=== PATIENT | female | born 1960 | race Caucasian/White ===

== ENCOUNTER → 2018-09-06 09:59 | Outpatient (CLI) | payer OTHER, SELFPAY ==
[2018-09-06 12:20] LABS: Anion Gap 5 (5-15); BUN 15 mg/dL (7-18); Calcium,Total 8.9 mg/dL (8.5-10.1); Chloride 104 mmol/L (98-107); Creatinine, Serum 0.83 mg/dL (0.55-1.02); EST Glomerular Filtration Rate 75 mL/min (>60); Est Glom Filt Rate - Afr Amer 91 mL/min (>60); Glucose 87 mg/dL (74-106); Sodium Level 140 mmol/L (136-145)
== END ==
PROVIDERS: Family Provider Family Medicine; PCP Family Medicine; Visit Provider Family Medicine
DX: I10 Essential (primary) hypertension (principal)
CPT/HCPCS: 36415; 80048

== ENCOUNTER → 2019-03-06 16:46 | Outpatient (CLI) | payer OTHER, SELFPAY ==
--- NOTE | 2019-03-06 16:52 | RAD_ITS ---
STUDY: X-RAY - RIGHT WRIST REASON FOR EXAM: Female, 59 years old. Increasing wrist pain TECHNIQUE: 3 view(s) of the wrist were obtained. COMPARISON: None. FINDINGS: Scapholunate advanced collapse is noted. There is fragmentation of the lunate. Soft tissues are intact. 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 Electronically Signed: Gonzalo Vega MD at 9:20 EDT Tel , Service support ,
--- NOTE | 2019-03-06 16:53 | RAD_ITS ---
STUDY: X-RAY - LEFT HAND REASON FOR EXAM: Female, 59 years old. Increasing left hand pain TECHNIQUE: 3 view(s) of the hand. COMPARISON: None. FINDINGS: Normal radiocarpal articulation. Normal distal radioulnar joint. Normal visualized carpal bones. Normal carpal articulations Normal carpometacarpal articulation of the thumb. Normal second through fifth carpometacarpal joints. Normal metacarpi. Normal metacarpophalangeal joint of the thumb. Normal interphalangeal joint of the thumb. Normal proximal and distal phalanges of the thumb. Normal metacarpophalangeal joints of the second through fifth fingers. Second digit distal interphalangeal osteoarthritis. Normal phalanges of the second through fifth fingers. The soft tissue structures are unremarkable. RAD/Hand Min 3 Views IMPRESSION: Second digit distal interphalangeal osteoarthritis. Electronically Signed: Gonzalo Vega MD at 9:12 EDT Tel , Service support ,
[2019-03-06 18:06] LABS: Erythrocyte Sedimentation Rate 8 mm/hr (0-30)
[2019-03-06 18:08] LABS: Absolute Lymphocyte Count 3.28 X10^3/ul (0.83-4.51); Absolute Neutrophil Count 6.6 X10^3/uL (2.0-7.7); Basophil# 0.06 X10^3/uL; Basophil% 0.6 % (0-1); Eosinophil# 0.19 X10^3/uL; Eosinophils% 1.8 % (0-5); Hematocrit 43.2 % (37-47); Hemoglobin 14.2 g/dl (12.0-15.0); Lymphocyte # 3.28 X10^3/ul (4.0); Lymphocyte % 30.5 % (19-41); Mean Corp Hgb Conc 32.9 g/gl (32-36); Mean Corpuscular Hgb 28.2 pg (27.0-32.0); Mean Corpuscular Volume 85.9 fL (81-99); Mean Platelet Vol. 10.6 fl (6.2-12.0); Monocyte# 0.62 X10^3/uL; Monocyte% 5.8 % (0-10); Neutrophil # 6.59 X10^3/uL (2.7-7.7); Neutrophil % 61.1 % (47-70); POSITIVE COUNT NO; POSITIVE DIFFERENTIAL NO; POSITIVE MORPHOLOGY NO; Platelet Count 282 K/mm3 (150-450); RBC Distribution Width CV 13.8 % (11.6-14.6); RBC Distribution Width SD 43.3 fl (35.1-43.9); Red Blood Count 5.03 M/mm3 (4.2-5.4); White Blood Count 10.8 K/mm3 (4.4-11.0)
[2019-03-06 18:31] LABS: Anion Gap 7 (5-15); BUN 18 mg/dL (7-18); BUN/Creat Ratio 24.5 RATIO (10-20); Chloride 101 mmol/L (98-107); Creatinine, Serum 0.73 mg/dL (0.55-1.02); EST Glomerular Filtration Rate 87 mL/min (>60); Est Glom Filt Rate - Afr Amer 105 mL/min (>60); Glucose 88 mg/dL (74-106); Potassium 3.7 mmol/L (3.5-5.1); Rheumatoid Factor < 10.0 IU/mL (<15); Sodium Level 140 mmol/L (136-145)
[2019-03-09 15:57] LABS: ANTINUCLEAR ANTIBODIES DIRECT Negative (Negative)
== END ==
PROVIDERS: Family Provider Family Medicine; PCP Family Medicine; Referring Provider Family Medicine; Visit Provider Family Medicine
DX: M25.531 Pain in right wrist (principal); M79.642 Pain in left hand; M25.50 Pain in unspecified joint; I10 Essential (primary) hypertension
CPT/HCPCS: 36415; 73110; 73130; 80048; 85025; 85652; 86038; 86140; 86431

== ENCOUNTER → 2019-05-03 | Outpatient (CLI) | payer OTHER, SELFPAY ==
[2019-05-03 09:09] LABS: Lyme Ab Screen Interpretation REF LAB
[2019-05-05 14:01] LABS: Lyme Scn Total Ab w/Rflx <0.91 ISR (0.00-0.90)
== END | disposition home or self-care (01) ==
LOC: MFPLAB 09:07
PROVIDERS: Family Provider Family Medicine; PCP Family Medicine; Referring Provider Family Medicine; Visit Provider Family Medicine
DX: T14.8XXA Other injury of unspecified body region, initial encounter (principal); W57.XXXA Bitten or stung by nonvenomous insect and other nonvenomous arthropods, initial encounter
CPT/HCPCS: 36415; 86618

== ENCOUNTER → 2019-05-09 | Outpatient (CLI) | payer OTHER, SELFPAY ==
[2019-05-09 15:48] LABS: Absolute Lymphocyte Count 3.08 X10^3/ul (0.83-4.51); Basophil# 0.04 X10^3/uL; Basophil% 0.4 % (0-1); Eosinophil# 0.27 X10^3/uL; Eosinophils% 2.7 % (0-5); Hematocrit 43.4 % (37-47); Hemoglobin 14.4 g/dl (12.0-15.0); Lymphocyte # 3.08 X10^3/ul (4.0); Lymphocyte % 30.9 % (19-41); Mean Corp Hgb Conc 33.2 g/gl (32-36); Mean Corpuscular Hgb 27.6 pg (27.0-32.0); Mean Corpuscular Volume 83.1 fL (81-99); Mean Platelet Vol. 10.9 fl (6.2-12.0); Monocyte# 0.58 X10^3/uL; Monocyte% 5.8 % (0-10); Neutrophil # 5.98 X10^3/uL (2.7-7.7); Platelet Count 267 K/mm3 (150-450); RBC Distribution Width CV 14.1 % (11.6-14.6); RBC Distribution Width SD 42.3 fl (35.1-43.9); Red Blood Count 5.22 M/mm3 (4.2-5.4)
[2019-05-09 15:49] LABS: POSITIVE COUNT NO; POSITIVE DIFFERENTIAL NO; POSITIVE MORPHOLOGY NO
[2019-05-09 16:31] LABS: ALB/GLOB Ratio 1.2 RATIO (0.9-2.4); AST(SGOT) 25 U/L (15-37); Alanine Aminotransfer ALT/SGPT 31 U/L (13-56); Albumin, Serum 3.5 g/dL (3.2-5.0); Alkaline Phosphatase 110 U/L (45-117); Anion Gap 4 (5-15); BUN 15 mg/dL (7-18); BUN/Creat Ratio 18.9 RATIO (10-20); Calcium,Total 8.4 mg/dL (8.5-10.1); Chloride 103 mmol/L (98-107); EST Glomerular Filtration Rate 79 mL/min (>60); Est Glom Filt Rate - Afr Amer 95 mL/min (>60); Glucose 81 mg/dL (74-106); Potassium 3.8 mmol/L (3.5-5.1); Protein, Total 6.5 g/dL (6.4-8.2); Sodium Level 138 mmol/L (136-145)
== END | disposition home or self-care (01) ==
LOC: MFPLAB 13:55
PROVIDERS: Family Provider Family Medicine; PCP Family Medicine; Referring Provider Family Medicine; Visit Provider Family Medicine
DX: I10 Essential (primary) hypertension (principal); R63.5 Abnormal weight gain; M25.50 Pain in unspecified joint; E66.9 Obesity, unspecified
CPT/HCPCS: 36415; 80053; 82533; 84443; 85025

== ENCOUNTER 2020-07-27 14:59 | Outpatient (RCR) | payer OTHER, SELFPAY | END 2020-07-27 23:59 | LOC: NS 14:59 | PROVIDERS: PCP Family Medicine; Visit Provider Family Medicine | DX: Z71.3 Dietary counseling and surveillance (principal); E66.9 Obesity, unspecified; Z68.42 Body mass index [BMI] 45.0-49.9, adult | CPT/HCPCS: 97802 ==

== ENCOUNTER 2020-08-25 15:00 | Outpatient (RCR) | payer OTHER, SELFPAY | END 2020-08-26 23:59 | LOC: NS 15:00 | PROVIDERS: PCP Family Medicine; Visit Provider Family Medicine | DX: Z71.3 Dietary counseling and surveillance (principal); E66.9 Obesity, unspecified; Z68.42 Body mass index [BMI] 45.0-49.9, adult | CPT/HCPCS: 97803 ==

== ENCOUNTER 2020-09-08 16:33 | Outpatient (RCR) | payer OTHER, SELFPAY | END 2020-09-26 23:59 | LOC: NS 16:33 | PROVIDERS: PCP Family Medicine; Visit Provider Family Medicine | DX: Z71.3 Dietary counseling and surveillance (principal); E66.9 Obesity, unspecified; Z68.42 Body mass index [BMI] 45.0-49.9, adult | CPT/HCPCS: 97803 ==

== ENCOUNTER 2020-10-12 15:00 | Outpatient (RCR) | payer OTHER, SELFPAY | END 2020-10-26 23:59 | LOC: NS 15:00 | PROVIDERS: PCP Family Medicine; Visit Provider Family Medicine | DX: Z71.3 Dietary counseling and surveillance (principal); E66.9 Obesity, unspecified; Z68.42 Body mass index [BMI] 45.0-49.9, adult | CPT/HCPCS: 97803 ==

== ENCOUNTER 2020-11-16 09:00 | Outpatient (RCR) | payer OTHER, SELFPAY | END 2020-11-26 23:59 | LOC: NS 09:00 | PROVIDERS: PCP Family Medicine; Visit Provider Family Medicine | DX: Z71.3 Dietary counseling and surveillance (principal); E66.9 Obesity, unspecified; Z68.42 Body mass index [BMI] 45.0-49.9, adult | CPT/HCPCS: 97803 ==

== ENCOUNTER 2020-12-14 08:56 | Outpatient (RCR) | payer OTHER, SELFPAY | END 2020-12-27 23:59 | LOC: NS 08:56 | PROVIDERS: PCP Family Medicine; Visit Provider Family Medicine | DX: Z71.3 Dietary counseling and surveillance (principal); E66.9 Obesity, unspecified; Z68.42 Body mass index [BMI] 45.0-49.9, adult | CPT/HCPCS: 97803 ==

== ENCOUNTER 2021-01-18 15:30 | Outpatient (RCR) | payer OTHER, SELFPAY | END 2021-01-24 23:59 | LOC: NS 15:30 | PROVIDERS: PCP Family Medicine; Visit Provider Family Medicine | DX: Z71.3 Dietary counseling and surveillance (principal); E66.9 Obesity, unspecified; Z68.42 Body mass index [BMI] 45.0-49.9, adult | CPT/HCPCS: 97803 ==

== ENCOUNTER → 2021-04-19 15:47 | Outpatient (CLI) | payer OTHER, SELFPAY ==
--- NOTE | 2021-04-19 15:50 | RAD_ITS ---
STUDY: X-RAY - PELVIS AND LEFT HIP REASON FOR EXAM: Female, 61 years old. Left hip pain TECHNIQUE: 3 views of the pelvis and hip. COMPARISON: None. FINDINGS: There is a non-specific bowel gas pattern. Normal visualized soft tissue structures. Normal bilateral iliac wings, sacroiliac joints and visualized sacrum. Normal bilateral superior and inferior pubic rami. Normal pubic symphysis. Normal bilateral ischial tuberosities. Normal visualized femoral head. Normal acetabulum. Normal hip joint. RAD/HIP, UNI W/ Pelvis 2-3 Views IMPRESSION: Normal x-ray examination of the pelvis and hip. Electronically Signed: Michael White MD at 10:13 EDT , Service support ,
== END ==
PROVIDERS: PCP Family Medicine; Referring Provider Nurse Practitioner Family; Visit Provider Nurse Practitioner Family
DX: M25.552 Pain in left hip (principal)
CPT/HCPCS: 73502

== ENCOUNTER → 2021-06-15 16:11 | Outpatient (CLI) | payer OTHER, SELFPAY ==
[2021-06-15 17:59] LABS: Anion Gap 6 (5-15); BUN 15 mg/dL (7-18); Calcium,Total 8.8 mg/dL (8.5-10.1); Chloride 102 mmol/L (98-107); Creatinine, Serum 0.88 mg/dL (0.55-1.02); EST Glomerular Filtration Rate 69 mL/min (>60); Est Glom Filt Rate - Afr Amer 84 mL/min (>60); Glucose 79 mg/dL (74-106); Potassium 3.5 mmol/L (3.5-5.1); Sodium Level 140 mmol/L (136-145)
== END ==
PROVIDERS: PCP Family Medicine; Visit Provider Family Medicine
DX: I10 Essential (primary) hypertension (principal); Z20.822 Contact with and (suspected) exposure to COVID-19
CPT/HCPCS: 36415; 80048; 86769

== ENCOUNTER → 2021-10-25 10:27 | Outpatient (CLI) | payer OTHER, SELFPAY ==
--- NOTE | 2021-10-25 10:31 | RAD_ITS ---
STUDY: X-RAY - LEFT SHOULDER REASON FOR EXAM: Female, 61 years old. Shoulder pain. TECHNIQUE: 4 view(s) of the shoulder. COMPARISON: MRI of the left shoulder dated 04/23/2014. FINDINGS: Osteopenia. Severe arthrosis of the glenohumeral joint with substantial osteophyte formation. Moderate arthrosis of the AC joint. Small subacromial spur. Sclerosis and cystic change of the greater tuberosity. At least 2 intra-articular osteochondral bodies, the largest of which measures approximately 13 mm in diameter. Normal visualized pulmonary apex. RAD/Shoulder min 2 Views IMPRESSION: Osteopenia with severe arthrosis of the glenohumeral joint. Moderate arthrosis of the AC joint. Sclerosis and cystic change of the humeral head. Intra-articular osteochondral bodies. Electronically Signed: Glenn Elaine MD at 11:22 EST , Service support ,
== END ==
PROVIDERS: PCP Family Medicine; Referring Provider Family Medicine; Visit Provider Family Medicine
DX: M25.512 Pain in left shoulder (principal)
CPT/HCPCS: 73030

== ENCOUNTER 2022-01-26 09:10 | Outpatient (CLI) | payer OTHER, SELFPAY ==
[2022-01-26 10:31] LABS: Color, Urine Yellow (Yellow); Glucose, Dipstick Normal (Normal); Ketone-Dipstick Negative (Negative); Leukocyte Esterase-Dipstick Negative /ul (Negative); Nitrite-Dipstick Negative (Negative); Occult Blood-Urine Negative /ul (Negative); Protein-Dipstick Negative (Negative); Specific Gravity, Urine 1.015 (1.002-1.030); Urine Bilirubin Dipstick Negative (Negative); Urine Clarity Clear (Clear); Urine Urobilinogen Normal (Normal)
[2022-01-26 10:38] LABS: Absolute Lymphocyte Count 1.86 X10^3/uL (0.83-4.51); Absolute Neutrophil Count 4.8 X10^3/uL (2.0-7.7); Basophil# 0.05 X10^3/uL; Basophil% 0.7 % (0-1); Eosinophil# 0.07 X10^3/uL; Hematocrit 43.4 % (37-47); Hemoglobin 14.3 g/dL (12.0-15.0); Lymphocyte # 1.86 X10^3/ul (0.83-4.51); Lymphocyte % 25.4 % (19-41); Mean Corp Hgb Conc 32.9 g/dL (32-36); Mean Corpuscular Hgb 27.7 pg (27.0-32.0); Mean Corpuscular Volume 83.9 fL (81-99); Monocyte# 0.51 X10^3/uL; NRBC Flagged by Analyzer 0 % (0-5); Neutrophil # 4.82 X10^3/uL (2.7-7.7); Neutrophil % 65.6 % (47-70); Platelet Count 272 K/mm3 (150-450); RBC Distribution Width CV 14.6 % (11.6-14.6); RBC Distribution Width SD 44.2 fl (35.1-43.9); Red Blood Count 5.17 M/mm3 (4.2-5.4); White Blood Count 7.3 K/mm3 (4.4-11.0)
[2022-01-26 10:47] LABS: International Normalized Ratio 0.9; Prothrombin Time (Protime)PT. 11.9 SECONDS (11.7-14.9)
[2022-01-26 10:48] LABS: Partial Thromboplast Time 32.4 Seconds (24.1-36.2)
[2022-01-26 11:01] LABS: Cholesterol 188 mg/dL (200); High Density Lipoprotein 57 mg/dL; Thyroid Stim Hormone (TSH) 0.83 uIU/mL (0.358-3.74); Triglycerides 73 mg/dL; Very Low Density Lipoprotein 15 mg/dL (5-40)
[2022-01-26 11:03] LABS: Vitamin D,25 Hydroxy 47.5 ng/mL
[2022-01-26 11:08] LABS: Anion Gap 6 (5-15); BUN 14 mg/dL (7-18); BUN/Creat Ratio 18.3 RATIO (10-20); Calcium,Total 9.6 mg/dL (8.5-10.1); Chloride 104 mmol/L (98-107); Creatinine, Serum 0.76 mg/dL (0.55-1.02); EST Glomerular Filtration Rate 82 mL/min (>60); Est Glom Filt Rate - Afr Amer 99 mL/min (>60); Glucose 112 mg/dL (74-106); Potassium 4.1 mmol/L (3.5-5.1); Sodium Level 140 mmol/L (136-145)
== END 2022-01-26 23:59 | disposition home or self-care (01) ==
LOC: MFPLAB 09:11
PROVIDERS: Orthopaedic Surgery; PCP Family Medicine; Referring Provider Family Medicine; Visit Provider Family Medicine
DX: Z01.812 Encounter for preprocedural laboratory examination (principal); Z01.818 Encounter for other preprocedural examination; I10 Essential (primary) hypertension; Z13.220 Encounter for screening for lipoid disorders; Z13.29 Encounter for screening for other suspected endocrine disorder; Z13.21 Encounter for screening for nutritional disorder; Z00.00 Encounter for general adult medical examination without abnormal findings
CPT/HCPCS: 36415; 80048; 80061; 81002; 82306; 84443; 85025; 85610; 85730; 87086; 87088

== ENCOUNTER → 2022-05-31 | Outpatient (CLI) | payer OTHER, SELFPAY ==
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
== END | disposition home or self-care (01) ==
LOC: MTRAD 10:51
PROVIDERS: PCP Family Medicine; Referring Provider Family Medicine; Visit Provider Family Medicine
DX: M79.604 Pain in right leg (principal); S80.10XA Contusion of unspecified lower leg, initial encounter
CPT/HCPCS: 73590; 73610

== ENCOUNTER → 2023-05-23 | Outpatient (CLI) | payer OTHER, SELFPAY ==
[2023-05-23 12:49] LABS: Erythrocyte Sedimentation Rate 11 mm/hr (0-30)
[2023-05-23 14:06] LABS: Anion Gap 8 (5-15); BUN 15 mg/dL (7-18); BUN/Creat Ratio 17.1 RATIO (10-20); Calcium,Total 9.3 mg/dL (8.5-10.1); Chloride 104 mmol/L (98-107); Cholesterol 208 mg/dL (200); Creatinine, Serum 0.88 mg/dL (0.55-1.02); EST Glomerular Filtration Rate 70 mL/min (>60); Est Glom Filt Rate - Afr Amer 84 mL/min (>60); Glucose 103 mg/dL (74-106); High Density Lipoprotein 66 mg/dL; Potassium 4.2 mmol/L (3.5-5.1); Sodium Level 138 mmol/L (136-145); Triglycerides 97 mg/dL; Very Low Density Lipoprotein 19 mg/dL (5-40)
[2023-05-23 15:53] LABS: Hemoglobin A1c 5.2 % (3.8-5.6)
== END | disposition home or self-care (01) ==
LOC: MFPLAB 10:46
PROVIDERS: PCP Family Medicine; Visit Provider Family Medicine
DX: R73.01 Impaired fasting glucose (principal); R79.89 Other specified abnormal findings of blood chemistry; I10 Essential (primary) hypertension
CPT/HCPCS: 36415; 80048; 80061; 82533; 83036; 85652

== ENCOUNTER → 2023-05-25 | Outpatient (CLI) | payer OTHER, SELFPAY ==
[2023-05-29 18:07] LABS: Cortisol, Free 24Ur 14 ug/24 hr (6-42); Cortisol, Urinary Free 7 ug/L (Undefined)
== END | disposition home or self-care (01) ==
PROVIDERS: PCP Family Medicine; Referring Provider Family Medicine; Visit Provider Family Medicine
DX: R79.89 Other specified abnormal findings of blood chemistry (principal)
CPT/HCPCS: 81050; 82530

== ENCOUNTER → 2023-12-19 | Outpatient (CLI) | payer OTHER, SELFPAY ==
--- NOTE | 2023-12-19 13:00 | BD_ITS ---
STUDY: DUAL ENERGY X-RAY ABSORPTIOMETRY / DXA REASON FOR EXAM: Female, 63 years old. [id number] TECHNIQUE: Bone Mineral Density (BMD) measurements of lumbar spine and bilateral hips were obtained. COMPARISON: None. FINDINGS: Lumbar Spine (L1-L4): g/cm2 (1.030) / T-score (0.5) / Z-score (2.0) Findings are suggestive of normal bone density with a low fracture risk. Left Femur Total: g/cm2 (0.850) / T-score (-0.8) / Z-score (0.3) Left Femoral Neck: g/cm2 (0.666) / T-score (-1.7) / Z-score (-0.2) Right Femur Total: g/cm2 (0.851) / T-score (-0.7) / Z-score (0.4) Right Femoral Neck: g/cm2 (0.622) / T-score (-2.0) / Z-score (-0.6) BD/Dexa Bone Density Study IMPRESSION: The patient is considered osteopenic as outlined below according to World Haresh Organization (WHO) criteria with a moderate fracture risk. Reference Information: The T-score is the number of standard deviations above or below the standard which is normal for young adults at their peak bone mineral density. The World Health Organization (WHO) interprets the T-scores as follows: Above -1 Normal bone density Between -1 and -2.5 Osteopenia Equal to / or below -2.5 Osteoporosis As a practical clinical guideline, osteopenia may be graded as follows: Mild -1 through -1.5 Moderate -1.6 through -2.0 Severe -2.1 through -2.4 The Z-score is the number of standard deviations above or below age-matched controls. A Z-score of less than -1.5 would be considered abnormal. References: 1. NIH Osteoporosis and Related Bone Diseases www osteo.org 2. International Society for Clinical Densitometry www iscd.org 3. National Osteoporosis Foundation www nof.org Electronically Signed: Maxime Armstrong MD at 16:16 EST ,
--- OUTSIDE RECORDS SUMMARY | 2023-12-19 13:19 | XMS RPT_ITS | CCD ---
Author Name Unknown Address [address] [facility] [address] [place] [address] Organization [facility] Care Team Providers Care Stone [employer] Name Role Phone CHRIS NAQVI (TUTORIAL LABORATORY SUPERVISOR) Unavailable Unava ilable WAYNE PRISON KEEPER-TUTORIAL LABORATORY SUPERVISOR, DANIEL Primary Care Physician DR. MALI GREY DO Attending Unavail able WAYNE PRISON KEEPER-TUTORIAL LABORATORY SUPERVISOR, DANIEL Attending Unavail able WAYNE PRISON KEEPER-TUTORIAL LABORATORY SUPERVISOR, [place] Primary Care Unavail able WAYNE PRISON KEEPER-TUTORIAL LABORATORY SUPERVISOR, DANIEL Attending Unavail able WAYNE PRISON KEEPER-TUTORIAL LABORATORY SUPERVISOR, [place] Primary Care Unavail able Allergies Allergy Classification Reported Allergen(s) Allergy Type Date of Onset Reaction(s) Facility (3 sources) erythromycin; Translations: [ERYTHROMYCIN] Drug Allergy 5 [facility], anaphylaxis [facility] Repository (1 source) escitalopram; Translations: [ESCITALOPRAM OXALATE] Drug Allergy 5 [facility] Rep[facility] (1 source) sertraline; Translations: [SERTRALINE HCL] Drug Allergy 5 [facility] Rep[facility] Medications Current Medications Medication Drug Class(es) Dates Sig (Normalized) Sig (Original) Albuterol (Eqv-Proventil HFA) 90 mcg/inh inhalation aerosol (2 sources) Start: 2 take 2 puff(s) by inhalation four times daily as needed for cough Albuterol (Eqv-Proventil HFA) 90 mcg/inh inhalation aerosol INHALE 2 PUFFS 4 TIMES A DAY NEEDED FOR COUGH Start Date: 09/19/22 Status: Ordered hydroCHLOROthiazide 25 mg oral tablet (2 sources) Thiazide Diuretic Start: hydroCHLOROthiazide 25 mg oral tablet Dose : 25 mg = 1 tab(s), Oral, qDay, # 90 tab(s), 0 Refill(s) Start Date: 09/19/22 Status: Ordered Problems Problem Classification Problem Date Documented Date Episodic/Chronic Immunizations and screening for infectious disease (2 sources) Encounter for screening for human papillomavirus (HPV); Translations: [Encounter for screening for human papillomavirus (HPV)] Onset: 09-19-2022 Episodic Other screening for suspected conditions (not mental disorders or infectious disease) (2 sources) Encounter for screening for malignant neoplasm of cervix; Translations: [Encounter for screening for malignant neoplasm of cervix] Onset: 09-19-2022 Episodic Results Test Name Value Interpretation Reference Range Facil ity Encounters Encounter Date Encounter Type Care Provider Facility Start: 09-19-2022 End: 09-24-2022 ambulatory DANIEL BALDERRAMA Facility:B Start: 09-19-2022 End: 09-24-2022 Encounter for gynecological examination (general) (routine) without abnormal findings DANIEL BALDERRAMA Facility:[facility] Start: 09-19-2022 End: 09-23-2022 Outreach Lab DANIEL BALDERRAMA [facility] Start: 09-19-2022 End: 09-20-2022 ambulatory DANIEL BALDERRAMA Facility:B Start: 09-19-2022 End: 09-19-2022 Patient encounter procedure DANIEL BALDERRAMA [facility] Start: 11-18-2021 End: 11-19-[address] MALI GREY DO Facility:[facility] Start: 11-18-2021 End: 11-18-[address] MALI GREY DO [facility] Start: 06-08-2017 End: 06-09-2017 Ambulatory CHRIS (TUTORIAL LABORATORY SUPERVISOR) [facility] Procedures Date Procedure Procedure Detail Performing Clinician section DANIEL MATA SON PRISON KEEPER-TUTORIAL LABORATORY SUPERVISOR Cholecystectomy DANIEL JACOB ON PRISON KEEPER-TUTORIAL LABORATORY SUPERVISOR Excision of colon DANIEL TIM PRISON KEEPER-TUTORIAL LABORATORY SUPERVISOR Injury of ankle (disorder) S ONEL WAYNE PRISON KEEPER-TUTORIAL LABORATORY SUPERVISOR Immunizations Immunization Date Immunization Notes Care Provider Aden hearn 08-20-2021 SARS-CoV-2 mRNA (tozinameran) vaccine DANIEL WAYNE PRISON KEEPER-TUTORIAL LABORATORY SUPERVISOR [facility] Payers Date Payer Category Payer Unknown [id number] 1960 Unknown [id number] 1960 Unknown [id number] 1960 Unknown [id number] Social History Date Type Detail Facility [facility] Sex Assigned At Female [facility] Start: 09-19-2022 Tobacco smoking status Never s moked tobacco (finding) [facility] Evaluation + Plan note 09-19-2022 Laboratory Note Date & Type Note Facility 09-19-2022 Evaluation + Plan note Future Scheduled TestsPathology Line Assembly Utility Worker Request 09/19/22 [facility] Evaluation + Plan note 09-19-2022 Laboratory Note Date & Type Note Facility 09-19-2022 Evaluation + Plan note Diagnostic Tests PendingHPV Screen, DNA Probe 09/19/22 Future Scheduled TestsPathology Line Assembly Utility Worker Request 09/19/22 [facility] Evaluation + Plan note Note Date & Type Note Facility Evaluation + Plan note No data available for this section [facility] Hospital Discharge instructions Note Date & Type Note Facility Hospital Discharge instructions No data available for this section [facility] Progress note Note Date & Type Note Facility Progress note No data available for this section [facility] Summary Purpose Family History No Family History Records FoundNo Family History Records Found Advance Directives No Advanced Directives Records FoundNo Advanced Directives Records Found Additional Source Comments INFORMATION SOURCE (unrecogn ized section and content) DATE CREATED AUTHOR AUTHOR'S ORGANIZ ATION 10/14/2022 [facility] ([place]) Care Team (unrecognized sect ion and content) Care Team Personnel Name: DANIEL WAYNE Position: P4 ASPHALT ROLLER OPERATOR Provider Member Role: Primary Care Physician Address: Address: [address] [place] [id number] [place] [address] Care Team Related Persons Name: TOM MARADIAGA Name: DANNY CORCORAN Address: [address] [phone] Name: DANNY CORCORAN Address: [address] [phone] Care Team Personnel Name: DANIEL WAYNE Position: P4 ASPHALT ROLLER OPERATOR Provider Member Role: Primary Care Physician Address: Address: [address] [place] [id number] [place] [address] Care Team Related Persons Name: TOM MARADIAGA Name: DANNY CORCORAN Address: [address] [phone] [place] Name: DANNY CORCORAN Address: [address] [phone] FOR RECORDS PERTAINING TO PATIENTS WHO ARE OR HAVE BEEN ENROLLED IN A CHEMICAL DEPENDENCY/SUBSTANCEABUSE PROGRAM, SOME INFORMATION MAY BE OMITTED. This clinical summary was aggregated from multiple sources. Caution should be exercised in using it in the provision of clinical care. This summary normalizes information from multiple sources, and as a consequence, information in this document may materially change the coding, format and clinical context of patient data. In addition, data may be omitted in some cases. CLINICAL DECISIONS SHOULD BE BASED ON THE PRIMARY CLINICAL RECORDS. [employer] [facility]. provides no warranty or guarantee of the accuracy or completeness of information in this document.
== END | disposition home or self-care (01) ==
LOC: OPBD 12:49
PROVIDERS: PCP Family Medicine; Referring Provider Family Medicine; Visit Provider Family Medicine
DX: Z78.0 Asymptomatic menopausal state (principal)
CPT/HCPCS: 77080

== ENCOUNTER → 2024-02-15 | Outpatient (CLI) | payer OTHER, SELFPAY ==
--- NOTE | 2024-02-15 10:54 | VDLE_ITS ---
Reason For Study: Left leg pain Procedure LEFT This is a venous duplex using B-mode, color GSV is normal. flow and spectral Doppler. CFV is compressible, spontaneous, phasic, Exam performed in department. competent, and demonstrates normal A preliminary report was called and/or faxed augmentation. to Dr. Vela. FV is compressible, spontaneous, phasic, competent and demonstrates normal augmentation. POP V is compressible, spontaneous, phasic, competent and demonstrates normal augmentation. T/P Trunk is compressible. PTV is compressible. LT PerV is compressible. VL/Venous Duplex US, Unilateral Interpretation Summary There is no evidence of left lower extremity deep vein thrombosis. Left great s aphenous vein appears patent and compressible segmentally. Ordering Physician: Cornell Vela Referring Physician: Cornell Vela Performed By: Veronica Harper RVT and Student
== END | disposition home or self-care (01) ==
LOC: CVS 10:53
PROVIDERS: PCP Family Medicine; Referring Provider Family Medicine; Visit Provider Family Medicine
DX: M79.605 Pain in left leg (principal)
CPT/HCPCS: 93971

== ENCOUNTER → 2024-03-05 | Outpatient (CLI) | payer OTHER, SELFPAY ==
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
== END | disposition home or self-care (01) ==
LOC: MTRAD 15:41
PROVIDERS: PCP Family Medicine; Referring Provider Family Medicine; Visit Provider Family Medicine
DX: M79.605 Pain in left leg (principal); M54.42 Lumbago with sciatica, left side
CPT/HCPCS: 72110

== ENCOUNTER → 2024-03-28 | Outpatient (CLI) | payer OTHER, SELFPAY ==
[2024-03-28 17:57] LABS: Rheumatoid Factor < 10.0 IU/mL (<15)
[2024-03-30 12:09] LABS: CCP IgG Antibodies 3 units (0-19)
[2024-04-01 14:08] LABS: ANTINUCLEAR ANTIBODIES DIRECT Negative (Negative)
== END | disposition home or self-care (01) ==
LOC: MFPLAB 15:48
PROVIDERS: PCP Family Medicine; Visit Provider Family Medicine
DX: M54.50 Low back pain, unspecified (principal)
CPT/HCPCS: 36415; 86038; 86200; 86431

== ENCOUNTER → 2024-06-27 | Outpatient (CLI) | payer OTHER, SELFPAY ==
--- NOTE | 2024-06-27 14:17 | RAD_ITS ---
STUDY: X-RAY - RIGHT FOOT CLINICAL: Female, 64 years old. METATARSALGIA TECHNIQUE: 3 views of the right foot. COMPARISON: None. FINDINGS: Intact talus, calcaneus, and tarsal bones. There is a talocalcaneal fusion screw in place. Normal visualized talonavicular, calcaneocuboid, tarsal and tarsometatarsal articulations. Normal metatarsi. Normal metatarsophalangeal joint of the great toe. Normal tibial and fibular sesamoid bones. Normal interphalangeal joint of the great toe. Normal phalanges of the great toe. Normal second through fifth metatarsophalangeal joints. Normal interphalangeal joints and phalanges of the lesser toes. The soft tissue structures are unremarkable. There is no demonstrated fracture. RAD/Foot min 3 Views IMPRESSION: Talocalcaneal fusion screw in place. No demonstrated fracture. Electronically Signed: Martin Ochoa MD at 16:13 EDT ,
== END | disposition home or self-care (01) ==
PROVIDERS: PCP Family Medicine; Referring Provider Podiatrist; Visit Provider Podiatrist
DX: M77.41 Metatarsalgia, right foot (principal)
CPT/HCPCS: 73630

== ENCOUNTER → 2024-08-20 | Outpatient (CLI) | payer OTHER, SELFPAY | END | disposition home or self-care (01) | LOC: MFPLAB 13:49 | PROVIDERS: PCP Family Medicine; Visit Provider Family Medicine | DX: N39.0 Urinary tract infection, site not specified (principal) | CPT/HCPCS: 87086; 87088; 87186 ==

== ENCOUNTER → 2024-11-21 | Outpatient (CLI) | payer OTHER, SELFPAY ==
--- NOTE | 2024-11-21 12:35 | RAD_ITS ---
STUDY: X-RAY - RIGHT SHOULDER REASON FOR EXAM: Female, 64 years old. pain with motion TECHNIQUE: 4 view(s) of the shoulder. COMPARISON: None. FINDINGS: There is moderate degenerative arthrosis of the glenohumeral articulation. There is degenerative arthrosis of the acromioclavicular joint without inferior osseous spur formation. Normal acromion. Normal humeral head and visualized proximal humerus. The soft tissue structures are unremarkable. Normal visualized pulmonary apex. RAD/Shoulder min 2 Views IMPRESSION: Moderate glenohumeral and acromioclavicular joint arthrosis. Electronically Signed: Gonzalez Mcadams MD at 17:54 EST ,
== END | disposition home or self-care (01) ==
LOC: MTRAD 12:34
PROVIDERS: PCP Family Medicine; Referring Provider Family Medicine; Visit Provider Family Medicine
DX: M25.511 Pain in right shoulder (principal)
CPT/HCPCS: 73030

== ENCOUNTER → 2025-06-17 | Outpatient (CLI) | payer OTHER, SELFPAY ==
[2025-06-17 16:18] LABS: Hematocrit 40.4 % (37-47); Hemoglobin 12.4 g/dL (12.0-15.0); Immature Granulocytes Count 0.030 X10^3/uL (0.0-0.0); Mean Corp Hgb Conc 30.7 g/dL (32-36); Mean Corpuscular Volume 81.6 fL (81-99); Mean Platelet Vol. 10.6 fl (6.2-12.0); NRBC Flagged by Analyzer 0 % (0-5); Platelet Count 370 K/mm3 (150-450); RBC Distribution Width CV 15.4 % (11.6-14.6); RBC Distribution Width SD 45.7 fl (35.1-43.9); Red Blood Count 4.95 M/mm3 (4.2-5.4); White Blood Count 8.7 K/mm3 (4.4-11.0)
[2025-06-17 16:41] LABS: AST(SGOT) 22 U/L (<=31); Alanine Aminotransfer ALT/SGPT 18 U/L (<=34); Albumin, Serum 3.9 g/dL (3.4-4.8); Alkaline Phosphatase 100 U/L (35-104); Anion Gap 12 (5-15); BUN 14 mg/dL (4-19); BUN/Creat Ratio 18.5 RATIO (10-20); CRP 24.20 mg/L (0.0-3.0); Calcium,Total 9.4 mg/dL (7.6-11.0); Carbon Dioxide 25.6 mmol/L (21.0-32.0); Chloride 103 mmol/L (98-108); Globulin 3.0 g/dL (2.2-4.2); Glucose 91 mg/dL (70-99); Potassium 4.1 mmol/L (3.3-5.1)
== END | disposition home or self-care (01) ==
LOC: MFPLAB 10:37
PROVIDERS: PCP Family Medicine; Referring Provider Family Medicine; Visit Provider Family Medicine
DX: R10.31 Right lower quadrant pain (principal)
CPT/HCPCS: 36415; 80053; 85025; 85652; 86140

== ENCOUNTER → 2025-07-08 | Outpatient (CLI) | payer OTHER, SELFPAY ==
--- OUTSIDE RECORDS SUMMARY | 2025-07-08 06:38 | XMS RPT_ITS | CCD ---
Author Organization 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 MALI GREY DO Attending Unavail able WAYNE C[employer]TER [employer] PRESSER-WEED SPRAYER, DATTO Attending Unavail able WAYNE CUTTER AND PRESSER-WEED SPRAYER, DATTO Primary Care Unavail able WAYNE CUTTER AND PRESSER-WEED SPRAYER, DATTO Attending Unavail able WAYNE CUTTER AND PRESSER-WEED SPRAYER, DATTO Primary Care Unavail able Dr. Derek Molina Primary Care Provider Dr. Abdullahi Fenton Attending Provider [phone] Dr. Cornell Vela Referring Provider [phone] Reba Molina Primary Care Provider [phone] Unavailable Primary Care Provider UnavailBRITT Peralta Attending Unavailable [facility] Care Physician Dr. Reba Molina MD Primary Care Provider Dr. Reba Molina MD Attending Provider [phone] Dr. Reba Molina MD Referring Provider [phone] Reba Molina Attending Unavailable Reba Molina Primary Care Unavailable Reba Molina Referring Unavailable Reba Molina Attending Unavailable Reba Molina Primary Care Unavailable Reba Molina Referring Unavailable Reba Molina Attending Unavailable Reba Molina Primary Care Unavailable Reba Molina Attending Unavailable Reba Molina Primary Care Unavailable Reba Molina Referring Unavailable ROSETTA OCHOA MD Attending Unavailable WAYNE CUTTER AND PRESSER-WEED SPRAYER, DATTO Primary Care Unavail able GABRIELA FULLER ROSETTA Attending Unavailable TONE BALDERRAMA, DANIEL Primary Care Unavail able TONE BALDERRAMA, DANIEL Primary Care Unavail able TONE BALDERRAMA, DANIEL Attending Unavail halima OCHOA MD, ROSETTA Attending Unavailable TONE BALDERRAMA, DANIEL Primary Care Unavail able Allergies Allergy Classification Reported Allergen(s) Allergy Type Date of Onset Reaction(s) Facility (13 sources) Erythromycin; Translations: [erythromycin] Drug Allergy 10-27-2005 [facility] (2 sources) Escitalopram; Translations: [ESCITALOPRAM OXALATE] Drug Allergy 10-27-2005 [facility] Work Phone: (2 sources) Sertraline; Translations: [SERTRALINE HCL] Drug Allergy 10-27-2005 [facility] (1 source) Erythromycin; Translations: [ERYTHROMYCIN] Drug Allergy 10-27-2005 [facility] Repository (1 source) Erythromycin Drug Allergy 05-07-2019 [facility] Repository Medications Current Medications Medication Drug Class(es) Dates Sig (Normalized) Sig (Original) 1000 MG estradiol 0.001 MG/MG Topical Gel [Divigel] (1 source) Start: 05-13-2025 Divigel 1 mg/packet (0.1%) transdermal gel Dose = 1 packet(s), Transdermal, qDay, apply to clean, dry, intact skin on right or left upper thigh. rotate thighs daily, # 30 packet(s), 1 Refill(s), Pharmacy: [facility]/pharmacy #[id number], Menopausal symptoms, 161, cm, 05/13/25 8:33:00 EDT, Height, kg, 05/13/25 8:33:00 EDT, Dosing Weight Start Date: 05/13/25 Status: Ordered Medication Dispense Status: Completed Quantity: 30.0 Unit: packet(s) Total Allowed Fills: 2 Fills Dispensed: 0 Indications: Menopausal and female climacteric states; 500 MG estradiol 0.001 MG/MG Topical Gel [Divigel] (1 source) Start: 04-03-2025 Divigel 0.5 mg/packet (0.1%) transdermal gel Dose = 1 packet(s), Transdermal, qDay, apply to clean, dry, intact skin on right or left upper thigh. rotate thighs daily, # 30 packet(s), 11 Refill(s), Pharmacy: [facility]/pharmacy #[id number], 161, cm, 03/11/25 16:15:00 EDT, Height, kg, 03/11/25 16:15:00 EDT, Dosing Weight Start Date: 04/03/25 Status: Ordered Medication Dispense Status: Completed Quantity: 30.0 Unit: packet(s) Total Allowed Fills: 12 Fills Dispensed: 0 [id number] 200 actuat albuterol 0.09 mg/actuat metered dose inhaler (1 source) beta2-Adrenergic Agonist Start: 06-08-2017 take 2 puff(s) by inhalation every four hours as needed for wheezing albuterol HFA (VENTOLIN HFA) 90 mcg/actuation inhaler Indications: Mild intermittent asthma without complication Inhale 2 Puffs as instructed every 4 hours as needed for Wheezing/Shortness of Breath. 1 Inhaler 06/08/2017 Active Albuterol (Eqv-Proventil HFA) 90 mcg/inh inhalation aerosol (4 sources) Start: 09-19-2022 take 2 puff(s) by inhalation four times daily as needed for cough Albuterol (Eqv-Proventil HFA) 90 mcg/inh inhalation aerosol INHALE 2 PUFFS 4 TIMES A DAY NEEDED FOR COUGH Start Date: 09/19/22 Status: Ordered Medication Dispense Status: Completed Total Allowed Fills: 1 Fills Dispensed: 0 Start: 09-19-2022 take 2 puff(s) by in halation four times daily as needed for cough Albuterol (Eqv-Proventil HFA) 90 mcg/inh inhalation aerosol INHALE 2 PUFFS 4 TIMES A DAY NEEDED FOR COUGH Start Date: 09/19/22 Status: Ordered B INFANTIS/B ANI/B DESTINY/B BIFID (PROBIOTIC 4X ORAL) (1 source) B INFANTIS/B ANI /B DESTINY/B BIFID (PROBIOTIC 4X ORAL) Take by mouth. Active clobetasol propionate 0.5 mg/ml topical cream (2 sources) Corticosteroid Start: 02-21-2024 Temovate 0.05% topical cream Apply 1 eddie, Topical, qDay, apply a thin film daily for a week then 2x/week, # 30 gram(s), 0 Refill(s), Pharmacy: [facility], Cream, 161, cm, 02/21/24 10:17:00 EDT, Height, 117.2, kg, 02/21/24 10:17:00 EDT, Dosing Weight Start Date: 02/21/24 Status: Ordered Medication Dispense Status: Completed Quantity: 30.0 Unit: g Total Allowed Fills: 1 Fills Dispensed: 0 Indications: Encounter for gynecological examination (general) (routine) without abnormal findings; Lichen sclerosus et atrophicus; Body mass index [BMI] 45.0-49.9, adult; Encounter for other screening for malignant neoplasm of breast; COMPOUNDED PRESCRIPTION (1 source) Start: 11-22-2016 COMPOUNDED PRESCRIPTION Indications: MARCELINO on CPAP CPAP MASK AND TUBING AND FILTER, AND HEAD GEAR DX G47.33 1 Each 12 11/22/2016 Active 168 hr estradiol 0.67184 mg/hr transdermal system (3 sources) Estrogen Start: 09-24-2024 Climara 0.05 mg/24 hours weekly transdermal film, extended release Apply 1 patch(es), Topical, qWeek, apply to clean dry skin. Change out weekly, # 12 patch(es), 0 Refill(s), Obesity Screening for breast cancer, 161, cm, 09/24/24 16:22:00 EDT, Height, 108.4, kg, 09/24/24 16:22:00 EDT, Dosing Weight Start Date: 09/24/24 Status: Ordered Start: 02-21-2024 Estrace Vagina l 0.1 mg/g vaginal cream Dose = 1 appl, Vaginal, 2X/week, # 15 gram(s), 0 Refill(s), Pharmacy: [facility], Well woman exam Screening for breast cancer, 161, cm, 02/21/24 10:17:00 EDT, Height, kg, 02/21/24 10:17:00 EDT, Dosing Weight Start Date: 02/21/24 Status: Ordered Medication Dispense Status: Completed Quantity: 15.0 Unit: g Total Allowed Fills: 1 Fills Dispensed: 0 Indications: Encounter for gynecological examination (general) (routine) without abnormal findings; Encounter for other screening for malignant neoplasm of breast; fluticasone propionate 0.05 mg/actuat metered dose nasal spray (1 source) Corticosteroid Start: 04-04-2017 take 2 spray(s) by mouth once daily fluticasone (FLONASE) 50 mcg/actuation nasal spray Use 2 Sprays in each nostril once daily. Rinse mouth after use. 1 Bottle 11 04/04/2017 Active hydroCHLOROthiazide 25 mg oral tablet (5 sources) Thiazide Diuretic Start: 10-31-2016 hydroCHLOROthiazide 25 mg oral tablet Dose : 25 mg = 1 tab(s), Oral, qDay, # 90 tab(s), 0 Refill(s) Start Date: 09/19/22 Status: Ordered Medication Dispense Status: Completed Quantity: 90.0 Unit: tab(s) Total Allowed Fills: 1 Fills Dispensed: 0 meloxicam 15 mg oral tablet (2 sources) Nonsteroidal Anti-inflammatory Drug Start: 03-31-2017 End: 06-25-2024 take 1 tablet by mouth once daily meloxicam (MOBIC) 15 mg tablet Take 1 tablet by mouth once daily. 90 tablet 1 06/25/2024 Active PPQ mitochondrial supple (2 sources) Start: 09-24-2024 PPQ mitochondrial supple PPQ mitochondrial supple, 0 Refill(s), 110.5 Start Date: 09/24/24 Status: Ordered Medication Dispense Status: Completed Total Allowed Fills: 1 Fills Dispensed: 0 Start: 09-24-2024 PPQ mitochondr ial supple PPQ mitochondrial supple, 0 Refill(s), 110.5 Start Date: 09/24/24 Status: Ordered progesterone 100 mg oral capsule (2 sources) Progesterone Start: 04-26-2025 take 1 capsule by mouth once daily progesterone 100 mg oral capsule 1 cap(s), Oral, qDay, # 90 cap(s), 1 Refill(s), Pharmacy: [facility], 161, cm, 03/11/25 16:15:00 EDT, Height, kg, 03/11/25 16:15:00 EDT, Dosing Weight Start Date: 04/26/25 Status: Ordered Medication Dispense Status: Completed Quantity: 90.0 Unit: cap(s) Total Allowed Fills: 1 Fills Dispensed: 0 Start: 09-24-2024 End: 03-23-2025 Prometrium 100 mg oral capsu le Dose : 100 mg = 1 cap(s), Oral, qDay, # 90 cap(s), 1 Refill(s), Pharmacy: [facility], Obesity Screening for breast cancer, 161, cm, 09/24/24 16:22:00 EDT, Height, kg, 09/24/24 16:22:00 EDT, Dosing Weight Start Date: 09/24/24 Stop Date: 03/23/25 Status: Ordered 72 hr scopolamine 0.0139 mg/hr transdermal system (1 source) Anticholinergic Start: 04-21-2017 scopolamine (TRANSDERM-SCOP) 1.5 mg (1 mg over 3 days) Indications: Motion sickness, sequela Apply 1 Patch as directed every 72 hours. Apply patch to skin behind ear 4hrs prior to travel. 2 Patch 04/21/2017 Active turmeric extract 500 mg oral capsule (3 sources) Start: 05-13-2025 turmeric 500 m g oral capsule 0 Refill(s) Start Date: 05/13/25 Status: Ordered Medication Dispense Status: Completed Total Allowed Fills: 1 Fills Dispensed: 0 Start: 09-24-2024 turmeric 500 m g oral capsule 0 Refill(s) Start Date: 09/24/24 Status: Ordered take 1 tablet by shravan once daily TURMERIC ORAL Take by mouth. Takes 1 tablet daily Active Problems Active Problems Problem Classification Problem Date Documented Date Episodic/Chronic Abdominal pain (1 source) Right lower quadrant pain; Translations: [Right lower quadrant pain] Onset: 06-23-2025 Episodic Asthma (1 source) Asthma; Translations: [Unspecified asthma, uncomplicated] 11-22-2016 Chronic Essential hypertension (1 source) Essential hypertension; Translations: [Essential (primary) hypertension] Onset: 03-30-2016 03-30-2016 Chronic Immunizations and screening for infectious disease (2 sources) Encounter for screening for human papillomavirus (HPV); Translations: [Encounter for screening for human papillomavirus (HPV)] Onset: 09-19-2022 Episodic Noninfectious gastroenteritis (1 source) Noninfective gastroenteritis and colitis, unspecified; Translations: [Noninfective gastroenteritis and colitis, unspecified] Onset: 07-03-2025 Episodic Other non-traumatic joint disorders (1 source) Pain in left knee; Translations: [Pain in joint, lower leg] 07-24-2024 Episodic Other nutritional; endocrine; and metabolic disorders (1 source) Body mass index 40+ - severely obese; Translations: [Body mass index (BMI) 40.0-44.9, adult] Onset: 08-25-2014 08-25-2014 Chronic Other nutritional; endocrine; and metabolic disorders (2 sources) Obesity 07-11-2024 Chronic Residual codes; unclassified (1 source) Obstructive sleep apnea syndrome; Translations: [Obstructive sleep apnea (adult) (pediatric)] Onset: 06-24-2013 11-22-2021 Chronic Spondylosis; intervertebral disc disorders; other back problems (1 source) Lumbar radiculopathy; Translations: [Radiculopathy, lumbar region] 07-24-2024 Episodic Past or Other Problems Problem Classification Problem Date Documented Date Episodic/Chronic Acquired foot deformities (2 sources) Acquired hallux malleus; Translations: [Other hammer toe(s) (acquired), unspecified foot] Onset: 08-11-2011 Resolved: 01-31-2014 01-31-2014 Chronic Anal and rectal conditions (1 source) Anorectal pain; Translations: [Other specified diseases of anus and rectum] Onset: 10-24-2007 Resolved: 01-31-2014 01-31-2014 Episodic Disorders of lipid metabolism (1 source) Pure hyperglyceridemia; Translations: [Pure hyperglyceridemia] Onset: 01-01-2007 Resolved: 01-31-2014 01-31-2014 Chronic Diverticulosis and diverticulitis (1 source) Diverticulitis of large intestine without perforation or abscess without bleeding; Translations: [Diverticulitis of colon (without mention of hemorrhage)] Onset: 01-13-2006 Resolved: 01-31-2014 01-31-2014 Chronic Menopausal disorders (1 source) Menopausal symptom; Translations: [Menopausal and female climacteric states] Onset: 09-14-2007 Resolved: 01-31-2014 01-31-2014 Chronic Mood disorders (1 source) Dysthymia; Translations: [Dysthymic disorder] Resolved: 01-31-2014 01-31-2014 Chronic Osteoarthritis (1 source) Degenerative joint disease involving multiple joints; Translations: [Polyosteoarthritis, unspecified] Onset: 06-03-2008 Resolved: 01-31-2014 01-31-2014 Chronic Other acquired deformities (1 source) Acquired deformity of ankle AND/OR foot; Translations: [Unspecified acquired deformity of unspecified lower leg] Onset: 08-11-2011 Resolved: 01-31-2014 01-31-2014 Episodic Other and unspecified benign neoplasm (1 source) Adrenal adenoma; Translations: [Benign neoplasm of unspecified adrenal gland] Onset: 01-23-2012 Resolved: 11-22-2016 11-22-2021 Episodic Other connective tissue disease (1 source) Plantar fascial fibromatosis; Translations: [Plantar fascial fibromatosis] Onset: 06-03-2008 Resolved: 01-31-2014 01-31-2014 Episodic Other connective tissue disease (1 source) Pain in limb; Translations: [Pain in unspecified limb] Onset: 06-03-2008 Resolved: 01-31-2014 01-31-2014 Episodic Other connective tissue disease (1 source) Tendinitis; Translations: [Enthesopathy, unspecified] Onset: 08-11-2011 Resolved: 01-31-2014 01-31-2014 Episodic Other non-traumatic joint disorders (1 source) Pain in right shoulder; Translations: [Pain in right shoulder] Onset: 12-18-2024 Episodic Other screening for suspected conditions (not mental disorders or infectious disease) (5 sources) Encounter for screening for malignant neoplasm of cervix; Translations: [Patient encounter status] Onset: 04-22-2016 Resolved: 11-22-2016 Episodic Other upper respiratory disease (1 source) Disorder of the larynx; Translations: [Other diseases of larynx] Onset: 11-02-2015 11-02-2015 Episodic Urinary tract infections (1 source) Urinary tract infection, site not specified; Translations: [Urinary tract infection, site not specified] Onset: 09-19-2024 Episodic Results Test Name Value Interpretation Reference Range Facility E2on 07-03-2025 Estradiol Level 39.24 pg/mL Normal [facility] Comment on above: Result Comment: Adult Female E2 Reference Ranges: Follicular phase 19.5 - 144.2 pg/mL Midcycle 63.9 - 356.7 pg/mL Luteal phase 55.8 - 214.2 pg/mL Post menopausal 0 - 33.2 pg/mL Performed By: #### P SHANNAN, TESTO, E2 #### [place] [address] LABORATORYOrdered By: SYSTEM SYSTEM on 07-03-2025 E2 [Mass/Vol] 39.24 pg/mL Invalid Interpretation Code ADM Comment on above: Interpretive Data: Adult Female E2 Reference Ranges: Follicular phase 19.5 - 144.2 pg/mL Midcycle 63.9 - 356.7 pg/mL Luteal phase 55.8 - 214.2 pg/mL Post menopausal 0 - 33.2 pg/mL Progesterone [Mass/Vol] 10.2 ng/mL Invalid Interpretation Code [facility] Comment on above: Interpretive Data: A dult Female Progesterone Reference Ranges: Follicular phase <0.21 - 1.40 ng/mL Luteal phase 3.34 - 25.56 ng/mL Mid-Luteal phase 4.44 - 28.03 ng/mL Postmenopausal <0.21 - 0.73 ng/ml Female: First trimester 11.22 - 90.00 ng/ml Second trimester 25.55 - 89.40 ng/ml Third trimester 48.40 - 422.50 ng/ml Testosterone [Mass/Vol] ng/dL Invalid Interpretation Code [facility] Comment on above: Interpretive Data: N ormal Reference Ranges for Females: Female Premenopause Tmg73-554.01-47.94 ng/dL Female Postmenopause Bes23-82<7.00-45.62 ng/dL PROGon 07-03-2025 Progesterone Level 10.2 ng/mL [facility] Comment on above: Result Comment: Adul t Female Progesterone Reference Ranges: Follicular phase <0.21 - 1.40 ng/mL Luteal phase 3.34 - 25.56 ng/mL Mid-Luteal phase 4.44 - 28.03 ng/mL Postmenopausal <0.21 - 0.73 ng/ml Female: First trimester 11.22 - 90.00 ng/ml Second trimester 25.55 - 89.40 ng/ml Third trimester 48.40 - 422.50 ng/ml Performed By: #### P GUI CAMPBELLO, E2 #### [facility] [address] [place] [address] TESTOon 07-03-2025 Testosterone Lvl <7.00 [facility] Comment on above: Result Comment: Norm al Reference Ranges for Females: Female Premenopause Age 21-60 9.01-47.94 ng/dL Female Postmenopause Age 45-89 <7.00-45.62 ng/dL Performed By: #### P SHANNANGUIKemal, #### [facility] [address] [place] [address] Absolute lymphocyte countOrd ered By: Reba Molina on 06-17-2025 Lymphocytes Auto (Unsp spec) [#/Vol] 2.20 10*3/uL 0.83-4.51 [facility] Absolute neutrophil countOrd ered By: Reba Molina on 06-17-2025 Neutrophils (Bld) [#/Vol] 5.6 10*3/uL 2.0-7.7 [facility] Anion gap in Serum or Plasma Ordered By: Reba Molina on 06-17-2025 Anion gap [Moles/Vol] 12 mmol/L 5- [facility] Automated lymphocyte count a s percentage of total leukocytesOrdered By: Reba Molina on 06-17-2025 Lymphocytes/100 WBC Auto (Unsp spec) 25.4 % - [facility] BUN/creatinine ratioOrdered By: [facility] on 06-17-2025 Urea nitrogen/Creatinine [Mass ratio] 18.5 mg/mg 10- [facility] Basophil percentageOrdered B y: Reba Molina on 06-17-2025 Basophils/100 WBC (Bld) 0.5 % 0-1 [facility] Bilirubin, totalOrdered By: Reba Molina on 06-17-2025 Bilirubin [Mass/Vol] 0.29 mg/dL 0.00-1.30 [facility] CBC W/Diff, Automatedon 05-28 Absolute Lymph 2.20 X10 3/uL Normal 0.83-4.51 [facility] Comment on above: Order Comment: Order Date: 06/16/25 Order Info: [id number] - CBCD Order Info: [id number] - SED Performed By: #### L 500.4050, L100.0100, L501.6710, L101.9900 #### [facility] [address] [place], [place], [id number] Absolute Neut 5.6 X10 3/uL Normal 2.0-7.7 [facility] Comment on above: Order Comment: Order Date: 06/16/25 Order Info: 183- - CBCD Order Info: [id number] - SED Performed By: #### L 500.4050, L100.0100, L501.6710, L101.9900 #### [facility] [address] [place], [address] Basophils/100 WBC (Bld) 0.5 % Normal 0-1 [facility] Comment on above: Order Comment: Order Date: 06/16/25 Order Info: [id number] - CBCD Order Info: [id number] - SED Performed By: #### L 500.4050, L100.0100, L501.6710, L101.9900 #### [facility] [address] [place], [address] Eosinophils/100 WBC (Bld) 2.0 % Normal 0-5 [facility] Comment on above: Order Comment: Order Date: 06/16/25 Order Info: [id number] - CBCD Order Info: [id number] - SED Performed By: #### L 500.4050, L100.0100, L501.6710, L101.9900 #### [facility] [address] [place], [address] Erythrocyte distribution width (RBC) [Ratio] 15.4 % High 11.6-14.6 [facility] Comment on above: Order Comment: Order Date: 06/16/25 Order Info: [id number] - CBCD Order Info: [id number] - SED Performed By: #### L 500.4050, L100.0100, L501.6710, L101.9900 #### [facility] [address] [place], [address] Hematocrit (Bld) [Volume fraction] 40.4 % Normal 37-47 [facility] Comment on above: Order Comment: Order Date: 06/16/25 Order Info: [id number] - CBCD Order Info: [id number] - SED Performed By: #### L 500.4050, L100.0100, L501.6710, L101.9900 #### [facility] [address] [place], [address] Hemoglobin (Bld) [Mass/Vol] 12.4 g/dL Normal 12.0-15.0 [facility] Comment on above: Order Comment: Order Date: 06/16/25 Order Info: [id number] - CBCD Order Info: - SED Performed By: #### L 500.4050, L100.0100, L501.6710, L101.9900 #### [facility] [address] [place], [address] IG% 0.300 Normal 0.0-0.9 [facility] Comment on above: Order Comment: Order Date: 06/16/25 Order Info: 183-11 - CBCD Order Info: - SED Result Comment: IG% - Immature Granulocytes (promyelocytes, myelocytes and metamyelocytes) > 1% indicates that a LEFT SHIFT is Present. Performed By: #### L 500.4050, L100.0100, L501.6710, L101.9900 #### [facility] [address] [place], [address] Lymphocytes/100 WBC (Bld) 25.4 % Normal 19-41 [facility] Comment on above: Order Comment: Order Date: 06/16/25 Order Info: [id number] - CBCD Order Info: [id number] - SED Performed By: #### L 500.4050, L100.0100, L501.6710, L101.9900 #### [facility] [address] [place], [address] MCH (RBC) [Entitic mass] 25.1 pg Low 27.0-32.0 [facility] Comment on above: Order Comment: Order Date: 06/16/25 Order Info: [id number] - CBCD Order Info: [id number] - SED Performed By: #### L 500.4050, L100.0100, L501.6710, L101.9900 #### [facility] [address] [place], [address] MCHC (RBC) [Mass/Vol] 30.7 g/dL Low 32-36 [facility] Comment on above: Order Comment: Order Date: 06/16/25 Order Info: 183- - CBCD Order Info: [id number] - SED Performed By: #### L 500.4050, L100.0100, L501.6710, L101.9900 #### [facility] [address] [place], [address] MCV (RBC) [Entitic vol] 81.6 fL Normal 81-99 [facility] Comment on above: Order Comment: Order Date: 06/16/25 Order Info: 183-11 - CBCD Order Info: [id number] - SED Performed By: #### L 500.4050, L100.0100, L501.6710, L101.9900 #### [facility] [address] [place], [address] Monocytes/100 WBC (Bld) 6.7 % Normal 0-10 [facility] Comment on above: Order Comment: Order Date: 06/16/25 Order Info: 018- - CBCD Order Info: [id number] - SED Performed By: #### L 500.4050, L100.0100, L501.6710, L101.9900 #### [facility] [address] [place], [address] Neutrophils/100 WBC (Bld) 65.1 % Normal 47-70 [facility] Comment on above: Order Comment: Order Date: 06/16/25 Order Info: [id number] - CBCD Order Info: [id number] - SED Performed By: #### L 500.4050, L100.0100, L501.6710, L101.9900 #### [facility] [address] [place], [address] Nucleated RBC (Bld) [#/Vol] 0 10*3/uL Normal 0-5 [facility] Comment on above: Order Comment: Order Date: 06/16/25 Order Info: 018- - CBCD Order Info: [id number] - SED Performed By: #### L 500.4050, L100.0100, L501.6710, L101.9900 #### [facility] [address] [place], [address] Platelet mean volume (Bld) [Entitic vol] 10.6 fL Normal 6.2-12.0 [facility] Comment on above: Order Comment: Order Date: 06/16/25 Order Info: [id number] - CBCD Order Info: [id number] - SED Performed By: #### L 500.4050, L100.0100, L501.6710, L101.9900 #### [facility] [address] [place], [address] Platelets (Bld) [#/Vol] 370 10*3/uL Normal 150-450 [facility] Comment on above: Order Comment: Order Date: 06/16/25 Order Info: [id number] - CBCD Order Info: [id number] - SED Performed By: #### L 500.4050, L100.0100, L501.6710, L101.9900 #### [facility] [address] [place], [address] RBC (Bld) [#/Vol] 4.95 10*6/uL Normal 4.2-5.4 [facility] Comment on above: Order Comment: Order Date: 06/16/25 Order Info: 018- - CBCD Order Info: [id number] - SED Performed By: #### L 500.4050, L100.0100, L501.6710, L101.9900 #### [facility] [address] [place], [address] RDW SD 45.7 fl High 35.1-43.9 [facility] Comment on above: Order Comment: Order Date: 06/16/25 Order Info: [id number] - CBCD Order Info: [id number] - SED Performed By: #### L 500.4050, L100.0100, L501.6710, L101.9900 #### [facility] [address] [place], [address] WBC (Bld) [#/Vol] 8.7 10*3/uL Normal 4.4-11.0 [facility] Comment on above: Order Comment: Order Date: 06/16/25 Order Info: [id number] - CBCD Order Info: [id number] - SED Performed By: #### L 500.4050, L100.0100, L501.6710, L101.9900 #### [facility] [address] [place], [address] CRPon 06-17-2025 C-REACTIVE PROT 24.20 mg/L High 0.0-3.0 [facility] Comment on above: Order Comment: Order Date: 06/16/25 Order Info: [id number] - CMP Order Info: [id number] - CRP Performed By: #### L 500.4050, L100.0100, L501.6710, L101.9900 #### [facility] [address] [place], [address] Carbon dioxide, total [Moles /volume] in Central venous bloodOrdered By: Reab Molina on 06-17-2025 CO2 [Moles/Vol] 25.6 mmol/L 21.0-32.0 [facility] Chloride assayOrdered By: Maribel Molina on 06-17-2025 Chloride [Moles/Vol] 103 mmol/L 98-108 [facility] Metabolic Prof ilon 06-17-2025 Albumin [Mass/Vol] 3.9 g/dL Normal 3.4-4.8 [facility] Comment on above: Order Comment: Order Date: 06/16/25 Order Info: [id number] - CMP Order Info: [id number] - CRP Performed By: #### L 500.4050, L100.0100, L501.6710, L101.9900 #### [facility] [address] [place], [address] Albumin/Globulin [Mass ratio] 1.3 {ratio} Normal 0.9-2.4 [facility] Comment on above: Order Comment: Order Date: 06/16/25 Order Info: 0786-1 - CMP Order Info: [id number] - CRP Performed By: #### L 500.4050, L100.0100, L501.6710, L101.9900 #### [facility] [address] [place], [address] ALK PHOS 100 U/L Normal 35-104 [facility] Comment on above: Order Comment: Order Date: 06/16/25 Order Info: 0786-1 - CMP Order Info: [id number] - CRP Performed By: #### L 500.4050, L100.0100, L501.6710, L101.9900 #### [facility] [address] [place], [address] ALT [Catalytic activity/Vol] 18 U/L Normal <=34 [facility] Comment on above: Order Comment: Order Date: 06/16/25 Order Info: 0786-1 - CMP Order Info: [id number] - CRP Performed By: #### L 500.4050, L100.0100, L501.6710, L101.9900 #### [facility] [address] [place], [address] AST [Catalytic activity/Vol] 22 U/L Normal <=31 [facility] Comment on above: Order Comment: Order Date: 06/16/25 Order Info: 0786-1 - CMP Order Info: [id number] - CRP Performed By: #### L 500.4050, L100.0100, L501.6710, L101.9900 #### [facility] [address] [place], [address] Bilirubin [Mass/Vol] 0.29 mg/dL Normal 0.00-1.30 [facility] Comment on above: Order Comment: Order Date: 06/16/25 Order Info: 0786-1 - CMP Order Info: [id number] - CRP Performed By: #### L 500.4050, L100.0100, L501.6710, L101.9900 #### [facility] [address] [place], [address] BUN/CRE 18.5 RATIO Normal 10-20 [facility] Comment on above: Order Comment: Order Date: 06/16/25 Order Info: 0786-1 - CMP Order Info: [id number] - CRP Performed By: #### L 500.4050, L100.0100, L501.6710, L101.9900 #### [facility] [address] [place], [address] Calcium [Mass/Vol] 9.4 mg/dL Normal 7.6-11.0 [facility] Comment on above: Order Comment: Order Date: 06/16/25 Order Info: 0786-1 - CMP Order Info: [id number] - CRP Performed By: #### L 500.4050, L100.0100, L501.6710, L101.9900 #### [facility] [address] [place], [address] Chloride [Moles/Vol] 103 mmol/L Normal 98-108 [facility] Comment on above: Order Comment: Order Date: 06/16/25 Order Info: 0786-1 - CMP Order Info: [id number] - CRP Performed By: #### L 500.4050, L100.0100, L501.6710, L101.9900 #### [facility] [address] [place], [address] CO2 [Moles/Vol] 25.6 mmol/L Normal 21.0-32.0 [facility] Comment on above: Order Comment: Order Date: 06/16/25 Order Info: 0786-1 - CMP Order Info: [id number] - CRP Performed By: #### L 500.4050, L100.0100, L501.6710, L101.9900 #### [facility] [address] [place], [address] Creatinine [Mass/Vol] 0.75 mg/dL Normal 0.70-1.20 [facility] Comment on above: Order Comment: Order Date: 06/16/25 Order Info: 0786-1 - CMP Order Info: [id number] - CRP Performed By: #### L 500.4050, L100.0100, L501.6710, L101.9900 #### [facility] [address] [place], [address] GAP 12 Normal 5-15 [facility] Comment on above: Order Comment: Order Date: 06/16/25 Order Info: 0786-1 - CMP Order Info: [id number] - CRP Performed By: #### L 500.4050, L100.0100, L501.6710, L101.9900 #### [facility] [address] [place], [address] GFR/1.73 sq M.predicted among non-blacks MDRD (S/P/Bld) [Vol rate/Area] 89 mL/min/{1.73_m2} Normal >60 [facility] Comment on above: Order Comment: Order Date: 06/16/25 Order Info: 0786-1 - CMP Order Info: [id number] - CRP Result Comment: mL/m in/1.73m2 CKD-EPI Creatinine Equation (2020) Performed By: #### L 500.4050, L100.0100, L501.6710, L101.9900 #### [facility] [address] [place], [address] Globulin (S) [Mass/Vol] 3.0 g/dL Normal 2.2-4.2 [facility] Comment on above: Order Comment: Order Date: 06/16/25 Order Info: 0786-1 - CMP Order Info: [id number] - CRP Performed By: #### L 500.4050, L100.0100, L501.6710, L101.9900 #### [facility] [address] [place], [address] Glucose [Mass/Vol] 91 mg/dL Normal 70-99 [facility] Comment on above: Order Comment: Order Date: 06/16/25 Order Info: 0786-1 - CMP Order Info: [id number] - CRP Performed By: #### L 500.4050, L100.0100, L501.6710, L101.9900 #### [facility] [address] [place], [address] Potassium [Moles/Vol] 4.1 mmol/L Normal 3.3-5.1 [facility] Comment on above: Order Comment: Order Date: 06/16/25 Order Info: 0786-1 - CMP Order Info: [id number] - CRP Performed By: #### L 500.4050, L100.0100, L501.6710, L101.9900 #### [facility] [address] [place], [address] Sodium [Moles/Vol] 141 mmol/L Normal 133-145 [facility] Comment on above: Order Comment: Order Date: 06/16/25 Order Info: 0786-1 - CMP Order Info: [id number] - CRP Performed By: #### L 500.4050, L100.0100, L501.6710, L101.9900 #### [facility] [address] [place], [address] T PROT 6.9 g/dL Normal 5.9-8.4 [facility] Comment on above: Order Comment: Order Date: 06/16/25 Order Info: 0786-1 - CMP Order Info: [id number] - CRP Performed By: #### L 500.4050, L100.0100, L501.6710, L101.9900 #### [facility] [address] [place], [address] Urea nitrogen [Mass/Vol] 14 mg/dL Normal 4-19 [facility] Comment on above: Order Comment: Order Date: 06/16/25 Order Info: 0786-1 - CMP Order Info: [id number] - CRP Performed By: #### L 500.4050, L100.0100, L501.6710, L101.9900 #### [facility] [address] [place], [address] Eosinophil percentageOrdered By: Reba Molina on 06-17-2025 Eosinophils/100 WBC (Bld) 2.0 % 0-5 [facility] Erythrocyte Sed Rateon 06-17 SED RATE 15 mm/hr Normal 0-30 [facility] Comment on above: Order Comment: Order Date: 06/16/25 Order Info: [id number] - CBCD Order Info: [id number] - SED Performed By: #### L 500.4050, L100.0100, L501.6710, L101.9900 #### [facility] [address] [place], [address] Erythrocyte distribution wid th ratioOrdered By: Reba Molina on 06-17-2025 Erythrocyte distribution width (RBC) [Ratio] 15.4 % High 11.6-14.6 [facility] Erythrocyte distribution wid th standard deviationOrdered By: Reba Molina on 06-17-2025 Erythrocyte distribution width (RBC) [Ratio] 45.7 fl High 35.1-43.9 [facility] Erythrocyte sedimentation ra teOrdered By: Reba Molina on 06-17-2025 ESR (Bld) [Velocity] 15 mm/h 0-30 [facility] Glomerular filtration rate ( GFR) estimation/1.73 sq m using serum, plasma, or whole bOrdered By: Reba Molina on 06-17-2025 GFR/1.73 sq M.predicted among non-blacks MDRD (S/P/Bld) [Vol rate/Area] 89 mL/min/{1.73_m2} >60 [facility] Comment on above: mL/min/1.73m2 CKD-EP I Creatinine Equation (2020) Hematocrit Auto (Bld) [Volum e fraction]Ordered By: Reba Molina on 06-17-2025 Hematocrit (Bld) [Volume fraction] 40.4 % 37-47 [facility] Hemoglobin measurementOrdere d By: Reba Molina on 06-17-2025 Hemoglobin (Bld) [Mass/Vol] 12.4 g/dL 12.0-15.0 [facility] Immature granulocytes/100 WB C Auto (Bld)Ordered By: Reba Molina on 06-17-2025 Immature granulocytes/100 WBC (Bld) 0.300 % 0.0-0.9 [facility] Comment on above: IG% - Immature Granu locytes (promyelocytes, myelocytes and metamyelocytes) > 1% indicates that a LEFT SHIFT is Present. Laboratory - Chemistry and C hemistry - challengeOrdered By: Reba Molina on 06-17-2025 AST [Catalytic activity/Vol] 22 U/L <32 [facility] MCV (mean corpuscular volume ) determinationOrdered By: eRba Molina on 06-17-2025 MCV (RBC) [Entitic vol] 81.6 fL 81-99 [facility] Mean corpuscular hemoglobin (MCH) determinationOrdered By: Reba Molina on 06-17-2025 MCH (RBC) [Entitic mass] 25.1 pg Low 27.0-32.0 [facility] Mean corpuscular hemoglobin concentration (MCHC) determinationOrdered By: Reba Molina on 06-17-2025 MCHC (RBC) [Mass/Vol] 30.7 g/dL Low 32-36 [facility] Mean platelet volume determi nationOrdered By: Reba Molina on 06-17-2025 Platelet mean volume (Bld) [Entitic vol] 10.6 fL 6.2-12.0 [facility] Monocyte percentageOrdered B y: Reba Molina on 06-17-2025 Monocytes/100 WBC (Bld) 6.7 % 0-10 [facility] Neutrophil percentageOrdered By: Reba Molina on 06-17-2025 Neutrophils/100 WBC (Bld) 65.1 % 47-70 [facility] Nucleated red blood cell per centageOrdered By: Reba Molina on 06-17-2025 Nucleated RBC/100 WBC (Bld) [Ratio] 0 % 0-5 [facility] Platelet countOrdered By: Maribel Molina on 06-17-2025 Platelets (Bld) [#/Vol] 370 10*3/uL 150-450 [facility] Potassium measurement (mass/ volume)Ordered By: Reba Molina on 06-17-2025 Potassium (Unsp spec) [Mass/Vol] 4.1 mmol/L 3.3-5.1 [facility] RBC Auto (Bld) [#/Vol]Ordere d By: Reba Molina on 06-17-2025 RBC (Bld) [#/Vol] 4.95 10*6/uL 4.2-5.4 [facility] Serum creatinine measurement (mass/volume)Ordered By: Reba Molina on 06-17-2025 Creatinine [Mass/Vol] 0.75 mg/dL 0.70-1.20 [facility] Serum globulin measurementOr dered By: Reba Molina on 06-17-2025 Globulin (S) [Mass/Vol] 3.0 g/dL 2.2-4.2 [facility] Serum glucose measurement (m ass/volume)Ordered By: Reba Molina on 06-17-2025 Glucose [Mass/Vol] 91 mg/dL 70-99 [facility] Serum or plasma C reactive p rotein measurement (mass/volume)Ordered By: Reba Molina on 06-17-2025 CRP [Mass/Vol] 24.20 mg/L High 0.0-3.0 [facility] Serum or plasma alanine ramos otransferase (ALT) measurementOrdered By: Reba Molina on 06-17-2025 ALT [Catalytic activity/Vol] 18 U/L <35 [facility] Serum or plasma albumin blanka urement (mass/volume)Ordered By: Reba Molina on 06-17-2025 Albumin [Mass/Vol] 3.9 g/dL 3.4-4.8 [facility] Serum or plasma albumin/glob ulin mass ratioOrdered By: Reba Molina on 06-17-2025 Albumin/Globulin [Mass ratio] 1.3 {ratio} 0.9-2.4 [facility] Serum or plasma alkaline rome sphatase measurementOrdered By: Reba Molina on 06-17-2025 ALP [Catalytic activity/Vol] 100 U/L 35-104 [facility] Serum or plasma calcium blanka urement (mass/volume)Ordered By: Reba Molina on 06-17-2025 Calcium [Mass/Vol] 9.4 mg/dL 7.6-11.0 [facility] Serum or plasma urea nitroge n measurement (mass/volume)Ordered By: Reba Molina on 06-17-2025 Urea nitrogen [Mass/Vol] 14 mg/dL 4-19 [facility] Sodium levelOrdered By: Triny Molina on 06-17-2025 Sodium [Moles/Vol] 141 mmol/L 133-145 [facility] Total proteinOrdered By: Eri Molina on 06-17-2025 Protein [Mass/Vol] 6.9 g/dL 5.9-8.4 [facility] White blood cell (WBC) count Ordered By: Reba Molina on 06-17-2025 WBC (Bld) [#/Vol] 8.7 10*3/uL 4.4-11.0 [facility] E2on 03-07-2025 Estradiol Level 14.00 pg/mL Normal [facility] Comment on above: Result Comment: No te - New Reference Range in effect 20 Adult Female E2 Reference Ranges: Follicular phase 19.5 - 144.2 pg/mL Midcycle 63.9 - 356.7 pg/mL Luteal phase 55.8 - 214.2 pg/mL Post menopausal 0 - 33.2 pg/mL Performed By: #### E 2 #### [address] [address] Shoulder min 2 Viewson 11-21 Shoulder min 2 Views [facility] [address] [place], [place] [address] Shoulder min 2 Views MR#: [id number] Acct: [id number] Name: VALORIE MEIER Rep #: [id number] : 1960 F 64 From: Gonzalez Mcadams MD PCP: Dr. Reba Molina MD Status: REG CLI Study: Shoulder min 2 Views Date of Exam: 11/21/24 Exam# [id number] Ordering Dr: Reba Molina [id number] STUDY: X-RAY - RIGHT SHOULDER REASON FOR EXAM: Female, 64 years old. pain with motion TECHNIQUE: 4 view(s) of the shoulder. COMPARISON: None. FINDINGS: There is moderate degenerative arthrosis of the glenohumeral articulation. There is degenerative arthrosis of the acromioclavicular joint without inferior osseous spur formation. Normal acromion. Normal humeral head and visualized proximal humerus. The soft tissue structures are unremarkable. Normal visualized pulmonary apex. RAD/Shoulder min 2 Views IMPRESSION: Moderate glenohumeral and acromioclavicular joint arthrosis. Electronically Signed: Gonzalez Mcadams MD at 17:54 EST , CC: Dr. 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 HISTORY: ORDERING SYSTEM PROVIDED HISTORY: Reason for Exam: BMI limits pelvic examination, patient states evaluation prior to starting hormone therapy, FINDINGS: The patient is unable to tolerate a transvaginal probe and declined the transvaginal study. Suprapubic images show adequate distension of the bladder but are limited by very large body habitus and a large amount of echogenic soft tissue anterior to the uterus and bladder. The uterus is normal in size 6.9 x 2.7 x 3.7 cm. Limited evaluation for focal lesions, no obvious mass. The endometrium is 4 mm double wall thickness on this limited study. The ovaries are not visualized due to limitations of the study. No pelvic free fluid is seen. IMPRESSION: Limited suprapubic studies showing normal uterus and normal endometrial thickness. Nonvisualized ovaries. The patient could not tolerate a transvaginal study. Interpreted by: Terrance Parsons MD Preliminary Report By: Terrance Parsons MD Electronically signed By Terrance Parsons MD Dictated Date: 10/17/2024 9:54:39 AM Prelim Date: 10/17/2024 9:56:59 AM Sign Date: 10/17/2024 9:56:59 AM Ordering Provider: ROSETTA Epperson [facility] MAMMOGRAM SCREENING BILAT ERAL W/TOMOon 10-16-2024 CT MAMMOGRAM SCREENING BILATERAL W/TIN ORIGINAL FROM: [place] [address] PROCEDURE FOR: VALORIE VazquezMartine MEIER [address] [place] [id number] Home: PID#: [id number] Exam#: [id number] : 1960 Age: 64 TO: ROSETTA OCHOA MD [address] [facility] [address] [place] [address] Fax: NO FAX EXAMINATION: SCREENING DIGITAL BILATERAL MAMMOGRAM WITH TOMOSYNTHESIS, 10/16/2024 3:26 pm TECHNIQUE: Screening mammography of the bilateral breasts was performed with tomosynthesis. 2D standard and 3D tomosynthesis combination imaging performed through both breasts in the MLO and CC projection. Computer aided detection was utilized in the interpretation of this exam. COMPARISON: 09/19/2022, 12/27/2018 HISTORY: Breast cancer screening. FINDINGS: BREAST DENSITY: There are scattered areas of fibroglandular density. There are no significant masses or calcifications. IMPRESSION: No mammographic evidence of malignancy. Continued screening with annual mammograms is recommended. [facility] risk calculations, generated with the history provided, report this patient's 10 year risk and lifetime risk for developing breast cancer at 4.1% and 9.1%, respectively. Based on this assessment tool, if the patient's calculated lifetime risk is below 20%, then the patient is considered at average risk for developing breast cancer. If the patient's calculated lifetime risk is at or above 20%, then the patient is considered high risk for developing breast cancer and may be a candidate for supplemental breast MRI screening in addition to annual mammographic screening per the [employer]. BIRADS: BI-RADS: 1: Negative RECALL: 1 year screening RECALL TYPE: mammo LETTER SENT: Normal BI-RADS 1 and 2 Interpreted by: Reji Zhang MD Preliminary Report By: Reji Zhang MD Electronically signed By Reji Zhang MD Dictated Date: 10/16/2024 10:25:48 PM Prelim Date: 10/16/2024 10:28:30 PM Sign Date: 10/16/2024 10:28:30 PM Ordering Provider: ROSETTA OCHOA copy to: REBA MOLINA MD, ph: [phone], fax: [phone] Water Project Manager: JERALD TOVAR RT(R)(M)(CT) letter sent: Normal BI-RADS 1 and 2 Mammogram BI-RADS: 1 Negative Normal [facility] Urine Cultureon 08-22-2024 [facility] Presumptive E. coli Tranquillity Count 11,000-25,000 Presumptive E. coli: REACTION Ampicillin Islt DENYS <=2 S Ampicillin+Sulbac Islt DENYS <=2 S ceFAZolin Islt DENYS <=4 S Cefepime Islt DENYS <=0.12 S cefTRIAXone Islt DENYS <=0.25 S Ciprofloxacin Islt DENYS <=0.25 S Ertapenem Islt DENYS <=0.12 S B-Lactamase Extended Susc Islt NEG Gentamicin Islt DENYS <=1 S Imipenem Islt DENYS <=0.25 S levoFLOXacin Islt DENYS <=0.12 S Nitrofurantoin Islt DENYS <=16 S Pip+Tazo Islt DENYS <=4 S Tobramycin Islt DENYS <=1 S TMP SMX Islt DENYS <=20 S Normal [facility] Comment on above: Performed By: #### M 100.2200 #### [facility] [address] [place], [address] CNOVon 06-25-2024 CNOV Office Visit (ORMDNA) VALORIE MEIER ([id number]) 1960 F Date Time Provider Department 06/25/24 2:00 PM BRITT ROBB During your visit today, we recorded the following information about you: Britt Robb MD 07/24/2024 9:21 AM Signed Britt Robb MD Department of Orthopaedics Orthopaedics [address] [place] [address] Dept: [phone] June 25, 2024 CHIEF COMPLAINT: New and Knee Pain of the Left Knee and Left knee meniscus tear HPI Patient here for evaluation left knee pain. Patient states in December she hired a personal lines underwriter and had her press 190 pounds and felt a pop in her knee. [place] like knifes going through her knee. She went to her PCP and thought it was her back. She had done PT and made her knee pain worse. Seen her chiropractor and ordered an MRI that was done at [facility] in [place] on 04/11/24. Patient hand carried a copy of the MRI. She had x-rays also done at [facility]. She was unable to get a copy of those. Patient states her pain is in the posterior aspect of her knee. Has been wearing an OTC knee sleeve and feels it helps. She has acupuncture. She is homopathic tincture for the pain ahd has helped. She has been icing and having chiropractic treatments that help as well. Patient had a cortisone injection done on 05/02/24 and helpe minimal. 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 Likely a combination of the two issues. Possibly a moses's cyst. She does have some mild/moderate lateral and PF knee OA, although her MRI images are not of great quality. Her subtalar fusion likely doesn't help the situation either. FOLLOW UP INSTRUCTIONS: She would like to try some NSAIDs and continue her light therapy. OBJECTIVE: Ms. Valorie Meier is a pleasant 64 year old in no apparent distress. Gen:There were no vitals taken for this visit. nl development, obese, no deformities ENT: Normocephalic, normal hearing, moist mucosa CV: Pulses:DP/PT= 2+ and symmetric, capillary refill < 2 secs, no peripheral edema/varicosities Skin: no rash, bruising or lesions. Good turgor. Psych: cooperative and appropriate, alert and oriented x 3, good mood and affect. Musculoskeletal: Patient walks with antalgia, normal station. Hip motion without pain. Knee with mild effusion. Some fullness in the popliteal space. Patella tracks normally. There is mild patellar crepitance. No pain along the medial or lateral facets. Range of motion 0-125. No medial with positive lateral joint line pain on palpation. Ligamentous exam stable on varus and valgus stress testing at 0 and 30 degrees. With some mild lateral joint widening consistent with some ligamentous laxity with her slight valgus alignment. Extremity is warm and well perfused. Sensation is grossly intact to light touch, subjectively. IMAGIN views of the knee and an MRI suggest tricompartmental OA, worse at the PF and lateral compartments. Supporting Subjective Information Below: Past Medical History: PAST MEDICAL HISTORY Diagnosis Date Adrenal adenoma 01/23/[address] scan 04/2013 unchanged from 2005 DIVERTICULITIS SIGMOID-NO HEMORRHAGE 01/13/2006 Dysthymic disorder Depression (non-psychotic) Encounter for screening for malignant neoplasm of intestinal tract 04/22/2016 Hallux valgus (acquired) 07/03/2012 Obstructive sleep apnea Other hammer toe (acquired) 08/11/2011 Snoring Unspecified asthma(493.90) Unspecified essential hypertension Past Surgical History: PAST SURGICAL HISTORY Procedure Laterality Date DELIVERY ONLY COLONOSCOPY FLX DX W/COLLJ SPEC WHEN PFRMD 02/10/2006 diverticulitis LAPAROSCOPIC CHOLECYSTECTOMY 11/27/1994 LASIK 11/27/1994 LASIK eye surgery PAST SURGICAL HISTORY OF 11/27/1979 Tonsilectomy PAST SURGICAL HISTORY OF 1977,1978 2 ankle surgeries- ligament and tendon repair- right PAST SURGICAL HISTORY OF 11/27/1995 BL feet hammertoe surgery PAST SURGICAL HISTORY OF Right [facility] arthroplasty right thumb PAST SURGICAL HISTORY OF Right Right ankle fusion PAST SURGICAL HISTORY OF Left 2021 Left shouder reversal PRCTECT COMPL W/STOT/TOT 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 Normal [facility] Basophil percentageOrdered B y: Reba Molina on 03-28-2024 Basophil percentage < 10.0 IU/mL <15 [facility] No Panel InformationOrdered By: Reba Molina on 03-28-2024 Anti-Nuclear Antibody Screen Negative Negative [facility] Comment on above: Performed at: [address] [id number] Director: Ken Villegas PhD, Phone: [phone] Serum cyclic citrullinated p eptide IgG antibody assay (units/volume)Ordered By: Reba Molina on 03-28-2024 Cyclic citrullinated peptide IgG Qn 3 units 0-19 [facility] Comment on above: Negative <20 Weak po sitive 20 - 39 Moderate positive 40 - 59 Strong positive >59Performed at: [facility] - [facility] [address] [place], [place] [id number] Director: Ken Villegas PhD, Phone: [phone] 24 hour urine free cortisol measurement (mass/time)Ordered By: Derek Molina on 05-25-2023 Cortisol Free (24H U) [Mass/Time] 14 ug/24 hr 6-42 [facility] Comment on above: Performed at: BN - [address] [id number] Director: Gina Linares MD, Phone: [phone] Quantitative urine free herbert isol measurement (mass/volume)Ordered By: Derek Molina on 05-25-2023 Cortisol Free (U) [Mass/Vol] 7 ug/L Undefined [facility] Basophil percentageOrdered B y: Derek Molina on 05-23-2023 Chloride [Moles/Vol] 104 mmol/L 98-107 [facility] Cholesterol [Mass/Vol] 208 mg/dL <200 [facility] Comment on above: <200 mg/dL Desirable 200-240 mg/dL Borderline >240 mg/dL High Risk Glucose [Mass/Vol] 103 mg/dL 74-106 [facility] Comment on above: Fasting Glucose resu lt from 100 to 125 mg/dL suggests IMPAIRED HOMEOSTASIS per A.D.A. criteria. Potassium [Moles/Vol] 4.2 mmol/L 3.5-5.1 [facility] Sodium [Moles/Vol] 138 mmol/L 136-145 [facility] Triglyceride [Mass/Vol] 97 mg/dL <199 [facility] Comment on above: The drugs N-Acetylcy steine and Metamizole may falsely depress this assay.Serum Triglycerides Reference Interval Normal <150 mg/dL Borderline high 150 - 199 mg/dL High 200 - 499 mg/dL Very High > or = 500 mg/dL Erythrocyte sedimentation ra teOrdered By: Derek Molina on 05-23-2023 ESR (Bld) [Velocity] 11 mm/h 0-30 [facility] - Chemistry and C hemistry - challengeOrdered By: Derek Molina on 05-23-2023 CO2 [Moles/Vol] 26.0 mmol/L 21.0-32.0 [facility] Urea nitrogen/Creatinine [Mass ratio] 17.1 mg/mg 10-20 [facility] No Panel InformationOrdered By: Derek Molina on 05-23-2023 Estimated GFR (MDRD) Amer 84 mL/min >60 [facility] Comment on above: GFR Calc Estimated GFR (MDRD) Non-Af Amer 70 mL/min >60 [facility] Comment on above: Non- GFR Calc Serum or plasma calcium blanka urement (mass/volume)Ordered By: Derek Molina on 05-23-2023 Calcium [Mass/Vol] 9.3 mg/dL 8.5-10.1 [facility] Serum or plasma cholesterol in HDL measurement (mass/volume)Ordered By: Derek Molina on 05-23-2023 Cholesterol in HDL [Mass/Vol] 66 mg/dL >40 [facility] Comment on above: The drugs N-Acetylcy steine and Metamizole may falsely depress this assay. Reference Range HDL <40 mg/dL Low HDL Cholesterol HDL >or= 60 mg/dL High HDL Cholesterol Serum or plasma cholesterol in VLDL measurement (mass/volume)Ordered By: Derek Molina on 05-23-2023 Cholesterol in VLDL [Mass/Vol] 19 mg/dL 5-40 [facility] Serum or plasma cortisol josie surement (mass/volume)Ordered By: Derek Molina on 05-23-2023 Cortisol [Mass/Vol] 6.30 ug/dL 3.44-22.45 [facility] Comment on above: Adult (AM) 5.27 - 22 .45 ug/dL Adult (PM) 3.44 - 16.76 ug/dLPlease note revised CORTISOL reference range effective 2020. Serum or plasma creatinine m easurement (mass/volume)Ordered By: Derek Molina on 05-23-2023 Creatinine [Mass/Vol] 0.88 mg/dL 0.55-1.02 [facility] Comment on above: The validity of the calculated GFR & GFRAA in patients over 70 years has not been determined. Clinical correlation is essential. Serum or plasma low density lipoprotein (LDL) cholesterol measurement (mass/volume)Ordered By: Derek Molina on 05-23-2023 Cholesterol in LDL [Mass/Vol] 123 mg/dL 0-130 [facility] Serum or plasma urea nitroge n measurement (mass/volume)Ordered By: Derek Molina on 05-23-2023 Urea nitrogen [Mass/Vol] 15 mg/dL 7-18 [facility] Thin prep Papanicolaou smear with manual screeningOrdered By: Derek Molina on 05-23-2023 Thin prep Papanicolaou smear with manual screening 8 5-15 [facility] Whole blood hemoglobin A1c/t otal hemoglobin ratio (mass fraction)Ordered By: Derek Molina on 05-23-2023 HbA1c (Bld) [Mass fraction] 5.2 % 3.8-5.6 [facility] Comment on above: Normal < 5.7 % Predi abetic 5.7 - 6.4 % Diabetic >or= 6.5 % Please note range changes. [facility] Reporton 2021 [facility] Report . Pathology Reports Accession: Collected Date/Time: Received Date/Time: Pathologist: [id number] 09/19/2022 10:25 EDT 09/19/2022 18:00 EDT [facility] Report SPECIMEN: Specimen Description: Liquid Prep w/ HPV Specimen: Cervical/Endocervica l Screening or Diagnostic: Screening RELEVANT HISTORY: LMP: NOT GIVEN Post Menopausal: Yes [id number] SPECIMEN ADEQUACY: SATISFACTORY FOR EVALUATION Endocervical/Transfo rmational zone component absent/insufficient INTERPRETATION/RESUL TS: NEGATIVE FOR INTRAEPITHELIAL LESION OR MALIGNANCY HIGH RISK HPV TESTING: Event Code Result HPV Interp See Interp HPVN HPV Interp Text: High Risk HPV Typing: NEGATIVE HPV types 16, 18, 31, 33, 35, 39, 45, 51, 52, 56, 58, 59, 66 and 68 DNA were undetectable or below the pre-set threshold. The sunday High-Risk HPV DNA Test is not intended for use as a screening device for Pap normal women under age 30 and is not intended to substitute for regular Pap screening. The sunday High-Risk HPV DNA Test is designed to augment existing methods for the detection of cervical disease and should be used in conjunction with clinical information derived from other diagnostic and screening tests, physical examinations and full medical history in accordance with appropriate patient management procedures. NOTE: A negative result does not preclude the presence of HPV infection because results depend on adequate specimen collection, absence of inhibitors and sufficient DNA to be detected. As of: 09/27/22 13:11 EDT COMMENT: This Pap Test was successfully processed and evaluated with the assistance of the [employer] ThinPrep Test Imaging System. Pathology Reports Accession: Collected Date/Time: Received Date/Time: Pathologist: [id number] 09/19/2022 10:25 EDT 09/19/2022 18:00 EDT Electronically Signed by Pathology report verified by [facility] Screened by: GL Electronically signed by Dalia Rabago Sign-Out Date: 09/27/2022 13:11 Performing Lab: [facility], [address] [place] [address] Pathology Dept Disclaimer The Pap test is a screening test for cervical cancer. As evidenced by published data, it is subject to both inherent false negative and false positive results. Your patient's results should be interpreted in context with pertinent clinical history including gynecological examination. Normal [facility] [place] HPVon 09-27-2022 HPV Interp Normal See Inter HPVN [facility] [place] Comment on above: Order Comment: Order placed by AP_HPV_ORDER rule from [id number] Result Comment: High Risk HPV Typing: NEGATIVE HPV types 16, 18, 31, 33, 35, 39, 45, 51, 52, 56, 58, 59, 66 and 68 DNA were undetectable or below the pre-set threshold. The sunday High-Risk HPV DNA Test is not intended for use as a screening device for Pap normal women under age 30 and is not intended to substitute for regular Pap screening. The sunday High-Risk HPV DNA Test is designed to augment existing methods for the detection of cervical disease and should be used in conjunction with clinical information derived from other diagnostic and screening tests, physical examinations and full medical history in accordance with appropriate patient management procedures. NOTE: A negative result does not preclude the presence of HPV infection because results depend on adequate specimen collection, absence of inhibitors and sufficient DNA to be detected. See Interp HPVN Performed By: #### H PV #### [facility] [address] [place] [address] HPV Source Cervix Normal [facility] [place] Comment on above: Order Comment: Order placed by AP_HPV_ORDER rule from [id number] Performed By: #### H PV #### [address] [address] [place] MAMMOGRAM SCREENING BILAT ERAL W/TOMOon 09-19-2022 [place] MAMMOGRAM SCREENING BILATERAL W/TIN ORIGINAL FROM: [facility] [address] [place], [place] [address] PROCEDURE FOR: VALORIE MEIER [address] [place] [address] Home: PID#: [id number] Exam#: [id number] : 1960 Age: 62 TO: DANIEL WAYNE APRN WEED SPRAYER [address] [place] [address] Fax: NO FAX EXAMINATION: SCREENING DIGITAL BILATERAL MAMMOGRAM WITH TOMOSYNTHESIS, 09/19/2022 11:27 am TECHNIQUE: Screening mammography of the bilateral breasts was performed with tomosynthesis. 2D standard and 3D tomosynthesis combination imaging performed through both breasts in the MLO and CC projection. Computer aided detection was utilized in the interpretation of this exam. COMPARISON: Prior mammography dated 12/27/2018, 12/12/2016. HISTORY: Breast cancer screening. FINDINGS: BREAST DENSITY: Scattered fibroglandular tissue. There are no significant masses or calcifications. There has been no significant interval change. IMPRESSION: No mammographic evidence of malignancy. Continued screening with annual mammograms is recommended. BIRADS: MAMMOGRAM BI-RADS: 1: Negative RECALL: 1 year screening RECALL TYPE: mammo LETTER SENT: Normal BI-RADS 1 and 2 Interpreted by: Neal Tipton MD Preliminary Report By: Neal Tipton MD Electronically signed By Neal Tipton MD Dictated Date: 09/23/2022 4:22:24 PM Prelim Date: 09/23/2022 4:26:34 PM Sign Date: 09/23/2022 4:26:34 PM Ordering Provider: DANIEL WAYNE copy to: REBA MOLINA MD, ph: [phone], fax: [phone] Water Project Manager: CELIO HANSON RT (R) (M) (CT) letter sent: Normal BI-RADS 1 and 2 Mammogram BI-RADS: 1 Negative Normal [facility] ([place]) CT SHOULDER W/O CONTRAST LEF Ton 11-18-2021 CT SHOULDER W/O CONTRAST LEFT ORIGINAL EXAMINATION: CT OF THE LEFT SHOULDER WITHOUT CONTRAST 11/18/2021 8:33 am TECHNIQUE: CT of the left shoulder was performed without the administration of intravenous contrast. Multiplanar reformatted images are provided for review. Dose modulation, iterative reconstruction, and/or weight based adjustment of the mA/kV was utilized to reduce the radiation dose to as low as reasonably achievable. COMPARISON: None. HISTORY ORDERING SYSTEM PROVIDED HISTORY: Reason for Exam: PRIMARY osteoarthritis L SHOULDER Patient reports left shoulder pain FINDINGS: Bones: Osseous mineralization is slightly decreased. No evidence of avascular necrosis. subcentimeter sclerotic lesion at posterior rib 6 likely reflects a bone island. Soft Tissue: No gross muscle atrophy. No lymphadenopathy. Main pulmonary artery is enlarged. Joint: Humeral head sits slightly anteriorly in the glenoid and there is severe joint space narrowing anteriorly. Prominent marginal spurring at the inferior humeral head and at the glenoid. Humeral head and acetabular subchondral cysts. 1 cm ossification superior to the glenohumeral joint space. Mild to moderate degenerative changes seen of the acromioclavicular joint. IMPRESSION: Severe degenerative changes at the glenohumeral joint. Mild to moderate degenerative changes seen of the acromioclavicular joint There is likely a loose body in the superior aspect of the right glenohumeral joint space Incidental note of enlarged main pulmonary artery, possibly indicating pulmonary arterial hypertension. I have personally reviewed the images of this examination and agree with the resident's findings and interpretation. Interpreted by: Ariel Cook MD Preliminary Report By: Pippa Wiley Electronically signed By Ariel Cook MD Dictated Date: 11/18/2021 9:22:21 AM Prelim Date: 11/18/2021 10:21:48 AM Sign Date: 11/18/2021 10:21:48 AM Ordering Provider: MALI Epperson [facility] ([place]) Encounters Encounter Date Encounter Type Care Provider Facility Start: 07-08-2025 ambulatory Reba Ross lity:[facility] Start: 07-03-2025 End: 07-03-2025 ambulatory ROSETTA OCHOA MD Facility[facility] Start: 07-03-2025 End: 07-03-2025 Patient encounter procedure ROSETTA OCHOA MD [facility] Start: 06-17-2025 End: 06-17-[address] Reba Molina MD Work Phone: -Laboratory [facility] Start: 06-17-2025 End: 06-17-[address] Reba Molina MD -Laboratory [facility] Start: 06-17-2025 End: 06-17-2025 ambulatory Reba Molina Facility:[facility] Start: 03-07-2025 End: 03-07-2025 ambulatory ROSETTA OCHOA MD Facility[facility] Start: 11-21-2024 End: 11-21-2024 ambulatory Reba Molina Facility:[facility] Start: 10-16-2024 End: 10-16-2024 ambulatory ROSETTA OCHOA MD Facility:[facility] Start: 10-16-2024 End: 10-16-2024 Patient encounter procedure ROSETTA OCHOA MD [facility] Start: 09-19-2024 ambulatory DANIEL WAYNE APRN-WEED SPRAYER Facility:[facility] Start: 09-19-2024 Encounter for gynecological examination (general) (routine) without abnormal findings DANIEL FOWLERWEED SPRAYER Facility:[facility] Start: 08-20-2024 End: 08-20-2024 ambulatory Reba Molina Facility:[facility] Start: 06-25-2024 End: 06-25-2024 ambulatory BRITT ROBB Facility:[facility] Start: 06-25-2024 End: 06-25-2024 Patient encounter procedure Britt Robb MD Work Phone: Orthopaedics Comment on above: Acute pain of left k nee (Primary Dx); Radiculopathy, lumbar region Start: 03-28-2024 End: 03-28-[address] Reba Molina Work Phone: [facility] Work Phone: Start: 03-28-2024 End: 03-28-[address] Reba Molina Work Phone: [facility] Start: 03-05-2024 End: 03-05-[address] Reba Molina Work Phone: [facility] Work Phone: Start: 03-05-2024 End: 03-05-[address] Reba Molina Work Phone: [facility] Work Phone: Start: 02-15-2024 Non-patient / Non-visit Dr. Maribel Molina Work Phone: [facility] Start: 02-15-2024 End: 02-15-[address] Derek Molina Work Phone: [facility] Work Phone: Start: 02-15-2024 End: 02-15-[address] Derek Molina Work Phone: [facility]Cardiovascula [facility] Services Work Phone: Start: 12-19-2023 End: 12-19-[address] Derek Molina Work Phone: [facility]-Outpatient Bone Densitometry Work Phone: Start: 05-25-2023 End: 05-25-2023 ambulatory [facility] Work Phone: Start: 05-25-2023 End: 05-25-2023 Patient encounter procedure [facility]-Laboratory, Specimen Work Phone: Start: 05-23-2023 End: 05-23-2023 ambulatory [facility] Work Phone: Start: 05-23-2023 End: 05-23-2023 Patient encounter procedure [facility]-Laboratory, [facility] Start: 09-19-2022 End: 09-24-2022 ambulatory DANIEL WAYNE APRN-WEED SPRAYER Facility:[facility] Start: 09-19-2022 End: 09-24-2022 Encounter for gynecological examination (general) (routine) without abnormal findings DANIEL WAYNE APRN-WEED SPRAYER Facility:[facility] Start: 09-19-2022 End: 09-23-2022 Outreach Lab DANIEL WAYNE APRN-WEED SPRAYER [facility] Start: 09-19-2022 End: 09-20-2022 ambulatory DANIEL WAYNE APRN-WEED SPRAYER Facility:[facility] Start: 09-19-2022 End: 09-19-2022 Patient encounter procedure DANIEL BALDERRAMA [facility] Start: 05-31-2022 End: 05-31-2022 Patient encounter [facility] Start: 11-18-2021 End: 11-19-[address] MALI GREY DO Facility:[facility] Start: 11-18-2021 End: 11-18-[address] MALI GREY DO [facility] Procedures Date Procedure Procedure Detail Performing Clinician Start: 03-05-2024 X-ray of lumbosacral spine Dr. Reba Molina Work Phone: Start: 12-19-2023 Dual energy X-ray absorptiometry Dr. Derek Mloina Work Phone: Start: 05-31-2022 Radiography of ankle Start: 05-31-2022 Plain X-ray of tibia and fibula Start: 05-16-2016 Lipid 1996 panel - S mickie or Plasma Britt Robb MD Work Phone: Start: 05-13-2016 Colonoscopy Britt saucedo MD Work Phone: section DANIEL MATA SON [employer]TER [employer] PRESSER-WEED SPRAYER Cholecystectomy DANIEL JACOB ON [employer]-WEED SPRAYER Excision of colon DANIEL TIM [employer]ER-WEED SPRAYER Injury of ankle (disorder) Booker WAYNE [employer]ER-WEED SPRAYER Comment on above: Unfused then Fused Shoulder reverse/sta ndard adaptor prosthesis (physical object) DANIEL WAYNE [employer]-WEED SPRAYER Thumb joint stabilit y (observable entity) DANIEL WAYNE [employer]-WEED SPRAYER Plan of Treatment Date Care Activity Detail Author Start: 10-07-2030 Urine microalbumin profile DTaP,Tdap,Td Vaccine (3 - Td or Tdap) [facility] Start: 05-13-2026 Screening for malign ant neoplasm of colon [facility] Start: 07-28-2024 Influenza vaccination Influenza Vacc ine (#1) [facility] Start: 07-28-2023 Covid-19 Vaccine ( season) Covid-19 Vaccine () [facility] Start: 05-16-2021 Lipid panel Lipid Screening [facility] Start: 04-24-2021 Screening for malign ant neoplasm of cervix Cervical Cancer Screening [facility] Start: 2021 RSV Vaccine (1 - 1-d ose 60+ series) RSV Vaccine (1 - 1-dose 60+ series) [facility] Start: 12-12-2017 Screening for malign ant neoplasm of breast Mammogram Screening [facility] Start: 01-31-2017 Diabetes Screening Diabetes Screenin g [facility] Start: 01-02-2014 Shingrix Vaccine (2 of 3) Guaman grix Vaccine (2 of 3) [facility] Start: 2006 Screening for malign ant neoplasm of colon [facility] Start: 1979 Annual PCP Team Technical Support Coordinator martir Disease Visit Annual PCP Team Chronic Disease Visit [facility] Start: 1979 Anxiety Screening Anxiety Screening [facility] Start: 1979 BP Controlled (<130/80) BP Con trolled (<130/80) [facility] Start: 1979 Depression Screening Depression Scre ening [facility] Start: 1979 Hepatitis C screening Hepatitis C Sc reening [facility] Start: 1979 HIV screening HIV Screening [facility] Start: 1979 Spirometry Spirometry [facility] Cortisol Free [Mass/volume] in 24 hour Urine [facility] Cortisol Free [Mass/volume] in Urine [facility] Immunizations Immunization Date Immunization Notes Care Provider Aden hearn 08-20-2021 SARS-CoV-2 mRNA (tozinameran) vaccine DANIEL WAYNE [employer]-WEED SPRAYER [facility] Comment on above: Result Comment: 2021: [id number] 07-30-2021 SARS-CoV-2 mRNA (tozinameran) vaccine DANIEL WAYNE [employer]-WEED SPR[employer]ER [facility] Comment on above: Result Comment: 2021: [id number] 10-07-2020 tetanus toxoid, redu magdalena diphtheria toxoid, and acellular pertussis vaccine, adsorbed DANIEL WAYNE [employer]-WE[employer]ER [facility] 11-22-2016 pneumococcal polysaccharide vaccine, 23 valent DANIEL WAYNE [employer]-WEED SPR[employer]ER [facility] 11-22-2016 tetanus toxoid, redu magdalena diphtheria toxoid, and acellular pertussis vaccine, adsorbed DANIEL WAYNE [employer]-WE[employer] [facility] 11-22-2016 influenza virus vacc ine, unspecified formulation Britt Robb MD Work Phone: [facility] 11-07-2013 zoster vaccine, live Britt Robb MD Work Phone: [facility] 11-28-2006 tetanus and diphther ia toxoids, adsorbed, preservative free, for adult use (2 Lf of tetanus toxoid and 2 Lf of diphtheria toxoid) Britt Robb MD Work Phone: [facility] Work Phone: Payers Date Payer Category Payer Private Health Insurance [id number] 2024 Self-pay [id number] 2019 Unknown MMO MMO [employer]PER[employer] PPO [id number] 2019-Present [phone] [address] [place] [address] PPO [id number] 2014 Unknown [id number] 1960 Unknown [id number] 1960 Unknown [id number] 1960 Unknown [id number] 1960 Unknown [id number] 1960 Unknown [id number] 1960 Unknown [id number] 1960 Unknown [id number] 27 Unknown [id number] 63 Unknown [id number] 63 Unknown [id number] 63 Unknown [id number] 63 Social History Date Type Detail Facility Unknown if ever smoked [facility] Start: 1960 Sex Assigned At Female A [facility] Start: 09-01-2011 End: 09-19-2022 Tobacco smoking status Never smoked tobacco (finding) [facility] Start: 09-01-2011 Tobacco use and exposure Smoke less tobacco non-user [facility] Start: 07-24-2024 Alcoholic beverage intake Current drinker of alcohol (finding) [facility] Start: 06-25-2024 End: 07-24-2024 History of Social function [facility] Start: 06-25-2024 End: 07-24-2024 Tobacco use panel [facility] Adult Depression Screening Assessment 0 [facility] Start: 10-26-2011 Alcohol Comment 1-3 times per month [facility] Start: 1960 Sex assigned at Not on file [facility] Tobacco smoking stat [facility] Unknown if ever smoked [facility] Work Phone: Sexual Orientation [facility]urt[facility] Obed ospialejandro [facility] Start: 01-17-2019 Sex Female (finding) [facility] Medical Equipment Procedure Code Equipment Code Equipment Origin al Text Equipment Identifier Dates Rzk-We-[id number] Implant - [id number] Start: 11-02-2011 Comment on above: Description: Asnis S crew 2.0 X 16 Wire Fix .045in 6in Krsh Ss - [id number] Start: 11-02-2011 Comment on above: Description: K-Wire Clinical Notes 09-19-2022 to 06-25-2024 Britt Robb MD - 06/25/2024 2:04 PM [facility] Note Date & Type Note Facility 06-25-2024 Note HNO ID: [id number] Author: BRITT ROBB MD Service: ? Author Type: Physician Type: Progress Notes Filed: 07/24/2024 09:21 Note Text: Britt Robb MD Department of Orthopaedics [facility] [address] [address] Dept: [phone] June 25, 2024 CHIEF COMPLAINT: New and Knee Pain of the Left Knee and Left knee meniscus tear HPI Patient here for evaluation left knee pain. Patient states in December she hired a personal lines underwriter and had her press 190 pounds and felt a pop in her knee. [place] like knifes going through her knee. She went to her PCP and thought it was her back. She had done PT and made her knee pain worse. Seen her chiropractor and ordered an MRI that was done at [facility] [place] on 04/11/24. Patient hand carried a copy of the MRI. She had x-rays also done at [facility]. She was unable to get a copy of those. Patient states her pain is in the posterior aspect of her knee. Has been wearing an OTC knee sleeve and feels it helps. She has acupuncture. She is homopathic tincture for the pain ahd has helped. She has been icing and having chiropractic treatments that help as well. Patient had a cortisone injection done on 05/02/24 and helpe minimal. 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 Likely a combination of the two issues. Possibly a moses's cyst. She does have some mild/moderate lateral and PF knee OA, although her MRI images are not of great quality. Her subtalar fusion likely doesn't help the situation either. FOLLOW UP INSTRUCTIONS: She would like to try some NSAIDs and continue her light therapy. OBJECTIVE: Ms. Valorie Meier is a pleasant 64 year old in no apparent distress. Gen:There were no vitals taken for this visit. nl development, obese, no deformities ENT: Normocephalic, normal hearing, moist mucosa CV: Pulses:DP/PT= 2+ and symmetric, capillary refill < 2 secs, no peripheral edema/varicosities Skin: no rash, bruising or lesions. Good turgor. Psych: cooperative and appropriate, alert and oriented x 3, good mood and affect. Musculoskeletal: Patient walks with antalgia, normal station. Hip motion without pain. Knee with mild effusion. Some fullness in the popliteal space. Patella tracks normally. There is mild patellar crepitance. No pain along the medial or lateral facets. Range of motion 0-125. No medial with positive lateral joint line pain on palpation. Ligamentous exam stable on varus and valgus stress testing at 0 and 30 degrees. With some mild lateral joint widening consistent with some ligamentous laxity with her slight valgus alignment. Extremity is warm and well perfused. Sensation is grossly intact to light touch, subjectively. IMAGIN views of the knee and an MRI suggest tricompartmental OA, worse at the PF and lateral compartments. Supporting Subjective Information Below: Past Medical History: PAST MEDICAL HISTORY Diagnosis Date Adrenal adenoma 01/23/[address] scan 04/2013 unchanged from 2005 DIVERTICULITIS SIGMOID-NO HEMORRHAGE 01/13/2006 Dysthymic disorder Depression (non-psychotic) Encounter for screening for malignant neoplasm of intestinal tract 04/22/2016 Hallux valgus (acquired) 07/03/2012 Obstructive sleep apnea Other hammer toe (acquired) 08/11/2011 Snoring Unspecified asthma(493.90) Unspecified essential hypertension Past Surgical History: PAST SURGICAL HISTORY Procedure Laterality Date DELIVERY ONLY COLONOSCOPY FLX DX W/COLLJ SPEC WHEN PFRMD 02/10/2006 diverticulitis LAPAROSCOPIC CHOLECYSTECTOMY 11/27/1994 LASIK 11/27/1994 LASIK eye surgery PAST SURGICAL HISTORY OF 11/27/1979 Tonsilectomy PAST SURGICAL HISTORY OF 1977,1978 2 ankle surgeries- ligament and tendon repair- right PAST SURGICAL HISTORY OF 11/27/1995 BL feet hammertoe surgery PAST SURGICAL HISTORY OF Right CMC arthroplasty right thumb PAST SURGICAL HISTORY OF Right Right ankle fusion PAST SURGICAL HISTORY OF Left 2021 Left shouder reversal PRCTECT COMPL W/STOT/TOT 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 BXS [id number] RPR INGUN HERNIA SLIDING ANY AGE 0111/27/1995 right SIGMOIDOSCOPY FLX DX W/COLLJ SPEC BR/WA IF PFRMD 10/27/2007 Patent colocolostomy anastomosis Family History: FAMILY HISTORY Problem Relation Age of Onset Hypertension Mother Arthritis Mother rheumatoid Kidney Disease Mother Osteoporosis Mother Stroke Mother Heart Failure Mother Heart Father Hypertension Father Alcohol/Drug Father Hypertension Maternal Grandmother Heart Failure Maternal Grandmother Diabetes Maternal Grandfather Heart Failure Maternal Uncle Social History: Social History Tobacco Use Smoking status: Never Smokeless tobacco: Never Vaping Use Vaping Use: Never used Substance Use Topics Alcohol use: Yes Comment: 1-3 times per month Drug use: No Medic (more content not included)... [facility] 06-25-2024 History of Present illness Narrative Britt Robb MD Department of Orthopaedics Orthopa[facility] [address] [address] Dept: [phone] June 25, 2024 CHIEF COMPLAINT: New and Knee Pain of the Left Knee and Left knee meniscus tear HPI Patient here for evaluation left knee pain. Patient states in December she hired a personal lines underwriter and had her press 190 pounds and felt a pop in her knee. [place] like knifes going through her knee. She went to her PCP and thought it was her back. She had done PT and made her knee pain worse. Seen her chiropractor and ordered an MRI that was done at [facility] in [place] on 04/11/24. Patient hand carried a copy of the MRI. She had x-rays also done at [facility]. She was unable to get a copy of those. Patient states her pain is in the posterior aspect of her knee. Has been wearing an OTC knee sleeve and feels it helps. She has acupuncture. She is homopathic tincture for the pain ahd has helped. She has been icing and having chiropractic treatments that help as well. Patient had a cortisone injection done on 05/02/24 and helpe minimal. 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 Likely a combination of the two issues. Possibly a moses's cyst. She does have some mild/moderate lateral and PF knee OA, although her MRI images are not of great quality. Her subtalar fusion likely doesn't help the situation either. FOLLOW UP INSTRUCTIONS: She would like to try some NSAIDs and continue her light therapy. OBJECTIVE: Ms. Valorie Meier is a pleasant 64 year old in no apparent distress. Gen:There were no vitals taken for this visit. nl development, obese, no deformities ENT: Normocephalic, normal hearing, moist mucosa CV: Pulses:DP/PT= 2+ and symmetric, capillary refill < 2 secs, no peripheral edema/varicosities Skin: no rash, bruising or lesions. Good turgor. Psych: cooperative and appropriate, alert and oriented x 3, good mood and affect. Musculoskeletal: Patient walks with antalgia, normal station. Hip motion without pain. Knee with mild effusion. Some fullness in the popliteal space. Patella tracks normally. There is mild patellar crepitance. No pain along the medial or lateral facets. Range of motion 0-125. No medial with positive lateral joint line pain on palpation. Ligamentous exam stable on varus and valgus stress testing at 0 and 30 degrees. With some mild lateral joint widening consistent with some ligamentous laxity with her slight valgus alignment. Extremity is warm and well perfused. Sensation is grossly intact to light touch, subjectively. IMAGIN views of the knee and an MRI suggest tricompartmental OA, worse at the PF and lateral compartments. Supporting Subjective Information Below: Past Medical History: PAST MEDICAL HISTORY Diagnosis Date Adrenal adenoma 01/23/[address] scan 04/2013 unchanged from 2005 DIVERTICULITIS SIGMOID-NO HEMORRHAGE 01/13/2006 Dysthymic disorder Depression (non-psychotic) Encounter for screening for malignant neoplasm of intestinal tract 04/22/2016 Hallux valgus (acquired) 07/03/2012 Obstructive sleep apnea Other hammer toe (acquired) 08/11/2011 Snoring Unspecified asthma(493.90) Unspecified essential hypertension Past Surgical History: PAST SURGICAL HISTORY Procedure Laterality Date DELIVERY ONLY COLONOSCOPY FLX DX W/COLLJ SPEC WHEN PFRMD 02/10/2006 diverticulitis LAPAROSCOPIC CHOLECYSTECTOMY 11/27/1994 LASIK 11/27/1994 LASIK eye surgery PAST SURGICAL HISTORY OF 11/27/1979 Tonsilectomy PAST SURGICAL HISTORY OF 1977,1978 2 ankle surgeries- ligament and tendon repair- right PAST SURGICAL HISTORY OF 11/27/1995 BL feet hammertoe surgery PAST SURGICAL HISTORY OF Right CMC arthroplasty right thumb PAST SURGICAL HISTORY OF Right Right ankle fusion PAST SURGICAL HISTORY OF Left 2021 Left shouder reversal PRCTECT COMPL W/STOT/TOT 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 [id number] RPR INGUN HERNIA SLIDING ANY AGE 0111/27/1995 right SIGMOIDOSCOPY FLX DX W/COLLJ SPEC BR/WA IF PFRMD 10/27/2007 Patent colocolostomy anastomosis Family History: FAMILY HISTORY Problem Relation Age of Onset Hypertension Mother Arthritis Mother rheumatoid Kidney Disease Mother Osteoporosis Mother Stroke Mother Heart Failure Mother Heart Father Hypertension Father Alcohol/Drug Father Hypertension Maternal Grandmother Heart Failure Maternal Grandmother Diabetes Maternal Grandfather Heart Failure Maternal Uncle Social History: Social History Tobacco Use Smoking status: Never Smokeless tobacco: Never Vaping Use Vaping Use: Never used Substance Use Topics Alcohol use: Yes Comment: 1-3 times per month Drug use: No Medications: Current Outpatient Medications Medication Sig albuterol HFA (VENTOLIN HFA) 90 mcg/actuation inhaler Inhale 2 Puffs as instructed every 4 hours as needed for Wheezing/Shortness of Breath. COMPOUNDED PRESCRIPTION CPAP MASK AND TUBING AND FILTER, AND HEAD GEAR DX G47.33 hydroCHLOROthiazide (HYDRODIURIL, ESIDRIX) 25 mg tablet Take 1 tablet by mouth once daily. TURMERIC ORAL Take by mouth. Takes 1 tablet daily scopolamine (TRANSDERM-SCOP) 1.5 mg (1 mg over 3 days) Apply 1 Patch as directed every 72 hours. Apply patch to skin behind ear 4hrs prior to travel. (Patient not taking: Reported on 06/25/2024) fluticasone (FLONASE) 50 mcg/actuation nasal spray Use 2 Sprays in each nostril once daily. Rinse mouth after use. (Patient not taking: Reported on 06/25/2024) meloxicam (MOBIC) 15 mg tablet Take 1 tablet by mouth once daily. (Patient not taking: Reported on 06/25/2024) B INFANTIS/B ANI/B DESTINY/B BIFID (PROBIOTIC 4X ORAL) Take by mouth. No current facility-administered medications for this visit. Allergies: Erythromycin, Lexapro [Escitalopram Oxalate], and Zoloft [Sertraline Hcl] ROS: General (negative for fatigue, malaise, weight loss/gain) HEENT (negative for headache, earache, recent vision changes, sinus pain, sore throat) Respiratory (no recent shortness of breath, hemoptysis) CV (negative for chest tightness, palpitations) Musculoskeletal (see HPI) Psych (no depression, anxiety) Britt Robb MD documented in this encounter [facility] 02-21-2024 Evaluation + Plan note Future Scheduled TestsMA Mammo Screening Bilateral w/ Tin 02/21/24BD Bone Density DEXA Axial Skeleton Adult (21 yrs or older) 09/24/24 [facility] 09-19-2022 Evaluation + Plan note Future Scheduled TestsPathology Manager Garden Request 09/19/22 [facility] 09-19-2022 Evaluation + Plan note Diagnostic Tests PendingHPV Screen, DNA Probe 09/19/22 Future Scheduled TestsPathology Manager Garden Request 09/19/22 [facility] Evaluation + Plan note No data available for this section [facility] Evaluation + Plan note Future Appointments Appointment Date:07/07/2025 08:30:00 AM Scheduled Provider:ROSETTA OCHOA MD Location:[facility] Appointment Type:[facility] Future Scheduled TestsBD Bone Density DEXA Axial Skeleton Adult (21 yrs or older) 09/24/24 [facility] Evaluation note No assessment inform ation available [facility] Work Phone: Evaluation note Diagnosis Routine medical exam- Primary Routine general medical examination at a health care facility MARCELINO on CPAP Obstructive sleep apnea (adult) (pediatric) Bursitis Other bursitis disorders Hirsutism Weight gain Abnormal weight gain Acute pain of left knee- Primary Radiculopathy, lumbar region Thoracic or lumbosacral neuritis or radiculitis, unspecified [facility] No data available for this section [facility] Progress note No data available for this section [facility] Reason for referral (narrative)No reason for referral information available[facility] Work Phone: Chief Complaint and Reason for Visit Chief Complaint SPRAIN AND CONTUSION Chief Complaint POST CHELY LEFT LEG PAIN Summary Purpose Family History No Family History Records FoundNo Family History Records Found No data available for this section No data available for this section No Family History Records FoundNo Family History Records Found Advance Directives No Advanced Directives Records FoundNo Advanced Directives Records FoundNo Advanced Directives Records FoundNo Advanced Directives Records Found Additional Source Comments Goals (unrecognized section and content) Goals may be documented in a n alternate section Care Team (unrecognized sect ion and content) Care Team Personnel Name: DANIEL WAYNE Position: P4 SLOT OPERATIONS MANAGER Provider Member Role: Primary Care Physician Address: Address: [address] [place] [phone] [place] [address] Care Team Related Persons Name: TOM MARADIAGA Name: DANNY MEIER Address: [address] [phone] Name: JOVITA MEIERUA Address: Home [address] [place] [phone] Care Team Personnel Name: DANIEL WAYNE Position: P4 SLOT OPERATIONS MANAGER Provider Member Role: Primary Care Physician Address: Address: [address] [place] [phone] [place] [address] Care Team Related Persons Name: TOM MARADIAGA Name: DANNY MEIER Address: [address] [place], [place] [id number] Name: DANNY MEIER Address: Home [address] [place] [phone] INFORMATION SOURCE (unrecogn ized section and content) DATE CREATED AUTHOR 10/14/2022 [facility] ([place] DATE CREATED AUTHOR AUTHOR'S ORGANIZ ATION 07/26/2024 [facility] DATE CREATED AUTHOR AUTHOR'S ORGANIZ ATION 07/05/2025 [facility] DATE CREATED AUTHOR AUTHOR'S ORGANIZ ATION 07/06/2025 [facility] Care Teams (unrecognized sec tion and content) Team Status: Active Member Role Status Dates Dr. Derek Molina MD Family Provider Active Dr. Derek Molina MD Primary Care Provider Activ e Team Status: Inactive Member Role Status Dates Dr. Derek Molina MD Primary Care Provider, Atte nding Provider Active Team Status: Active Member Role Status Dates Dr. Derek Molina MD Primary Care Provider, Attending Provider, Referring Provider Active Team Status: Inactive Member Role Status Dates Dr. Derek Molina MD Primary Care Provider, Attending Provider, Referring Provider Active Team Status: Active Member Role Status Dates Dr. Derek Molina MD Primary Care Provider Activ e Dr. Abdullahi Fenton MD Attending Provider Active Dr. Cornell Vela MD Referring Provider Active Team Status: Inactive Member Role Status Dates Dr. Derek Molina MD Primary Care Provider Activ e Dr. Cornell Vela MD Attending Provider, Referring Pr ovider Active Team Status: Active Member Role Status Dates Dr. Reba Molina MD Family Provider Active Dr. Reba Molina MD Primary Care Provider Acti ve Team Status: Active Member Role Status Dates Dr. Reba Molina MD Primary Care Provider Acti ve Dr. Abdullahi Fenton MD Attending Provider Active Dr. Cornell Vela MD Referring Provider Active Team Status: Inactive Member Role Status Dates Dr. Reba Molina MD Primary Care Provider, Attending Provider, Referring Provider Active Team Status: Inactive Member Role Status Dates Dr. Reba Molina MD Primary Care Provider Acti ve Dr. Cornell Vela MD Attending Provider, Referring Pr ovider Active Team Status: Inactive Member Role Status Dates Dr. Reba Molina MD Primary Care Provider, Att ending Provider Active Team Status: Active Member Role/Relationship Status Dates Dr. Reba Molina MD Primary Care Provider Acti ve Team Status: Inactive Member Role/Relationship Status Dates Dr. Reba Molina MD Primary Care Provider Acti ve Start: June 17, 2025 End: June 17, 2025 Dr. Reba Molina MD Attending Provider Active Start: June 17, 2025 End: June 17, 2025 Dr. Reba Molina MD Referring Provider Active Start: June 17, 2025 End: June 17, 2025 Source Comments (unrecognize d section and content) In the event this informatio n is protected by the Federal Confidentiality of Alcohol and Drug Abuse Patient Records regulations: The Federal rules restrict any use of the information to criminally investigate or prosecute any alcohol or drug abuse patient.[facility] Reason for Visit (unrecogniz ed section and content) Reason Comments New Knee Pain Left knee meniscus tear FOR RECORDS PERTAINING TO PATIENTS WHO ARE [...] BE BASED ON THE PRIMARY CLINICAL RECORDS. [employer] [facility]. provides no warranty or guarantee of the accuracy or completeness of information in this document.
--- NOTE | 2025-07-08 06:44 | CT_ITS ---
PROCEDURE: ABDOMEN/PELVIS WITH CONTRAST 07/08/2025 REASON FOR EXAM: COLITIS Hematuria. Right flank pain. History of prior colectomy. TECHNIQUE: ABDOMEN/PELVIS WITH CONTRAST Coronal and Sagittal reconstruction series were provided. CONTRAST: Isovue-300 VOLUME: 100 mL One or more dose reduction techniques were used (e.g., Automated exposure control, adjustment of the mA and/or kV according to patient size, use of iterative reconstruction technique. RADIATION DOSE SUMMARY: CTDlvol: 17.09 mGy DLP: 1170.75 mGycm COMPARISON: None FINDINGS: Lung bases: Lung bases are clear. Liver: Diffuse fatty infiltration. Gallbladder: Surgically absent. Spleen: Normal size. Pancreas: Normal size without evidence of mass surrounding inflammation or ductal dilation. Adrenals: There is a 26.8 mm hypodense nodule in the right adrenal glands suggestive of either an adenoma or myelolipoma. Kidneys: Normal renal sizes. No hydronephrosis. Bladder: Unremarkable Reproductive Organs: Unremarkable Bowel: Nonspecific bowel gas pattern. Appendix: Unremarkable Lymph nodes: Unremarkable. Vasculature: Mild diffuse atherosclerotic calcifications are noted. Peritoneum / Retroperitoneum: Unremarkable Bones: Degenerative changes of the spine. Dextroscoliosis. CT/Abdomen/Pelvis WITH Contrast IMPRESSION: Fatty infiltration of the liver. Status post cholecystectomy. 26.8 mm hypodense nodule in the right adrenal gland suggestive of either an tommy noma or myelolipoma. Reading Location: [place] [id number]
== END | disposition home or self-care (01) ==
PROVIDERS: PCP Family Medicine; Referring Provider Family Medicine; Visit Provider Family Medicine
DX: K52.9 Noninfective gastroenteritis and colitis, unspecified (principal)
CPT/HCPCS: 74177; Q9967

== ENCOUNTER → 2025-07-09 | Outpatient (CLI) | payer OTHER, SELFPAY ==
[2025-07-09 18:18] LABS: CORTISOL PM 4.30 ug/dL (2.68-10.50)
== END | disposition home or self-care (01) ==
LOC: MFPLAB 15:34
PROVIDERS: PCP Family Medicine; Visit Provider Family Medicine
DX: E27.8 Other specified disorders of adrenal gland (principal)
CPT/HCPCS: 36415; 81050; 82157; 82530; 82533; 82627; 83498; 84402; 82626

== ENCOUNTER → 2025-11-08 | Outpatient (CLI) | payer OTHER, SELFPAY ==
--- OUTSIDE RECORDS SUMMARY | 2025-11-08 08:03 | XMS RPT_ITS | CCD ---
Author Organization [facility] Care Team Providers Care Chemical Plant Operator Supervisor Name Role Phone TONE LEAD SHIPPER-COMMERCIAL ATTACHEGRICELAH Primary Care Physician DR. MALI GREY DO Attending Unavail able WAYNE LEAD SHIPPER-COMMERCIAL ATTACHE, DANIEL Attending Unavail able WAYNE LEAD SHIPPER-COMMERCIAL ATTACHE, [place] Primary Care Unavail able WAYNE LEAD SHIPPER-COMMERCIAL ATTACHE, [place] Attending Unavail able WAYNE LEAD SHIPPER-COMMERCIAL ATTACHE, [place] Primary Care Unavail able Dr. Derek Molina Primary Care Provider Dr. Abdullahi Fenton Attending Provider [phone] Dr. Cornell Vela Referring Provider [phone] Reba Molina Primary Care Provider [phone] Unavailable Primary Care Provider UnavailEMMANUEL Peralta Attending Unavailable WAYNE LEAD SHIPPER-VERN, [place] Primary Care Physician Dr. Reba Molina MD Primary Care Provider Dr. Reba Molina MD Attending Provider [phone] Dr. Reba Molina MD Referring Provider [phone] Reba Molina Referring Unavailable Reba Molina Attending Unavailable Reba Molina Primary Care Unavailable Reba Molina Referring Unavailable Reba Molina Attending Unavailable Reba Molina Primary Care Unavailable Reba Molina Referring Unavailable Reba Molina Attending Unavailable Reba Molina Primary Care Unavailable Reba Molina Attending Unavailable Reba Molina Primary Care Unavailable Reba Molina Primary Care Unavailable Reba Molina Attending Unavailable Reba Molina Primary Care Unavailable Reba Molina Attending Unavailable JESSE FULLER, DR BRITTON Primary Care Physician WAYNEJUDSON BALDERRAMA, [place] Attending Unavail able TONE ABLDERRAMA, [place] Primary Care Unavail able DIDIER RODRIGUEZ DO Attending Unavailable JESSE FULLER, DR BRITTON Primary Care Elena morris WAYNEJUDSON BALDERRAMA, [place] Primary Care Unavail able GABRIELA FULLER, ROSETTA Attending Unavailable TONE BALDERRAMA, [place] Primary Care Unavail able GABRIELA FULLER, ROSETTA Attending Unavailable GABRIELA FULLER, ROSETTA Attending Unavailable WAYNEJUDSON BALDERRAMA, [place] Primary Care Unavail able Jesse FULLER, Reba Primary Care Provider VIOLA JUNIOR Attending Unavailable Allergies Allergy Classification Reported Allergen(s) Allergy Type Date of Onset Reaction(s) Facility (19 sources) Erythromycin; Translations: [erythromycin] Drug Allergy 5 Hives, Anaphylaxis, Shortness of breath [facility] (2 sources) Escitalopram; Translations: [ESCITALOPRAM OXALATE] Drug Allergy 5 [facility] Work Phone: (2 sources) Sertraline; Translations: [SERTRALINE HCL] Drug Allergy 5 [facility] (1 source) Erythromycin; Translations: [ERYTHROMYCIN] Drug Allergy 5 [facility] (1 source) Erythromycin Drug Allergy 9 [facility] Repository (4 sources) HYDROmorphone; Translations: [hydromorphone] Drug Allergy 5 Shortness of breath [facility] Medications Current Medications Medication Drug Class(es) Dates Sig (Normalized) Sig (Original) 1000 MG estradiol 0.001 MG/MG Topical Gel [Divigel] (2 sources) Start: 08-04-2025 Divigel 1 mg/packet (0.1%) transdermal gel Dose = 1 packet(s), Transdermal, qDay, apply to clean, dry, intact skin on right or left upper thigh. rotate thighs daily, # 30 packet(s), 1 Refill(s), Pharmacy: [facility]/pharmacy #[id number], Menopausal symptoms, 161, cm, 07/07/25 8:30:00 EDT, Height, kg, 07/07/25 8:30:00 EDT, Dosing Weight Start Date: 08/04/25 Status: Ordered Medication Dispense Status: Completed Quantity: 30.0 Unit: packet(s) Total Allowed Fills: 2 Fills Dispensed: 0 Indications: Menopausal and female climacteric states; Start: 05-13-2025 Divigel 1 mg/p acket (0.1%) transdermal gel Dose = 1 packet(s), Transdermal, qDay, apply to clean, dry, intact skin on right or left upper thigh. rotate thighs daily, # 30 packet(s), 1 Refill(s), Pharmacy: [facility]/pharmacy #[id number], Menopausal symptoms, 161, cm, 05/13/25 8:33:00 EDT, [...] daily, # 30 packet(s), 11 Refill(s), Pharmacy: [facility]/pharmacy #[id number], 161, cm, 03/11/25 16:15:00 EDT, Height, kg, 03/11/25 16:15:00 EDT, Dosing Weight Start Date: 04/03/25 Status: Ordered Medication Dispense Status: Completed Quantity: 30.0 Unit: packet(s) Total Allowed Fills: 12 Fills Dispensed: 0 [id number] actuat albuterol 0.09 mg/actuat metered dose inhaler (1 source) beta2-Adrenerg ic Agonist Start: 06-08-2017 take 2 puff(s) by inhalation every four hours as needed for wheezing albuterol HFA (VENTOLIN HFA) 90 mcg/actuation inhaler Indications: Mild intermittent asthma without complication Inhale 2 Puffs as instructed every 4 hours as needed for Wheezing/Shortness of Breath. 1 Inhaler 06/08/2017 Active Albuterol (Eqv-Proventil HFA) 90 mcg/inh inhalation aerosol (5 sources) Start: 09-19-2022 take 2 puff(s) by [...] (PROBIOTIC 4X ORAL) Take by mouth. Active betamethasone 0.5 mg/ml topical cream (3 sources) Corticosteroid Start: 09-04-2025 betamethasone dipropionate 0.05 % cream 1 (ONE) APPLICATION TWICE A DAY TO AFFECTED AREAS 09/04/2025 Active clobetasol propionate 0.5 mg/ml topical cream (7 sources) Corticosteroid Start: 07-07-2025 clobetasol (Temovate) 0.05 % cream APPLY A THIN FILM 2 TIMES AWEEK 07/07/2025 Active Start: 07-07-2025 Clobetasol (Eq v-Temovate) 0.05% topical cream See Instructions, apply a thin film twice a week., # 30 gram(s), 1 Refill(s), Pharmacy: [facility], Lichen sclerosus, 161, cm, 07/07/25 8:30:00 EDT, Height, kg, 07/07/25 8:30:00 EDT, Dosing Weight Start Date: 07/07/25 Status: Ordered Medication Dispense Status: Completed Quantity: 30.0 Unit: g Total Allowed Fills: 2 Fills Dispensed: 0 Indications: Lichen sclerosus et atrophicus; Start: 02-21-2024 Temovate 0.05% topical cream Apply 1 eddie, Topical, qDay, apply a thin film daily for a week then 2x/week, # 30 gram(s), 0 Refill(s), Pharmacy: [facility], Cream, 161, cm, 02/21/24 [...] COMPOUNDED PRESCRIPTION (1 source) Start: 11-22-2016 COMPOUNDED PRE SCRIPTION Indications: MARCELINO on CPAP CPAP MASK AND TUBING AND FILTER, AND HEAD GEAR DX G47.33 1 Each 12 11/22/2016 Active Estradiol (7 sources) Estrogen Start: 04-03-2025 estradiol (Div igel) gel Place 0.5 mg on the skin Daily 04/03/2025 Active Start: 09-24-2024 Climara 0.05 m g/24 hours weekly transdermal film, extended release Apply [...] 2X/week, # 15 gram(s), 0 Refill(s), Pharmacy: [facility], Well woman exam Screening [...] 04/04/2017 Active hydroCHLOROthiazide 25 mg oral tablet (9 sources) Thiazide Diuretic Start: 10-31-2016 take 1 tablet by mouth once daily hydroCHLOROthiazide (HYDRODiuril) 25 MG tablet Take 25 mg by mouth Daily 07/16/2025 Active meloxicam 15 mg oral tablet (2 sources) Nonsteroidal Anti-inflammatory Drug Start: 03-31-2017 End: 06-25-2024 take 1 tablet by mouth once daily meloxicam (MOBIC) 15 mg tablet Take 1 tablet by mouth once daily. 90 tablet 1 06/25/2024 Active PPQ mitochondrial supple (3 sources) Start: 09-24-2024 PPQ mitochondrial supple PPQ mitochondrial supple, 0 Refill(s), 110.5 Start Date: 09/24/24 Status: Ordered Medication Dispense Status: Completed Total Allowed Fills: 1 Fills Dispensed: 0 Start: 09-24-2024 PPQ mitochondr ial supple PPQ mitochondrial supple, 0 Refill(s), 110.5 Start Date: 09/24/24 Status: Ordered progesterone 100 mg oral capsule (6 sources) Progesterone Start: 04-26-2025 take 1 capsule by mouth once daily progesterone 100 mg oral capsule 1 cap(s), Oral, qDay, # 90 cap(s), 1 Refill(s), Pharmacy: [facility], 161, cm, 03/11/25 16:15:00 EDT, Height, kg, 03/11/25 16:15:00 EDT, Dosing Weight Start Date: 04/26/25 Status: Ordered Medication Dispense Status: Completed Quantity: 90.0 Unit: cap(s) Total Allowed Fills: 1 Fills Dispensed: 0 Start: 09-24-2024 End: 03-23-2025 Prometrium 100 mg oral capsu le Dose : 100 mg = 1 cap(s), Oral, qDay, # 90 cap(s), 1 Refill(s), Pharmacy: [facility], Obesity Screening for breast [...] prior to travel. 2 Patch 04/21/2017 Active Tirzepatide 2.5 MG/0.5ML solution auto-injector (2 sources) Tirzepatide 2.5 MG/0.5ML solution auto-injector Inject under the skin Active traMADol hydrochloride 50 mg oral tablet (3 sources) Opioid Agonist Start: 06-09-2025 traMADol (Ultr am) 50 MG tablet 06/09/2025 Active Turmeric extract (10 sources) Start: 05-13-2025 Turmeric 500 M G capsule 0 Refill(s) 05/13/2025 Active Start: 05-13-2025 turmeric 500 m g oral capsule 0 Refill(s) Start Date: 05/13/25 Status: Ordered Medication Dispense Status: Completed Total Allowed Fills: 1 Fills Dispensed: 0 Start: 09-24-2024 turmeric 500 m g oral capsule 0 Refill(s) Start Date: 09/24/24 Status: Ordered End: 10-01-2025 Turmeric (QC Tumeric Complex ) 500 MG capsule 10/01/2025 Discontinued (Therapy completed) Turmeric (QC Javier kem Complex) 500 MG capsule Active take 1 tablet by shravan th once daily TURMERIC ORAL Take by mouth. Takes 1 tablet daily Active Completed/Discontinued Medications Medication Drug Class(es) Dates Sig (Normalized) Sig (Original) dicyclomine hydrochloride 20 mg oral tablet (3 sources) Anticholinergic Start: 06-08-2025 End: 10-01-2025 take 1 tablet by mouth four times daily dicyclomine (Bentyl) 20 MG tablet TAKE 1 TABLET BY MOUTH 4 TIMES A DAY FOR 7 DAYS 06/08/2025 10/01/2025 Discontinued (Therapy completed) nitrofurantoin, macrocrystals 25 mg / nitrofurantoin, monohydrate 75 mg oral capsule (3 sources) Nitrofuran Antibacterial Start: 06-06-2025 End: 10-01-2025 take 1 capsule by mouth once daily nitrofurantoin, macrocrystal-mono hydrate, (Macrobid) 100 MG capsule Take 100 mg by mouth Daily 06/06/2025 10/01/2025 Discontinued (Therapy completed) predniSONE 20 mg oral tablet (4 sources) Start: 09-03-2025 End: 10-01-2025 predniSONE (Deltasone) 20 MG tablet TAKE 2 TABLETS BY MOUTH FOR 3 DAYS-THEN 1 TABLET BY MOUTH FOR 4 DAYS 09/03/2025 10/01/2025 Discontinued (Therapy completed) Start: 09-01-2025 End: 09-06-2025 predniSONE 50 mg oral tablet Dose : 50 mg = 1 tab(s), Oral, qDay, Take with food, X 5 day(s), # 5 tab(s), 0 Refill(s), 09/06/25 5:00:00 PM EDT Start Date: 09/01/25 Stop Date: 09/06/25 Status: Ordered Medication Dispense Status: Completed Quantity: 5.0 Unit: tab(s) Total Allowed Fills: 1 Fills Dispensed: 0 Problems Active Problems Problem Classification Problem Date Documented Date Episodic/Chronic Abdominal pain (1 source) Right lower quadrant pain; Translations: [Right lower quadrant pain] Onset: 06-23-2025 Episodic Asthma (4 sources) Asthma; Translations: [Unspecified asthma, uncomplicated] Onset: 10-01-2025 11-22-2016 Chronic Essential hypertension (4 sources) Essential hypertension; Translations: [Essential (primary) hypertension] Onset: 03-30-2016 03-30-2016 Chronic Immunizations and screening for infectious disease (4 sources) Encounter for screening for human papillomavirus (HPV); Translations: [Patient encounter status] Onset: 09-19-2022 Episodic Menopausal disorders (5 sources) Menopausal symptom; Translations: [Menopausal and female climacteric states] Onset: 09-14-2007 Resolved: 01-31-2014 01-31-2014 Chronic Noninfectious gastroenteritis (1 source) Noninfective gastroenteritis and colitis, unspecified; Translations: [Noninfective gastroenteritis and colitis, unspecified] Onset: 07-14-2025 Episodic Other endocrine disorders (1 source) Other specified disorders of adrenal gland; Translations: [Other specified disorders of adrenal gland] Onset: 07-15-2025 Chronic Other non-traumatic joint disorders (1 source) Pain in left knee; Translations: [Pain in joint, lower leg] 07-24-2024 Episodic Other nutritional; endocrine; and metabolic disorders (1 source) Body mass index 40+ - severely obese; Translations: [Body mass index (BMI) 40.0-44.9, adult] Onset: 08-25-2014 08-25-2014 Chronic Other nutritional; endocrine; and metabolic disorders (6 sources) Obesity; Translations: [Obesity, unspecified] Onset: 10-01-2025 07-11-2024 Chronic Other screening for suspected conditions (not mental disorders or infectious disease) (9 sources) Encounter for screening for malignant neoplasm of cervix; Translations: [Patient encounter status] Onset: 04-22-2016 Resolved: 11-22-2016 Episodic Other skin disorders (2 sources) Lichen sclerosus et atrophicus; Translations: [Circumscribed scleroderma] 10-01-2025 Chronic Other skin disorders (1 source) Eruption; Translations: [Rash and other nonspecific skin eruption] Onset: 08-31-2025 Episodic Other skin disorders (1 source) Rash and other nonspecific skin eruption; Translations: [Rash and other nonspecific skin eruption] Onset: 08-31-2025 Episodic Residual codes; unclassified (4 sources) Obstructive sleep apnea syndrome; Translations: [Obstructive sleep [...] hemorrhage)] Onset: 01-13-2006 Resolved: 01-31-2014 01-31-2014 Chronic Mood disorders (1 [...] in right shoulder] Onset: 12-18-2024 Episodic Other upper respiratory disease (4 sources) Disorder of the larynx; Translations: [Other diseases of larynx] Onset: 11-02-2015 11-02-2015 Episodic Urinary tract infections (1 source) Urinary tract infection, site not specified; Translations: [Urinary tract infection, site not specified] Onset: 09-19-2024 Episodic Results Test Name Value Interpretation Reference Range Facility DHEA Sulfateon 07-18-2025 DHEA SULFATE 16.3 ug/dL Low 29.4-220.5 [facility] Comment on above: Order Comment: Order Date: 07/09/25 Order Info: [id number] - DHEA-S Order Info: [id number] - ADALID Order Info: [id number] - TESTOF N Performed By: #### L 3100.9000, L3400.4800, L3300.1500 #### [facility] [address] [place], [address] Testosterone [facility] <0.2 Normal 0.0-4.2 [facility] Comment on above: Order Comment: Order Date: 07/09/25 Order Info: [id number] - DHEA-S Order Info: [id number] - ADALID Order Info: [id number] - TESTOF Result Comment: Perf ormed at: [facility] [address] [id number] Floater Operator: Ken Villegas PhD, Phone: [phone] Performed at: [facility] [address] [id number] Floater Operator: Gina Linares MD, Phone: [phone] Performed By: #### L 3100.9000, L3400.4800, L3300.1500 #### [facility] [address] [place], [place], [id number] Androstenedioneon 07-17-2025 ANDROSTENEDIONE 13 ng/dL Low 17-99 [facility] Comment on above: Order Comment: Test( s) 784137-Eyrwwxioafrmhun LCMS was developed and its performance characteristics determined by [facility]. It has not been cleared or approved by the Food and Drug Administration. Result Comment: Perf ormed at: [address] [id number] Floater Operator: Gina Linares MD, Phone: [phone] Performed By: #### L 4161.0460 #### [facility] [address] [place], [place], [address] 17-Hydroxyprogesteroneon 17ALPHA [place]-PROG < 10 Normal . [facility] Comment on above: Order Comment: Test( s) [id number]-AV Progesterone LCMS was developed and its performance characteristics determined by [facility]. It has not been cleared or approved by the Food and Drug Administration. N Result Comment: Adul t Female Follicular 15 - 70 Luteal 35 - 290 Performed at: [address] [id number] Floater Operator: Gina Linares MD, Phone: [phone] Performed By: #### L 3100.9000, L3400.4800, L3300.1500 #### [facility] [address] [place], [place], [id number] (758) Cortisol, 24 HR UR Freeon CORTISOL,F/24hr 12 ug/24 hr Normal 6-42 [facility] Comment on above: Order Comment: Test( s) 155566-Vobtxzoy,F,ug/L,U was developed and its performance characteristics determined by [facility]. It has not been cleared or approved by the Food and Drug Administration. Result Comment: Perf ormed at: [address] [id number] Floater Operator: Gina Linares MD, Phone: [phone] Performed By: #### L 3686.8816 #### [facility] [address] [place], [place], [address] (457) CORTISOL,U FREE 4 ug/L Normal Undefined [facility] Comment on above: Order Comment: Test( s) 693123-Otxubbpo,F,ug/L,U was developed and its performance characteristics determined by [facility]. It has not been cleared or approved by the Food and Drug Administration. Performed By: #### L 3600.5400 #### [facility] [address] [facility] [place], [address] L509.6002on 07-09-2025 CORTISOL 4.30 ug/dL Normal 2.68-10.50 [facility] Comment on above: Order Comment: Test( s) 374817-Iiqmaeik,F,ug/L,U was developed and its performance characteristics determined by [facility]. It has not been cleared or approved by the Food and Drug Administration. Performed By: #### L 3600.5400 #### [facility] [address] [place], [address] Serum or plasma cortisol josie surement (mass/volume)Ordered By: Reba Molina on 07-09-2025 Cortisol [Mass/Vol] 4.30 ug/dL 2.68-10.50 [facility] Abdomen/Pelvis WITH Contrast on 07-08-2025 Abdomen/Pelvis WITH Contrast [facility] Imaging Services [address] [place] [address] Abdomen/Pelvis WITH Contrast MR#: [id number] Acct: [id number] Name: CLIFF MEIER Rep #: [id number] : 1960 F 65 From: Maxime cerda MD PCP: Dr. Reba Molina MD Status: REG CLI Study: Abdomen/Pelvis WITH Contrast Date of Exam: 11/20 Exam# [id number] Ordering Dr: Reba Molina PROCEDURE: ABDOMEN/PELVIS WITH CONTRAST 07/08/2025 REASON FOR EXAM: COLITIS Hematuria. Right flank pain. History of prior colectomy. TECHNIQUE: ABDOMEN/PELVIS WITH CONTRAST Coronal and Sagittal reconstruction series were provided. CONTRAST: Isovue-300 VOLUME: 100 mL One or more dose reduction techniques were used (e.g., Automated exposure control, adjustment of the mA and/or kV according to patient size, use of iterative reconstruction technique. RADIATION DOSE SUMMARY: CTDlvol: 17.09 mGy DLP: 1170.75 mGycm COMPARISON: None FINDINGS: Lung bases: Lung bases are clear. Liver: Diffuse fatty infiltration. Gallbladder: Surgically absent. Spleen: Normal size. Pancreas: Normal size without evidence of mass surrounding inflammation or ductal dilation. Adrenals: There is a 26.8 mm hypodense nodule in the right adrenal glands suggestive of either an adenoma or myelolipoma. Kidneys: Normal renal sizes. No hydronephrosis. Bladder: Unremarkable Reproductive Organs: Unremarkable Bowel: Nonspecific bowel gas pattern. Appendix: Unremarkable Lymph nodes: Unremarkable. Vasculature: Mild diffuse atherosclerotic calcifications are noted. Peritoneum / Retroperitoneum: Unremarkable Bones: Degenerative changes of the spine. Dextroscoliosis. CT/Abdomen/Pelvis WITH Contrast IMPRESSION: Fatty infiltration of the liver. Status post cholecystectomy. 26.8 mm hypodense nodule in the right adrenal gland suggestive of either an adenoma or myelolipoma. Reading Location: [place] [address] CC: Dr. 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 Normal [facility] E2on 07-03-2025 Estradiol Level 39.24 pg/mL Normal [facility] Comment on above: Result Comment: Adult Female E2 Reference Ranges: Follicular phase 19.5 - 144.2 pg/mL Midcycle 63.9 - 356.7 pg/mL Luteal phase 55.8 - 214.2 pg/mL Post menopausal 0 - 33.2 pg/mL Performed By: #### P GLO CAMPBELL, E2 #### [place] [address] LABORATORYOrdered By: SYSTEM SYSTEM on 07-03-2025 E2 [Mass/Vol] 39.24 pg/mL Invalid Interpretation Code ADM Comment on above: Interpretive Data: Adult Female E2 Reference Ranges: Follicular phase 19.5 - 144.2 pg/mL Midcycle 63.9 - 356.7 pg/mL Luteal phase 55.8 - 214.2 pg/mL Post menopausal 0 - 33.2 pg/mL Progesterone [Mass/Vol] 10.2 ng/mL Invalid Interpretation Code ADM SS Comment on above: Interpretive Data: A dult Female Progesterone Reference Ranges: Follicular phase <0.21 - 1.40 ng/mL Luteal phase 3.34 - 25.56 ng/mL Mid-Luteal phase 4.44 - 28.03 ng/mL Postmenopausal <0.21 - 0.73 ng/ml Female: First trimester 11.22 - 90.00 ng/ml Second trimester 25.55 - 89.40 ng/ml Third trimester 48.40 - 422.50 ng/ml Testosterone [Mass/Vol] ng/dL Invalid Interpretation Code ADM SS Comment on above: Interpretive Data: N ormal Reference Ranges for Females: Female Premenopause Lzg04-597.01-47.94 ng/dL Female Postmenopause Qlp83-92<7.00-45.62 ng/dL PROGon 07-03-2025 Progesterone Level 10.2 ng/mL [facility] Comment on above: Result Comment: Adul t Female Progesterone Reference Ranges: Follicular phase <0.21 - 1.40 ng/mL Luteal phase 3.34 - 25.56 ng/mL Mid-Luteal phase 4.44 - 28.03 ng/mL Postmenopausal <0.21 - 0.73 ng/ml Female: First trimester 11.22 - 90.00 ng/ml Second trimester 25.55 - 89.40 ng/ml Third trimester 48.40 - 422.50 ng/ml Performed By: #### P GLO CAMPBELL, E2 #### [place] [address] TESTOon 07-03-2025 Testosterone Lvl <7.00 [facility] Comment on above: Result Comment: Norm al Reference Ranges for Females: Female Premenopause Age 21-60 9.01-47.94 ng/dL Female Postmenopause Age 45-89 <7.00-45.62 ng/dL Performed By: #### P SHANNAN, TESTO, E2 #### [place] [address] Absolute lymphocyte countOrd ered By: Reba Molina on 06-17-2025 Lymphocytes Auto (Unsp spec) [#/Vol] 2.20 10*3/uL 0.83-4.51 [facility] Absolute neutrophil countOrd ered By: Reba Molina on 06-17-2025 Neutrophils (Bld) [#/Vol] 5.6 10*3/uL 2.0-7.7 [facility] Anion gap in Serum or Plasma Ordered By: Reba Molina on 06-17-2025 Anion gap [Moles/Vol] 12 mmol/L 5- [facility] Automated lymphocyte count a s percentage of total leukocytesOrdered By: Reba Molina on 06-17-2025 Lymphocytes/100 WBC Auto (Unsp spec) 25.4 % - [facility] BUN/creatinine ratioOrdered By: Reba Molina on 06-17-2025 Urea nitrogen/Creatinine [Mass ratio] 18.5 mg/mg 10- [facility] Basophil percentageOrdered B y: Reba Molina on 06-17-2025 Basophils/100 WBC (Bld) 0.5 % 0-1 [facility] Bilirubin, totalOrdered By: Reba Molian on 06-17-2025 Bilirubin [Mass/Vol] 0.29 mg/dL 0.00-1.30 [facility] CBC W/Diff, Automatedon 05-28 Absolute Lymph 2.20 X10 3/uL Normal 0.83-4.51 [facility] Comment on above: Order Comment: Order Date: 06/16/25 Order Info: [id number] - CBCD Order Info: [id number] - SED Performed By: #### L 501.6710, L101.9900, L500.4050, L100.0100 #### [facility] [address] [place], [address] Absolute Neut 5.6 X10 3/uL Normal 2.0-7.7 [facility] Comment on above: Order Comment: Order Date: 06/16/25 Order Info: [id number] - CBCD Order Info: [id number] - SED Performed By: #### L 501.6710, L101.9900, L500.4050, L100.0100 #### [facility] [address] [place], [address] Basophils/100 WBC (Bld) 0.5 % Normal 0-1 [facility] Comment on above: Order Comment: Order Date: 06/16/25 Order Info: [id number] - CBCD Order Info: [id number] - SED Performed By: #### L 501.6710, L101.9900, L500.4050, L100.0100 #### [facility] [address] [place], [address] Eosinophils/100 WBC (Bld) 2.0 % Normal 0-5 [facility] Comment on above: Order Comment: Order Date: 06/16/25 Order Info: [id number]- - CBCD Order Info: [id number] - SED Performed By: #### L 501.6710, L101.9900, L500.4050, L100.0100 #### [facility] [address] [place], [address] Erythrocyte distribution width (RBC) [Ratio] 15.4 % High 11.6-14.6 [facility] Comment on above: Order Comment: Order Date: 06/16/25 Order Info: [id number]- - CBCD Order Info: [id number] - SED Performed By: #### L 501.6710, L101.9900, L500.4050, L100.0100 #### [facility] [address] [place], [address] Hematocrit (Bld) [Volume fraction] 40.4 % Normal 37-47 [facility] Comment on above: Order Comment: Order Date: 06/16/25 Order Info: [id number]- - CBCD Order Info: [id number] - SED Performed By: #### L 501.6710, L101.9900, L500.4050, L100.0100 #### [facility] Laboratory [address] [place], [address] Hemoglobin (Bld) [Mass/Vol] 12.4 g/dL Normal 12.0-15.0 [facility] Comment on above: Order Comment: Order Date: 06/16/25 Order Info: 01802-25 - CBCD Order Info: 60078-5 - SED Performed By: #### L 501.6710, L101.9900, L500.4050, L100.0100 #### [facility] [address] [place], [address] IG% 0.300 Normal 0.0-0.9 [facility] Comment on above: Order Comment: Order Date: 06/16/25 Order Info: 01802-25 - CBCD Order Info: 03855-5 - SED Result Comment: IG% - Immature Granulocytes (promyelocytes, myelocytes and metamyelocytes) > 1% indicates that a LEFT SHIFT is Present. Performed By: #### L 501.6710, L101.9900, L500.4050, L100.0100 #### [facility] [address] [place], [address] Lymphocytes/100 WBC (Bld) 25.4 % Normal 19-41 [facility] Comment on above: Order Comment: Order Date: 06/16/25 Order Info: 01802-25 - CBCD Order Info: 95490-8 - SED Performed By: #### L 501.6710, L101.9900, L500.4050, L100.0100 #### [facility] [address] [place], [address] MCH (RBC) [Entitic mass] 25.1 pg Low 27.0-32.0 [facility] Comment on above: Order Comment: Order Date: 06/16/25 Order Info: 0184- - CBCD Order Info: 82747-5 - SED Performed By: #### L 501.6710, L101.9900, L500.4050, L100.0100 #### [facility] [address] [place], [address] MCHC (RBC) [Mass/Vol] 30.7 g/dL Low 32-36 [facility] Comment on above: Order Comment: Order Date: 06/16/25 Order Info: 183-11 - CBCD Order Info: 73759-5 - SED Performed By: #### L 501.6710, L101.9900, L500.4050, L100.0100 #### [facility] [address] [place], [address] MCV (RBC) [Entitic vol] 81.6 fL Normal 81-99 [facility] Comment on above: Order Comment: Order Date: 06/16/25 Order Info: 183-11 - CBCD Order Info: 68026-9 - SED Performed By: #### L 501.6710, L101.9900, L500.4050, L100.0100 #### [facility] [address] [place], [address] Monocytes/100 WBC (Bld) 6.7 % Normal 0-10 [facility] Comment on above: Order Comment: Order Date: 06/16/25 Order Info: 183-11 - CBCD Order Info: 93892-3 - SED Performed By: #### L 501.6710, L101.9900, L500.4050, L100.0100 #### [facility] [address] [place], [address] Neutrophils/100 WBC (Bld) 65.1 % Normal 47-70 [facility] Comment on above: Order Comment: Order Date: 06/16/25 Order Info: 183-11 - CBCD Order Info: 22129-0 - SED Performed By: #### L 501.6710, L101.9900, L500.4050, L100.0100 #### [facility] [address] [place], [address] Nucleated RBC (Bld) [#/Vol] 0 10*3/uL Normal 0-5 [facility] Comment on above: Order Comment: Order Date: 06/16/25 Order Info: 183-11 - CBCD Order Info: 02733-6 - SED Performed By: #### L 501.6710, L101.9900, L500.4050, L100.0100 #### [facility] [address] [place], [address] Platelet mean volume (Bld) [Entitic vol] 10.6 fL Normal 6.2-12.0 [facility] Comment on above: Order Comment: Order Date: 06/16/25 Order Info: 183- - CBCD Order Info: 45795-4 - SED Performed By: #### L 501.6710, L101.9900, L500.4050, L100.0100 #### [facility] [address] [place], [address] Platelets (Bld) [#/Vol] 370 10*3/uL Normal 150-450 [facility] Comment on above: Order Comment: Order Date: 06/16/25 Order Info: 183-11 - CBCD Order Info: 85721-9 - SED Performed By: #### L 501.6710, L101.9900, L500.4050, L100.0100 #### [facility] [address] [place], [address] RBC (Bld) [#/Vol] 4.95 10*6/uL Normal 4.2-5.4 [facility] Comment on above: Order Comment: Order Date: 06/16/25 Order Info: 01802-25 - CBCD Order Info: 58327-8 - SED Performed By: #### L 501.6710, L101.9900, L500.4050, L100.0100 #### [facility] [address] [place], [address] RDW SD 45.7 fl High 35.1-43.9 [facility] Comment on above: Order Comment: Order Date: 06/16/25 Order Info: 01802-25 - CBCD Order Info: 85599-2 - SED Performed By: #### L 501.6710, L101.9900, L500.4050, L100.0100 #### [facility] [address] [place], [place], [address] WBC (Bld) [#/Vol] 8.7 10*3/uL Normal 4.4-11.0 [facility] Comment on above: Order Comment: Order Date: 06/16/25 Order Info: 0184-1 - CBCD Order Info: 65119-2 - SED Performed By: #### L 501.6710, L101.9900, L500.4050, L100.0100 #### [facility] [address] [place], [place], [address] CRPon 06-17-2025 C-REACTIVE PROT 24.20 mg/L High 0.0-3.0 [facility] Comment on above: Order Comment: Test( s) 147584-Wgojsaqz,F,ug/L,U was developed and its performance characteristics determined by [facility]. It has not been cleared or approved by the Food and Drug Administration. Performed By: #### L 3600.5400 #### [facility] [address] [place], [place], [id number] Carbon dioxide, total [Moles /volume] in Central venous bloodOrdered By: Reba Molina on 06-17-2025 CO2 [Moles/Vol] 25.6 mmol/L 21.0-32.0 [facility] Chloride assayOrdered By: Maribel Molina on 06-17-2025 Chloride [Moles/Vol] 103 mmol/L 98-108 [facility] Comprehensive Metabolic Prof ilon 06-17-2025 Albumin [Mass/Vol] 3.9 g/dL Normal 3.4-4.8 [facility] Comment on above: Order Comment: Test( s) 148991-Nntlznzr,F,ug/L,U was developed and its performance characteristics determined by [facility]. It has not been cleared or approved by the Food and Drug Administration. Performed By: #### L 3600.5400 #### [facility] [address] [place], [address] Albumin/Globulin [Mass ratio] 1.3 {ratio} Normal 0.9-2.4 [facility] Comment on above: Order Comment: Test( s) 071436-Mgnqhkbh,F,ug/L,U was developed and its performance characteristics determined by [facility]. It has not been cleared or approved by the Food and Drug Administration. Performed By: #### L 3600.5400 #### [facility] [address] [place], [place], [id number] [phone] PHOS 100 U/L Normal 35-104 [facility] Comment on above: Order Comment: Test( s) 128890-Isozhfuy,F,ug/L,U was developed and its performance characteristics determined by [facility]. It has not been cleared or approved by the Food and Drug Administration. Performed By: #### L 3600.5400 #### [facility] [address] [place], [place], [id number] (318) ALT [Catalytic activity/Vol] 18 U/L Normal <=34 [facility] Comment on above: Order Comment: Test( s) 319217-Exbemfva,F,ug/L,U was developed and its performance characteristics determined by [facility]. It has not been cleared or approved by the Food and Drug Administration. Performed By: #### L 3600.5400 #### [facility] [address] [place], [address] AST [Catalytic activity/Vol] 22 U/L Normal <=31 [facility] Comment on above: Order Comment: Test( s) 031773-Fjdmwwki,F,ug/L,U was developed and its performance characteristics determined by [facility]. It has not been cleared or approved by the Food and Drug Administration. Performed By: #### L 3600.5400 #### [facility] [address] [place], [address] Bilirubin [Mass/Vol] 0.29 mg/dL Normal 0.00-1.30 [facility] Comment on above: Order Comment: Test( s) 908438-Qoapzlcb,F,ug/L,U was developed and its performance characteristics determined by [facility]. It has not been cleared or approved by the Food and Drug Administration. Performed By: #### L 3600.5400 #### [facility] [address] [place], [address] BUN/CRE 18.5 RATIO Normal 10-20 [facility] Comment on above: Order Comment: Test( s) 166565-Fwqkdcjo,F,ug/L,U was developed and its performance characteristics determined by [facility]. It has not been cleared or approved by the Food and Drug Administration. Performed By: #### L 3600.5400 #### [facility] [address] [place], [address] Calcium [Mass/Vol] 9.4 mg/dL Normal 7.6-11.0 [facility] Comment on above: Order Comment: Test( s) 717197-Jtggtsmt,F,ug/L,U was developed and its performance characteristics determined by [facility]. It has not been cleared or approved by the Food and Drug Administration. Performed By: #### L 3600.5400 #### [facility] [address] [place], [address] Chloride [Moles/Vol] 103 mmol/L Normal 98-108 [facility] Comment on above: Order Comment: Test( s) 686957-Hloikwhe,F,ug/L,U was developed and its performance characteristics determined by [facility]. It has not been cleared or approved by the Food and Drug Administration. Performed By: #### L 3600.5400 #### [facility] [address] [place], [address] CO2 [Moles/Vol] 25.6 mmol/L Normal 21.0-32.0 [facility] Comment on above: Order Comment: Test( s) 544297-Emfwehdy,F,ug/L,U was developed and its performance characteristics determined by [facility]. It has not been cleared or approved by the Food and Drug Administration. Performed By: #### L 3600.5400 #### [facility] [address] [place], [address] Creatinine [Mass/Vol] 0.75 mg/dL Normal 0.70-1.20 [facility] Comment on above: Order Comment: Test( s) 311426-Iwskrdtp,F,ug/L,U was developed and its performance characteristics determined by [facility]. It has not been cleared or approved by the Food and Drug Administration. Performed By: #### L 360.5400 #### [facility] [address] [place], [place], [address] GAP 12 Normal 5-15 [facility] Comment on above: Order Comment: Test( s) 624062-Vfdmqfcx,F,ug/L,U was developed and its performance characteristics determined by [facility]. It has not been cleared or approved by the Food and Drug Administration. Performed By: #### L 3599.5400 #### [facility] [address] [place], [place], [address] GFR/1.73 sq M.predicted among non-blacks MDRD (S/P/Bld) [Vol rate/Area] 89 mL/min/{1.73_m2} Normal >60 [facility] Comment on above: Order Comment: Test( s) 571813-Hcuzofwn,F,ug/L,U was developed and its performance characteristics determined by [facility]. It has not been cleared or approved by the Food and Drug Administration. Result Comment: mL/m in/1.73m2 CKD-EPI Creatinine Equation (2020) Performed By: #### L 3600.5400 #### [facility] [address] [place], [address] Globulin (S) [Mass/Vol] 3.0 g/dL Normal 2.2-4.2 [facility] Comment on above: Order Comment: Test( s) 095769-Qhqlwvdn,F,ug/L,U was developed and its performance characteristics determined by [facility]. It has not been cleared or approved by the Food and Drug Administration. Performed By: #### L 3600.5400 #### [facility] [address] [place], [address] Glucose [Mass/Vol] 91 mg/dL Normal 70-99 [facility] Comment on above: Order Comment: Test( s) 723376-Qcfeozxi,F,ug/L,U was developed and its performance characteristics determined by [facility]. It has not been cleared or approved by the Food and Drug Administration. Performed By: #### L 360.5400 #### [facility] [address] [place], [address] Potassium [Moles/Vol] 4.1 mmol/L Normal 3.3-5.1 [facility] Comment on above: Order Comment: Test( s) 250961-Cijnhzaw,F,ug/L,U was developed and its performance characteristics determined by [facility]. It has not been cleared or approved by the Food and Drug Administration. Performed By: #### L 3599.5400 #### [facility] [address] [place], [address] Sodium [Moles/Vol] 141 mmol/L Normal 133-145 [facility] Comment on above: Order Comment: Test( s) 201605-Djwoeyuq,F,ug/L,U was developed and its performance characteristics determined by [facility]. It has not been cleared or approved by the Food and Drug Administration. Performed By: #### L 3599.5400 #### [facility] [address] [place], [address] T PROT 6.9 g/dL Normal 5.9-8.4 [facility] Comment on above: Order Comment: Test( s) 699624-Mlfdpfzc,F,ug/L,U was developed and its performance characteristics determined by [facility]. It has not been cleared or approved by the Food and Drug Administration. Performed By: #### L 3600.5400 #### [facility] [address] [place], [address] Urea nitrogen [Mass/Vol] 14 mg/dL Normal 4-19 [facility] Comment on above: Order Comment: Test( s) 318812-Myiersqx,F,ug/L,U was developed and its performance characteristics determined by [employer]. It has not been cleared or approved by the Food and Drug Administration. Performed By: #### L 3600.5400 #### [facility] [address] [place], [place], [address] Eosinophil percentageOrdered By: Reba Molina on 06-17-2025 Eosinophils/100 WBC (Bld) 2.0 % 0-5 [facility] Erythrocyte Sed Rateon 06-17 SED RATE 15 mm/hr Normal 0-30 [facility] Comment on above: Order Comment: Order Date: 06/16/25 Order Info: 0184-1 - CBCD Order Info: 63477-7 - SED Performed By: #### L 501.6710, L101.9900, L500.4050, L100.0100 #### [facility] [address] [place], [place], [address] Erythrocyte distribution wid th ratioOrdered By: Reba Molina on 06-17-2025 Erythrocyte distribution width (RBC) [Ratio] 15.4 % High 11.6-14.6 [facility] Erythrocyte distribution wid th standard deviationOrdered By: Reba Molina on 06-17-2025 Erythrocyte distribution width (RBC) [Ratio] 45.7 fl High 35.1-43.9 [facility] Erythrocyte sedimentation ra teOrdered By: Reba Molina on 06-17-2025 ESR (Bld) [Velocity] 15 mm/h 0-30 [facility] Glomerular filtration rate ( GFR) estimation/1.73 sq m using serum, plasma, or whole bOrdered By: Reba Molina on 06-17-2025 GFR/1.73 sq M.predicted among non-blacks MDRD (S/P/Bld) [Vol rate/Area] 89 mL/min/{1.73_m2} >60 [facility] Comment on above: mL/min/1.73m2 CKD-EP I Creatinine Equation (2020) Hematocrit Auto (Bld) [Volum e fraction]Ordered By: Reba Molina on 06-17-2025 Hematocrit (Bld) [Volume fraction] 40.4 % 37-47 [facility] Hemoglobin measurementOrdere d By: Reba Molina on 06-17-2025 Hemoglobin (Bld) [Mass/Vol] 12.4 g/dL 12.0-15.0 [facility] Immature granulocytes/100 WB C Auto (Bld)Ordered By: Reba Molina on 06-17-2025 Immature granulocytes/100 WBC (Bld) 0.300 % 0.0-0.9 [facility] Comment on above: IG% - Immature Granu locytes (promyelocytes, myelocytes and metamyelocytes) > 1% indicates that a LEFT SHIFT is Present. Laboratory - Chemistry and C hemistry - challengeOrdered By: Reba Molina on 06-17-2025 AST [Catalytic activity/Vol] 22 U/L <32 [facility] MCV (mean corpuscular volume ) determinationOrdered By: Reba Molina on 06-17-2025 MCV (RBC) [Entitic vol] 81.6 fL 81-99 [facility] Mean corpuscular hemoglobin (MCH) determinationOrdered By: Reba Molina on 06-17-2025 MCH (RBC) [Entitic mass] 25.1 pg Low 27.0-32.0 [facility] Mean corpuscular hemoglobin concentration (MCHC) determinationOrdered By: Reba Molina on 06-17-2025 MCHC (RBC) [Mass/Vol] 30.7 g/dL Low 32-36 [facility] Mean platelet volume determi nationOrdered By: Reba Molina on 06-17-2025 Platelet mean volume (Bld) [Entitic vol] 10.6 fL 6.2-12.0 [facility] Monocyte percentageOrdered B y: Reba Molina on 06-17-2025 Monocytes/100 WBC (Bld) 6.7 % 0-10 [facility] Neutrophil percentageOrdered By: Reba Molina on 06-17-2025 Neutrophils/100 WBC (Bld) 65.1 % 47-70 [facility] Nucleated red blood cell per centageOrdered By: Reba Molina on 06-17-2025 Nucleated RBC/100 WBC (Bld) [Ratio] 0 % 0-5 [facility] Platelet countOrdered By: Maribel Molina on 06-17-2025 Platelets (Bld) [#/Vol] 370 10*3/uL 150-450 [facility] Potassium measurement (mass/ volume)Ordered By: Reba Molina on 06-17-2025 Potassium (Unsp spec) [Mass/Vol] 4.1 mmol/L 3.3-5.1 [facility] RBC Auto (Bld) [#/Vol]Ordere d By: Reba Molina on 06-17-2025 RBC (Bld) [#/Vol] 4.95 10*6/uL 4.2-5.4 [facility] Serum creatinine measurement (mass/volume)Ordered By: Reba Molina on 06-17-2025 Creatinine [Mass/Vol] 0.75 mg/dL 0.70-1.20 [facility] Serum globulin measurementOr dered By: Reba Molina on 06-17-2025 Globulin (S) [Mass/Vol] 3.0 g/dL 2.2-4.2 [facility] Serum glucose measurement (m ass/volume)Ordered By: Reba Molina on 06-17-2025 Glucose [Mass/Vol] 91 mg/dL 70-99 [facility] Serum or plasma C reactive p rotein measurement (mass/volume)Ordered By: Reba Molina on 06-17-2025 CRP [Mass/Vol] 24.20 mg/L High 0.0-3.0 [facility] Serum or plasma alanine ramos otransferase (ALT) measurementOrdered By: Reba Molina on 06-17-2025 ALT [Catalytic activity/Vol] 18 U/L <35 [facility] Serum or plasma albumin blanka urement (mass/volume)Ordered By: Reba Molina on 06-17-2025 Albumin [Mass/Vol] 3.9 g/dL 3.4-4.8 [facility] Serum or plasma albumin/glob ulin mass ratioOrdered By: Reba Molina on 06-17-2025 Albumin/Globulin [Mass ratio] 1.3 {ratio} 0.9-2.4 [facility] Serum or plasma alkaline rome sphatase measurementOrdered By: Reba Molina on 06-17-2025 ALP [Catalytic activity/Vol] 100 U/L 35-104 [facility] Serum or plasma calcium blanka urement (mass/volume)Ordered By: Reba Molina on 06-17-2025 Calcium [Mass/Vol] 9.4 mg/dL 7.6-11.0 [facility] Serum or plasma urea nitroge n measurement (mass/volume)Ordered By: Reba Molina on 06-17-2025 Urea nitrogen [Mass/Vol] 14 mg/dL 4-19 [facility] Sodium levelOrdered By: Triny Molina on 06-17-2025 Sodium [Moles/Vol] 141 mmol/L 133-145 [facility] Total proteinOrdered By: Eri isshelley Molina on 06-17-2025 Protein [Mass/Vol] 6.9 g/dL 5.9-8.4 [facility] White blood cell (WBC) count Ordered By: Reba Molina on 06-17-2025 WBC (Bld) [#/Vol] 8.7 10*3/uL 4.4-11.0 [facility] E2on 03-07-2025 Estradiol Level 14.00 pg/mL Normal [facility] Comment on above: Result Comment: No te - New Reference Range in effect 20 Adult Female E2 Reference Ranges: Follicular phase 19.5 - 144.2 pg/mL Midcycle 63.9 - 356.7 pg/mL Luteal phase 55.8 - 214.2 pg/mL Post menopausal 0 - 33.2 pg/mL Performed By: #### E 2 #### [address] [address] Shoulder min 2 Viewson 11-21 Shoulder min 2 Views [facility] Imaging Services [address] [place], [place] [address] Shoulder min 2 Views MR#: [id number] Acct: [id number] Name: CLIFF MEIER #: [id number] : 1960 F 64 From: Gonzalez Mcadams MD PCP: Dr. Reba Molina MD Status: REG CLI Study: Shoulder min 2 Views Date of Exam: 11/21/24 Exam# [id number] Ordering Dr: Reba Molina [id number] STUDY: X-RAY - RIGHT SHOULDER REASON FOR [...] EST , CC: Dr. 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 Normal [facility] US PELVIS NON-OB COMPLETEon 10-17-2024 US PELVIS NON-OB COMPLETE ORIGINAL EXAMINATION: PELVIC [id number]/20/2024 5:21 pm Transabdominal COMPARISON: None TECHNIQUE: Transvaginal [...] 10/17/2024 9:56:59 AM Ordering Provider: ROSETTA Epperson [facility] MAMMOGRAM SCREENING BILAT ERAL W/TOMOon 10-16-2024 PA MAMMOGRAM SCREENING BILATERAL W/TIN ORIGINAL FROM: [place] [address] PROCEDURE FOR: CLIFF MEIER [address] [place], [place] [id number] Home: PID#: [id number] Exam#: [id number] : 1960 Age: 64 TO: ROSETTA OCHOA MD [address] [place] [address] Fax: NO FAX EXAMINATION: SCREENING DIGITAL BILATERAL [...] Continued screening with annual mammograms is recommended. Anthony Mendoza risk calculations, generated with the history provided, [...] addition to annual mammographic screening per the [employer]. BIRADS: BI-RADS: 1: Negative RECALL: 1 year screening RECALL TYPE: mammo LETTER SENT: Normal BI-RADS 1 and 2 Interpreted by: Reji Zhang MD Preliminary Report By: Reji Zhang MD Electronically signed By Reji Zhang MD Dictated Date: 10/16/2024 10:25:48 PM Prelim Date: 10/16/2024 10:28:30 PM Sign Date: 10/16/2024 10:28:30 PM Ordering Provider: ROSETTA OCHOA copy to: REBA MOLINA MD, ph: [phone], fax: [phone] [employer]: JERALD TOVAR RT(R)(M)(CT) letter sent: Normal BI-RADS 1 and 2 Mammogram BI-RADS: 1 Negative Normal [facility] Urine Cultureon 08-22-2024 [facility]RC Presumptive E. coli [place] Count 11,000-25,000 Presumptive E. coli: REACTION Ampicillin [...] TMP SMX Islt DENYS <=20 S Normal [facility] Comment on above: Performed By: #### M 100.2200 #### [facility] [address] [place], [address] CNOVon 06-25-2024 CNOV Office Visit (ORMDNA) CLIFF MEIER ([id number]) 1960 F Date Time Provider Department 06/25/24 2:00 PM EMMANUEL ROBB During your visit today, we recorded the following information about you: Emmanuel Robb MD 07/24/2024 9:21 AM Signed Emmanuel Robb MD Department of Orthopaedics Orthopaedics [address] [place] [address] Dept: [phone] June 25, 2024 CHIEF COMPLAINT: New and Knee Pain of the Left Knee and Left knee meniscus tear HPI Patient here for evaluation left knee pain. Patient states in December she hired a personal carer and had her press 190 pounds and felt a pop in her knee. [place] like knifes going through her knee. She went to her PCP and thought it was her back. She had done PT and made her knee pain worse. Seen her chiropractor and ordered an MRI that was done at [facility] in [place] on 04/11/24. Patient hand carried a copy of the MRI. She had x-rays also done at [facility]. She was unable to get a [...] and continue her light therapy. OBJECTIVE: Ms. 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 Normal [facility] Basophil percentageOrdered B y: Reba Molina on 03-28-2024 Basophil percentage < 10.0 IU/mL <15 [facility] No Panel InformationOrdered By: Reba Molina on 03-28-2024 Anti-Nuclear Antibody Screen Negative Negative [facility] Comment on above: Performed at: [facility] [address] [id number] Director: Ken Villegas PhD, Phone: [phone] Serum cyclic citrullinated p eptide IgG antibody assay (units/volume)Ordered By: Reba Molina on 03-28-2024 Cyclic citrullinated peptide IgG Qn 3 units 0-19 [facility] Comment on above: Negative <20 Weak po sitive 20 - 39 Moderate positive 40 - 59 Strong positive >59Performed at: [facility] [id number] Director: Ken Villegas PhD, Phone: [phone] 24 hour urine free cortisol measurement (mass/time)Ordered By: Derek Molina on 05-25-2023 Cortisol Free (24H U) [Mass/Time] 14 ug/24 hr 6-42 [facility] Comment on above: Performed at: [facility] [id number] [place], [place] [id number] Director: Gina Linares MD, Phone: [phone] Quantitative urine free herbert isol measurement (mass/volume)Ordered By: Derek Molina on 05-25-2023 Cortisol Free (U) [Mass/Vol] 7 ug/L Undefined [facility] Basophil percentageOrdered B y: Derek Molina on 05-23-2023 Chloride [Moles/Vol] 104 mmol/L 98-107 [facility] Cholesterol [Mass/Vol] 208 mg/dL <200 [facility] Comment on above: <200 mg/dL Desirable 200-240 mg/dL Borderline >240 mg/dL High Risk Glucose [Mass/Vol] 103 mg/dL 74-106 [facility] Comment on above: Fasting Glucose resu lt from 100 to 125 mg/dL suggests IMPAIRED HOMEOSTASIS per A.D.A. criteria. Potassium [Moles/Vol] 4.2 mmol/L 3.5-5.1 [facility] Sodium [Moles/Vol] 138 mmol/L 136-145 [facility] Triglyceride [Mass/Vol] 97 mg/dL <199 [facility] Comment on above: The drugs N-Acetylcy steine and Metamizole may falsely depress this assay.Serum Triglycerides Reference Interval Normal <150 mg/dL Borderline high 150 - 199 mg/dL High 200 - 499 mg/dL Very High > or = 500 mg/dL Erythrocyte sedimentation ra teOrdered By: Derek Molina on 05-23-2023 ESR (Bld) [Velocity] 11 mm/h 0-30 [facility] - Chemistry and C hemistry - challengeOrdered By: Derek Molina on 05-23-2023 CO2 [Moles/Vol] 26.0 mmol/L 21.0-32.0 [facility] Urea nitrogen/Creatinine [Mass ratio] 17.1 mg/mg 10-20 [facility] No Panel InformationOrdered By: Derek Molina on 05-23-2023 Estimated GFR (MDRD) Amer 84 mL/min >60 [facility] Comment on above: GFR Calc Estimated GFR (MDRD) Non-Af Amer 70 mL/min >60 [facility] Comment on above: Non- GFR Calc Serum or plasma calcium blanka urement (mass/volume)Ordered By: Derek Molina on 05-23-2023 Calcium [Mass/Vol] 9.3 mg/dL 8.5-10.1 [facility] Serum or plasma cholesterol in HDL measurement (mass/volume)Ordered By: Derek Molina on 05-23-2023 Cholesterol in HDL [Mass/Vol] 66 mg/dL >40 [facility] Comment on above: The drugs N-Acetylcy steine and Metamizole may falsely depress this assay. Reference Range HDL <40 mg/dL Low HDL Cholesterol HDL >or= 60 mg/dL High HDL Cholesterol Serum or plasma cholesterol in VLDL measurement (mass/volume)Ordered By: Derek Molina on 05-23-2023 Cholesterol in VLDL [Mass/Vol] 19 mg/dL 5-40 [facility] Serum or plasma cortisol josie surement (mass/volume)Ordered By: Derek Molina on 05-23-2023 Cortisol [Mass/Vol] 6.30 ug/dL 3.44-22.45 [facility] Comment on above: Adult (AM) 5.27 - 22 .45 ug/dL Adult (PM) 3.44 - 16.76 ug/dLPlease note revised CORTISOL reference range effective 2020. Serum or plasma creatinine m easurement (mass/volume)Ordered By: Derek Molina on 05-23-2023 Creatinine [Mass/Vol] 0.88 mg/dL 0.55-1.02 [facility] Comment on above: The validity of the calculated GFR & GFRAA in patients over 70 years has not been determined. Clinical correlation is essential. Serum or plasma low density lipoprotein (LDL) cholesterol measurement (mass/volume)Ordered By: Derek Molina on 05-23-2023 Cholesterol in LDL [Mass/Vol] 123 mg/dL 0-130 [facility] Serum or plasma urea nitroge n measurement (mass/volume)Ordered By: Derek Molina on 05-23-2023 Urea nitrogen [Mass/Vol] 15 mg/dL 7-18 [facility] Thin prep Papanicolaou smear with manual screeningOrdered By: Derek Molina on 05-23-2023 Thin prep Papanicolaou smear with manual screening 8 5-15 [facility] Whole blood hemoglobin A1c/t otal hemoglobin ratio (mass fraction)Ordered By: Derek Molina on 05-23-2023 HbA1c (Bld) [Mass fraction] 5.2 % 3.8-5.6 [facility] Comment on above: Normal < 5.7 % Predi abetic 5.7 - 6.4 % Diabetic >or= 6.5 % Please note range changes. Rest Room Attendant Cytology Reporton 2021 Rest Room Attendant Cytology Report . Pathology Reports Accession: Collected Date/Time: Received Date/Time: Pathologist: [id number] 09/19/2022 10:25 EDT 09/19/2022 18:00 EDT Rest Room Attendant Cytology Report SPECIMEN: Specimen Description: Liquid Prep [...] and evaluated with the assistance of the [employer] ThinPrep Test Imaging System. Pathology Reports Accession: Collected Date/Time: Received Date/Time: Pathologist: [id number] 09/19/2022 10:25 EDT 09/19/2022 18:00 EDT Electronically Signed by Pathology report verified by [facility] Screened by: GL Electronically signed by Dalia Rabago Sign-Out Date: 09/27/2022 13:11 Performing Lab: [facility], [address] [place] [address] Pathology Dept Disclaimer The Pap test is a screening test for cervical cancer. As evidenced by published data, it is subject to both inherent false negative and false positive results. Your patient's results should be interpreted in context with pertinent clinical history including gynecological examination. Normal [facility] ([place]) HPVon 09-27-2022 HPV Interp Normal [facility] [place] Comment on above: Order Comment: Order placed by AP_HPV_ORDER rule from [id number] Result Comment: High Risk HPV Typing: NEGATIVE [...] HPVN Performed By: #### H PV #### [address] [address] HPV Source Cervix Normal [facility] ([place]) Comment on above: Order Comment: Order placed by AP_HPV_ORDER rule from [id number] Performed By: #### H PV #### [address] [address] [place] MAMMOGRAM SCREENING BILAT ERAL W/TOMOon 09-19-2022 [place] MAMMOGRAM SCREENING BILATERAL W/TIN ORIGINAL FROM: [facility] [address] [place] [id number] PROCEDURE FOR: CLIFF MEIER [address] [place] [address] Home: PID#: [id number] Exam#: [id number] : 1960 Age: 62 TO: DANIEL WAYNE [employer]AD [employer] [address] [place] [address] Fax: NO FAX EXAMINATION: SCREENING DIGITAL BILATERAL [...] WAYNE copy to: REBA MOLINA MD, ph: [phone], fax: [phone] [employer]: CELIO ASHTON (R) (M) (CT) letter sent: Normal BI-RADS 1 and 2 Mammogram BI-RADS: 1 Negative Normal [facility] ([place]) CT SHOULDER W/O CONTRAST LEF Ton 11-18-2021 [...] Date: 11/18/2021 10:21:48 AM Ordering Provider: MALI GREY [facility] ([place]) Vital Signs Date Time Vital Sign Value Performing Clinician Vandana enriquez 10-01-2025 13:45-0500 Body height 163.8 cm Viola Junior LAB SUPPORT SERVICE TECH Work Phone: [facility] 10-01-2025 13:45-0500 Body mass index (BMI) [Ratio] 42.76 kg/m2 Viola Junior NP Work Phone: [facility] 10-01-2025 13:45-0500 Body weight 114.76 kg Viola Junior LAB SUPPORT SERVICE TECH Work Phone: [facility] 10-01-2025 13:45-0500 Diastolic blood pressure 90 mm[Hg] Viola Junior LAB SUPPORT SERVICE TECH Work Phone: [facility] 10-01-2025 13:45-0500 Systolic blood pressure 132 mm[Hg] Viola Junior LAB SUPPORT SERVICE TECH Work Phone: [facility] Encounters Encounter Date Encounter Type Care Provider Facility Start: 10-01-2025 End: 10-01-2025 Bamboo flowsheet Viola Junior LAB SUPPORT SERVICE TECH [facility] Start: 10-01-2025 End: 10-01-2025 Bamboo flowsheet Viola Junior LAB SUPPORT SERVICE TECH Work Phone: [facility] Start: 10-01-2025 End: 10-01-2025 Initial preventive medicine new patient 40-64yrs Viola Junior LAB SUPPORT SERVICE TECH Work Phone: [facility] Comment on above: Encounter for gyneco logical examination without abnormal finding (Primary Dx); Screening for human papillomavirus; Encounter for screening mammogram for breast cancer; Screening for colon cancer; Symptoms, such as flushing, sleeplessness, headache, lack of concentration, associated with the menopause; Vaginal dryness, menopausal Start: 10-01-2025 End: 10-01-2025 Patient encounter status Viola Junior LAB SUPPORT SERVICE TECH Work Phone: [facility] Work Phone: Start: 10-01-2025 End: 10-01-2025 ambulatory VIOLA JUNIOR Not Available Start: 08-31-2025 End: 08-31-2025 Emergency department patient visit DIDIER JENNIFER DO [facility] Start: 07-10-[address] Reba Molina [facility] -[facility] Start: 07-10-2025 ambulatory Reba Molina [facility] Start: 07-09-2025 End: 07-09-[address] Reba Molina MD Work Phone: -Laboratory [facility] Start: 07-09-2025 End: 07-09-[address] Reba Molina MD -Laboratory [facility] Start: 07-08-2025 End: 07-09-[address] Reba Molina MD Work Phone: -Cat Scan [facility] Start: 07-08-2025 End: 07-08-[address] Reba Molina MD -Cat Scan [facility] Work Phone: Start: 07-08-2025 End: 07-08-2025 ambulatory Reba Molina Facility:[facility] Start: 07-03-2025 End: 07-03-2025 ambulatory DANIEL WAYNE [employer] Facility:[facility] Start: 07-03-2025 End: 07-03-2025 Patient encounter procedure ROSETTA OCHOA MD [facility] Start: 06-17-2025 End: 06-17-[address] Reba Molina MD Work Phone: -Laboratory [facility] Start: 06-17-2025 End: 06-17-[address] Reba Molina MD -[facility] Start: 06-17-2025 End: 06-17-2025 ambulatory Reba Molina Facility:[facility] Start: 03-07-2025 End: 03-07-2025 ambulatory DANIEL WAYNE [employer] Facility:[facility] Start: 11-21-2024 End: 11-21-2024 ambulatory Reba Molina Facility:[facility] Start: 10-16-2024 End: 10-16-2024 ambulatory ROSETTA OCHOA MD Facility:[facility] Start: 10-16-2024 End: 10-16-2024 Patient encounter procedure ROSETTA OCHOA MD [facility] Start: 09-19-2024 ambulatory DANIEL WAYNE MARSHA[employer]HE Facility:[facility] Start: 09-19-2024 Encounter for gynecological examination (general) (routine) without abnormal findings DANIEL WAYNE [employer]SHA[employer] Facility:[facility] Start: 08-20-2024 End: 08-20-2024 ambulatory Reba Molina Facility:[facility] Start: 06-25-2024 End: 06-25-2024 ambulatory EMMANUEL ROBB Facility:[facility] Start: 06-25-2024 End: 06-25-2024 Patient encounter procedure Emmanuel Robb MD Work Phone: Orthopaedics Comment on above: Acute pain of left k nee (Primary Dx); Radiculopathy, lumbar region Start: 03-28-2024 End: 03-28-[address] Reba Molina Work Phone: [facility] Work Phone: Start: 03-28-2024 End: 03-28-[address] Reba Molina Work Phone: [facility] Start: 03-05-2024 End: 03-05-[address] Reba Molina Work Phone: [facility] Work Phone: Start: 03-05-2024 End: 03-05-[address] Reba Molina Work Phone: [facility] Work Phone: Start: 02-15-2024 Non-patient / Non-visit Dr. Maribel Molina Work Phone: [facility] Start: 02-15-2024 End: 02-15-[address] Derek Molina Work Phone: [facility] Work Phone: Start: 02-15-2024 End: 02-15-[address] Derek Molina Work Phone: [facility]-Cardiovascula r Services Work Phone: Start: 12-19-2023 End: 12-19-[address] Derek Molina Work Phone: [facility]-Outpatient Bone Densitometry Work Phone: Start: 05-25-2023 End: 05-25-2023 ambulatory [facility] Work Phone: Start: 05-25-2023 End: 05-25-2023 Patient encounter procedure [facility]-Laboratory, Specimen Work Phone: Start: 05-23-2023 End: 05-23-2023 ambulatory [facility] Work Phone: Start: 05-23-2023 End: 05-23-2023 Patient encounter procedure [facility] Start: 09-19-2022 End: 09-24-2022 ambulatory DANIEL WAYNEMERVAT LARSON-VERN Facility:B Start: 09-19-2022 End: 09-24-2022 Encounter for gynecological examination (general) (routine) without abnormal findings DANIEL WAYNE APRN-VERN Facility:[facility] Start: 09-19-2022 End: 09-23-2022 Outreach Lab DANIEL PALAFOXMERVAT BALDERRAMA [facility] Start: 09-19-2022 End: 09-20-2022 ambulatory DANIEL WAYNEMERVAT LARSON[employer] Facility:[facility] Start: 09-19-2022 End: 09-19-2022 Patient encounter procedure DANIEL WAYNE CONCHIS [facility] Start: 05-31-2022 End: 05-31-2022 Patient encounter [facility] Start: 11-18-2021 End: 11-19-[address] MALI GREY DO Facility:[facility] Start: 11-18-2021 End: 11-18-[address] MALI GREY DO [facility] Procedures Date Procedure Procedure Detail Performing Clinician Start: 07-08-2025 Computed tomography of abdomen and pelvis with contrast Dr. Reba Molina MD Work Phone: Start: 03-05-2024 X-ray of lumbosacral spine Dr. Reba Molina Work Phone: Start: 12-19-2023 Dual energy X-ray absorptiometry Dr. Derek Molina Work Phone: Start: 05-31-2022 Radiography of ankle Start: 05-31-2022 Plain X-ray of tibia and fibula Start: 05-16-2016 Lipid 1996 panel - S mickie or Plasma Emmanuel Robb MD Work Phone: Start: 05-13-2016 Colonoscopy Emmanuel saucedo MD Work Phone: Start: 04-07-2008 Microscopic observat ion [Identifier] in Cervix by Cyto stain Viola Junior NP Work Phone: section DANIEL MATA SON [employer]AD [employer] Cholecystectomy DANIEL JACOB ON LEAD [employer] Excision of colon DANIEL TIM LEAD [employer] Injury of ankle (disorder) S ONEL WAYNE [employer] Comment on above: Unfused then Fused Shoulder reverse/sta ndard adaptor prosthesis (physical object) DANIEL WAYNE [employer] Thumb joint stabilit y (observable entity) DANIEL WAYNE [employer] Plan of Treatment Date Care Activity Detail Author Start: 10-07-2030 Urine microalbumin profile DTaP,Tdap,Td Vaccine (3 - Td or Tdap) [facility] Start: 05-13-2026 Screening for malignant neoplasm of colon [facility] Start: 01-09-2026 End: 01-09-2026 Patient encounter procedure 01/09/2026 11:00 AM EST Office Visit [facility] [address] [place] [id number] Viola Junior NP [address] [place] [address] [facility] Start: 10-01-2025 End: 12-01-2026 DBT Breast - bilateral screening Bilateral screening mammogram with tomosynthesis Imaging Routine Encounter for screening mammogram for breast cancer Expected: 10/01/2025, Expires: 12/01/2026 [facility] Work Phone: Comment on above: Expected: 10/01/2025, Expires: Start: 10-01-2025 End: 10-01-2025 Patient encounter procedure 10/01/2025 2:00 PM EST Office Visit [facility] [address] [place] [id number] Viola Junior NP [address] [place] [address] Encounter for gynecological examination without abnormal finding (Primary Dx); Screening for human papillomavirus; Encounter for screening mammogram for breast cancer; Screening for colon cancer [facility] Comment on above: Encounter for gynecological examination without abnormal finding (Primary Dx); Screening for human papillomavirus; Encounter for screening mammogram for breast cancer; Screening for colon cancer Start: 10-01-2025 End: 10-01-2026 THINPREP TIS PAP AND HPV MRNA E6/E7 WITH REFLEX TO HPV 16,18/45 THINPREP TIS PAP AND HPV MRNA E6/E7 WITH REFLEX TO HPV 16,18/45 Pathology and Cytology Routine Encounter for gynecological examination without abnormal finding Screening for human papillomavirus Expected: 10/01/2025 (Approximate), Expires: 10/01/2026 [facility] Comment on above: Expected: 10/01/2025 (Approximate), Expi res: 10/01/2026 Start: 07-28-2025 COVID-19 Vaccine ( season) COVID-19 Vaccine () [facility] Start: 07-28-2025 Influenza vaccination Influenza Vaccine (#1) [facility] Start: 07-28-2024 Influenza vaccination Influenza Vaccine (#1) [facility] Start: 07-28-2023 Covid-19 Vaccine () Covid-19 Vaccine () [facility] Start: 05-16-2021 Lipid panel Lipid Screening [facility] Start: 04-24-2021 Screening for malignant neoplasm of cervix Cervical Cancer Screening [facility] Start: 2021 RSV Vaccine (1 - 1-dose 60+ series) RSV Vaccine (1 - 1-dose 60+ series) [facility] Start: 12-12-2017 Screening for malignant neoplasm of breast Mammogram Screening [facility] Start: 01-31-2017 Diabetes Screening Diabetes Screening [facility] Start: 01-02-2014 Shingrix Vaccine (2 of 3) Shingrix Vaccine (2 of 3) [facility] Start: 04-07-2011 Screening for malignant neoplasm of cervix [facility] Start: 2006 Screening for malignant neoplasm of colon [facility] Start: 2001 Screening for malignant neoplasm of breast Mammogram [facility] Start: 1991 Screening for malignant neoplasm of cervix HPV/Cotest [facility] Start: 1979 Annual PCP Team Chronic Disease Visit Annual PCP Team Chronic Disease Visit [facility] Start: 1979 Anxiety Screening Anxiety Screening [facility] Start: 1979 BP Controlled (<130/80) BP Controlled (<130/80) [facility] Start: 1979 Depression Screening Depression Screening [facility] Start: 1979 Hepatitis C screening Hepatitis C Screening [facility] Start: 1979 HIV screening HIV Screening [facility] Start: 1979 Spirometry Spirometry [facility] Start: 1961 Screening for malignant neoplasm of colon [facility] 17-Hydroxyprogestero ne [Mass/volume] in Serum or Plasma [facility] Androstenedione [Mas s/volume] in Serum or Plasma [facility] Cortisol Free [Mass/ volume] in 24 hour Urine [facility] Cortisol Free [Mass/ volume] in 24 hour Urine [facility] Cortisol Free [Mass/ volume] in Urine [facility] Cortisol Free [Mass/ volume] in Urine [facility] Dehydroepiandrostero ne sulfate (DHEA-S) [Mass/volume] in Serum or Plasma [facility] Testosterone Free [Mass/volume] in Serum or Plasma [facility] Immunizations Immunization Date Immunization Notes Care Provider Aden hearn 08-20-2021 SARS-CoV-2 mRNA (tozinameran) vaccine DANIEL WAYNE [employer] [facility] Comment on above: Result Comment: 2021: [id number] 07-30-2021 SARS-CoV-2 mRNA (tozinameran) vaccine DANIEL WAYNE [employer] [facility] Comment on above: Result Comment: 2021: [id number] 10-07-2020 tetanus toxoid, redu magdalena diphtheria toxoid, and acellular pertussis vaccine, adsorbed DANIEL WAYNE [employer] [facility] 11-22-2016 pneumococcal polysaccharide vaccine, 23 valent DANIEL WAYNE [employer] [facility] 11-22-2016 tetanus toxoid, redu magdalena diphtheria toxoid, and acellular pertussis vaccine, adsorbed DANIEL WAYNE [employer] [facility] 11-22-2016 influenza virus vacc ine, unspecified formulation Emmanuel Robb MD Work Phone: [facility] 11-07-2013 zoster vaccine, live Emmanuel Robb MD Work Phone: [facility] 11-28-2006 tetanus and diphther ia toxoids, adsorbed, preservative free, for adult use (2 Lf of tetanus toxoid and 2 Lf of diphtheria toxoid) Emmanuel Robb MD Work Phone: [facility] Work Phone: Payers Date Payer Category Payer Self-pay [id number] 2021 Private Health Insurance [id number] 2019 Unknown MMO MMO [employer] PPO [id number] 2019-Present [phone] [address] [place] [address] PPO [id number] 2014 Unknown [id number] 1960 Unknown [id number] 1960 Unknown [id number] [id number] 1960 Unknown [id number] [id number] 1960 Unknown [id number] 2.16.840.1.909619.3.579.2.6 1960 Unknown [id number] 2.16.840.1.540852.3.579.2.6 1960 Unknown [id number] 2.16.840.1.243736.3.579.2.6 1960 Unknown [id number] 2.16.840.1.210421.3.579.2.6 1960 Unknown [id number] 2.16.840.1.640760.3.579.2.6 1960 Unknown [id number] 2.16.840.1.380929.3.579.2.1 259 Unknown [id number] 2.16.840.1.579523.3.579.2.4 62 Unknown [id number] 2.16.840.1.452249.3.579.2.4 62 Unknown [id number] 2.16.840.1.863571.3.579.2.4 62 Unknown [id number] 2.16.840.1.625597.3.579.2.4 62 Unknown [id number] 2.16.840.1.948517.3.579.2.4 63 Unknown [id number] [id number] 62 Social History Date Type Detail Facility Unknown if ever smoked [facility] Start: 1960 Sex Assigned At Female [facility] Start: 09-19-2022 End: 10-01-2025 Tobacco smoking status Never smoked tobacco (finding) [facility] Start: 09-01-2011 End: 10-01-2025 Tobacco use and exposure Smokeless tobacco non-user [facility] Start: 07-24-2024 End: 10-01-2025 Alcoholic beverage intake Current drinker of alcohol (finding) [facility] Start: 07-24-2024 End: 10-01-2025 History of Social function [facility] Start: 07-24-2024 End: 10-01-2025 Tobacco use panel [facility] Start: 09-25-2025 Adult Depression Screening Assessment 0 [facility] Start: 10-26-2011 Alcohol Comment 1-3 times per month [facility] Start: 1960 Sex assigned at Not on file [facility] Start: 10-01-2025 [facility] Work Phone: Sexual Orientation [facility] Start: 01-17-2019 Sex Female (finding) [facility] Start: 09-26-2025 Gender identity Identifies as female gender (finding) [facility] Medical Equipment Procedure Code Equipment Code Equipment Origin al Text Equipment Identifier Dates Lox-Iv-A-Kind Implant - [id number] Start: 11-02-2011 Comment on above: Description: Sara Celeste crew 2.0 X 16 Wire Fix .045in 6in Krsh Ss - [id number] Start: 11-02-2011 Comment on above: Description: K-Wire Clinical Notes 09-19-2022 to 10-02-2025 [facility] Patient Education - Viloa Junior NP - 10/02/2025 11:45 AM ESTNOMS Patient Education - Viola Junior NP - 10/02/2025 11:45 AM Kevin Junior NP - 10/01/2025 2:00 PM ESTPatient Instructions Note Date & Type Note Facility 10-02-2025 Note Formatting of this n ote is different from the original. Images from the original note were not included. [id number] Learning About Healthy Eating During Menopause Why is healthy eating important during menopause? Healthy eating is an important part of caring for yourself during menopause. It gives your body nutrients you need, like calcium and vitamin D. It helps you stay at a healthy weight. And it can reduce your risk for health problems that are more common after menopause, such as heart disease and osteoporosis. Eating healthy during menopause Here are some things you can do to eat healthy during menopause. ? Eat a heart-healthy diet. Choose foods like vegetables, fruits, nuts, beans, fish, and whole grains. Limit foods that have a lot of salt, fat, and sugar. ? Choose foods that have a lot of calcium. These include milk, cheese, yogurt, and calcium-fortified orange juice, soy milk, and tofu. Other sources of calcium include canned sardines, canned salmon with bones, and leafy green vegetables such as broccoli, kale, and [place] Island[place] cabbage. Between the ages of 19 and 50, you need 1,000 milligrams (mg) of calcium a day. At 51 and older, you need 1,200 mg a day. ? Eat foods that are good sources of vitamin D. Vitamin D helps your body use calcium. Foods that have vitamin D include salmon, tuna, and mackerel. Vitamin D-fortified foods like milk, soy milk, orange juice, and cereal are also good sources. Between the ages of 19 and 70, you need 600 international units (IU) of vitamin D a day. At age 71 and older, you need 800 IU a day. ? Talk to your doctor about taking a calcium and vitamin D supplement. It may be a good idea for you if you don't get enough of these nutrients from the foods you eat. ? Limit caffeine. Caffeine can cause sleep problems. It can also make you feel anxious. If you are bothered by symptoms like these, pay attention to how much caffeine you are getting. Caffeine is found in coffee, tea, energy drinks, and foods and drinks that contain chocolate. ? Limit your intake of alcohol. Drinking may make menopause symptoms worse. Follow-up care is a meng part of your treatment and safety. Be sure to make and go to all appointments, and call your doctor if you are having problems. It's also a good idea to know your test results and keep a list of the medicines you take. Current as of: October 23, 2023 Content Version: 14.0 Care instructions adapted under license by your healthcare professional. If you have questions about a medical condition or this instruction, always ask your healthcare professional. [employer] disclaims any warranty or liability for your use of this information. [employer], [employer]. [facility] 10-02-2025 Note Formatting of this n ote is different from the original. Images from the original note were not included. [id number] Learning About Healthy Eating During Menopause Why is healthy eating important during menopause? Healthy eating is an important part of caring for yourself during menopause. It gives your body nutrients you need, like calcium and vitamin D. It helps you stay at a healthy weight. And it can reduce your risk for health problems that are more common after menopause, such as heart disease and osteoporosis. Eating healthy during menopause Here are some things you can do to eat healthy during menopause. ? Eat a heart-healthy diet. Choose foods like vegetables, fruits, nuts, beans, fish, and whole grains. Limit foods that have a lot of salt, fat, and sugar. ? Choose foods that have a lot of calcium. These include milk, cheese, yogurt, and calcium-fortified orange juice, soy milk, and tofu. Other sources of calcium include canned sardines, canned salmon with bones, and leafy green vegetables such as broccoli, kale, and [place] cabbage. Between the ages of 19 and 50, you need 1,000 milligrams (mg) of calcium a day. At 51 and older, you need 1,200 mg a day. ? Eat foods that are good sources of vitamin D. Vitamin D helps your body use calcium. Foods that have vitamin D include salmon, tuna, and mackerel. Vitamin D-fortified foods like milk, soy milk, orange juice, and cereal are also good sources. Between the ages of 19 and 70, you need 600 international units (IU) of vitamin D a day. At age 71 and older, you need 800 IU a day. ? Talk to your doctor about taking a calcium and vitamin D supplement. It may be a good idea for you if you don't get enough of these nutrients from the foods you eat. ? Limit caffeine. Caffeine can cause sleep problems. It can also make you feel anxious. If you are bothered by symptoms like these, pay attention to how much caffeine you are getting. Caffeine is found in coffee, tea, energy drinks, and foods and drinks that contain chocolate. ? Limit your intake of alcohol. Drinking may make menopause symptoms worse. Follow-up care is a meng part of your treatment and safety. Be sure to make and go to all appointments, and call your doctor if you are having problems. It's also a good idea to know your test results and keep a list of the medicines you take. Current as of: October 23, 2023 Content Version: 14.0 Care instructions adapted under license by your healthcare professional. If you have questions about a medical condition or this instruction, always ask your healthcare professional. [employer], [employer] disclaims any warranty or liability for your use of this information. [employer], [employer]. [facility] 10-02-2025 Miscellaneous Notes Images from the original note were not included. [id number] Learning About Healthy Eating During Menopause Why is healthy eating important during menopause? Healthy eating is an important part of caring for yourself during menopause. It gives your body nutrients you need, like calcium and vitamin D. It helps you stay at a healthy weight. And it can reduce your risk for health problems that are more common after menopause, such as heart disease and osteoporosis. Eating healthy during menopause Here are some things you can do to eat healthy during menopause. ? Eat a heart-healthy diet. Choose foods like vegetables, fruits, nuts, beans, fish, and whole grains. Limit foods that have a lot of salt, fat, and sugar. ? Choose foods that have a lot of calcium. These include milk, cheese, yogurt, and calcium-fortified orange juice, soy milk, and tofu. Other sources of calcium include canned sardines, canned salmon with bones, and leafy green vegetables such as broccoli, kale, and [place] Island[place] cabbage. Between the ages of 19 and 50, you need 1,000 milligrams (mg) of calcium a day. At 51 and older, you need 1,200 mg a day. ? Eat foods that are good sources of vitamin D. Vitamin D helps your body use calcium. Foods that have vitamin D include salmon, tuna, and mackerel. Vitamin D-fortified foods like milk, soy milk, orange juice, and cereal are also good sources. Between the ages of 19 and 70, you need 600 international units (IU) of vitamin D a day. At age 71 and older, you need 800 IU a day. ? Talk to your doctor about taking a calcium and vitamin D supplement. It may be a good idea for you if you don't get enough of these nutrients from the foods you eat. ? Limit caffeine. Caffeine can cause sleep problems. It can also make you feel anxious. If you are bothered by symptoms like these, pay attention to how much caffeine you are getting. Caffeine is found in coffee, tea, energy drinks, and foods and drinks that contain chocolate. ? Limit your intake of alcohol. Drinking may make menopause symptoms worse. Follow-up care is a meng part of your treatment and safety. Be sure to make and go to all appointments, and call your doctor if you are having problems. It's also a good idea to know your test results and keep a list of the medicines you take. Current as of: October 23, 2023 Content Version: 14.0 Care instructions adapted under license by your healthcare professional. If you have questions about a medical condition or this instruction, always ask your healthcare professional. [employer] disclaims any warranty or liability for your use of this information. [employer]. documented in this encounter [facility] 10-01-2025 History of Present illness Narrative Chief Complaint Patient presents with Annual Exam VC for AI note, no slip dumper Has been on multiple estrogen preparations in past without complete relief. Just went on weight loss medication to see if weight loss will help with fatigue and over all unwell feeling. Reports less energy, and brain fog. Reports that does not feel that current [employer]ORATING [employer]ULT[employer] provider is listening. Reports considering testosterone replacement. Reports has difficulties with exams. HPI: History of Present Illness Results Last pap: 2007 Last mammogram:09/2024 Colon Cancer Screening: Yes 04/2016 History: Medical History[1] Surgical History[2] Family History[3] Social History[4] Allergies: Allergies[5] Medications: Medications Ordered Prior to Encounter[6] ROS: Visit Vitals BP 132/90 (BP Location: Left arm, Patient Position: Sitting, BP Cuff Size: Large adult) Ht 5' 4.5 Wt 253 lb LMP (LMP Unknown) BMI 42.76 kg/m OB Status Postmenopausal Smoking Status Never BSA 2.29 m Physical Exam Vitals and nursing note reviewed. Fruit Canner present: declined. Constitutional: Appearance: Normal appearance. She is obese. Cardiovascular: Rate and Rhythm: Normal rate and regular rhythm. Pulses: Normal pulses. Heart sounds: Normal heart sounds. Pulmonary: Effort: Pulmonary effort is normal. Breath sounds: Normal breath sounds. Chest: Breasts: Breasts are symmetrical. Right: Normal. Left: Normal. Abdominal: General: Bowel sounds are normal. Palpations: Abdomen is soft. Genitourinary: General: Normal vulva. Vagina: Normal. Cervix: Normal. Uterus: Normal. Adnexa: Right adnexa normal and left adnexa normal. Comments: Pap done. Small speculum used. Musculoskeletal: General: Normal range of motion. Cervical back: Normal range of motion and neck supple. Lymphadenopathy: Upper Body: Right upper body: No axillary adenopathy. Left upper body: No axillary adenopathy. Skin: General: Skin is warm and dry. Neurological: General: No focal deficit present. Mental Status: She is alert and oriented to person, place, and time. Psychiatric: Mood and Affect: Mood normal. Behavior: Behavior normal. Thought Content: Thought content normal. Judgment: Judgment normal. Assessment and Plan: Chritsi was seen today for annual exam. Diagnoses and all orders for this visit: Encounter for gynecological examination without abnormal finding (Primary) - THINPREP TIS PAP AND HPV MRNA E6/E7 WITH REFLEX TO HPV 16,18/45; Future - THINPREP TIS PAP AND HPV MRNA E6/E7 WITH REFLEX TO HPV 16,18/45 Screening for human papillomavirus - THINPREP TIS PAP AND HPV MRNA E6/E7 WITH REFLEX TO HPV 16,18/45; Future - THINPREP TIS PAP AND HPV MRNA E6/E7 WITH REFLEX TO HPV 16,18/45 Encounter for screening mammogram for breast cancer - Bilateral screening mammogram with tomosynthesis; Future Screening for colon cancer Symptoms, such as flushing, sleeplessness, headache, lack of concentration, associated with the menopause Assessment & Plan Health maintenance: - Pap guidelines reviewed and pap done. - Importance of mammograms and order done. - Up to date for colonoscopy. Menopause symptoms: - Options for observation, OTC meds, SSRI/SSNI, progesterone, estrogen and Veozoh. Pros and cons, risks and benefits discussed. - Reviewed options for testosterone compounding with Dr Adam. - Plan to increase Prometrium to 200 mg nightly. Will portal update. - Reports has supply at home currently. - Ok for trial of over the counter DHEA - Plan to continue weight loss injections with primary care provider as planned. Vaginal dryness: - Plan to continue vaginal estrogen at this time. Discussed good diet, weight bearing exercises, calcium, vitamin d. Follow up One year for annual. 3 months. [1] Past Medical History: Diagnosis Date Asthma (HCC) 10/01/2025 Essential hypertension with goal blood pressure less than 140/90 03/30/2016 Irritable larynx syndrome 11/02/2015 Lichen sclerosus Menopause ovarian failure Obesity 10/01/2025 MARCELINO on CPAP 06/24/2013 PSG done 05/24/2013 AHI 26 titration done 06/24/2013 CPAP @ [address] [place] [address] Ovarian cyst [2] Past Surgical History: Procedure Laterality Date ANKLE SURGERY Right SECTION, LOW TRANSVERSE 12/29/1999 CHOLECYSTECTOMY ENDOMETRIAL ABLATION SHOULDER SURGERY Left THUMB ARTHROSCOPY Right [3] Family History Problem Relation Name Age of Onset Rheum arthritis Mother Antonietta Osteoarthritis Mother Antonietta Hypertension Mother Antonietta Hypertension Father Giovany Asthma Brother Kobi Heart failure Mother's Brother Abdullahi Heart failure Maternal Grandmother Omayra 70 - 79 Diabetes Maternal Grandfather Violeta Breast cancer Neg Hx Ovarian cancer Neg Hx [4] Social History Tobacco Use Smoking status: Never Smokeless tobacco: Never Vaping Use Vaping status: Never Used Substance Use Topics Alcohol use: Yes Alcohol/week: 1.0 standard drink of alcohol Types: 1 Glasses of wine per week Drug use: Never [5] Allergies Allergen Reactions Erythromycin Anaphylaxis, Hives and Shortness of breath Hydromorphone Shortness of breath [6] Current Outpatient Medications on File Prior to Visit Medication Sig Dispense Refill betamethasone dipropionate 0.05 % cream 1 (ONE) APPLICATION TWICE A DAY TO AFFECTED AREAS clobetasol (Temovate) 0.05 % cream APPLY A THIN FILM 2 TIMES AWEEK estradiol (Divigel) gel Place 0.5 mg on the skin Daily hydroCHLOROthiazide (HYDRODiuril) 25 MG tablet Take 25 mg by mouth Daily progesterone 100 MG capsule Take 100 mg by mouth at bedtime Tirzepatide 2.5 MG/0.5ML solution auto-injector Inject under the skin traMADol (Ultram) 50 MG tablet Turmeric 500 MG capsule 0 Refill(s) [DISCONTINUED] dicyclomine (Bentyl) 20 MG tablet TAKE 1 TABLET BY MOUTH 4 TIMES A DAY FOR 7 DAYS [DISCONTINUED] nitrofurantoin, macrocrystal-monohydrate, (Macrobid) 100 MG capsule Take 100 mg by mouth Daily [DISCONTINUED] predniSONE (Deltasone) 20 MG tablet TAKE 2 TABLETS BY MOUTH FOR 3 DAYS-THEN 1 TABLET BY MOUTH FOR 4 DAYS [DISCONTINUED] Turmeric (QC Tumeric Complex) 500 MG capsule No current facility-administered medications on file prior to visit. documented in this encounter [facility] 10-01-2025 Instructions Viola Junior NP - 10/01/2025 2:00 PM EST Encourage good diet, weight bearing exercises, calcium and vitamin d. Reviewed pap, mammogram guidelines. documented in this encounter [facility] 08-31-2025 Hospital Discharge instructions Patient Education 08/31/2025 17:21:23 Contact Dermatitis Contact Dermatitis Contact dermatitis is a skin rash caused by something that touches the skin and makes it irritated and inflamed. Your skin may be red, swollen, dry, and may be cracked. Blisters may form and ooze. The rash will itch. Contact dermatitis can form on the face and neck, backs of hands, forearms, genitals, and lower legs. People can get contact dermatitis from lots of sources. These include: Plants such as poison agueda, oak, or sumac Chemicals in hair dyes and rinses, soaps, solvents, waxes, fingernail guatemalan, and deodorants Jewelry or watchbands made of nickel Contact dermatitis is not passed from person to person. Talk with your healthcare provider about what may have caused the rash. A type of allergy testing called patch testing may be used to discover what you are allergic to. You will need to avoid the source of your rash in the future to prevent it from coming back. Treatment is done to relieve itching and prevent the rash from coming back. The rash should go away in a few days to a few weeks. Home care Your healthcare provider may prescribe medicine to relieve swelling and itching. Follow all instructions when using these medicines. General care: Avoid anything that heats up your skin, such as hot showers or baths, or direct sunlight. This can make itching worse. Apply cold compresses to soothe your sores to help relieve your symptoms. Do this for 30 minutes 3 to 4 times a day. You can make a cold compress by soaking a cloth in cold water. Squeeze out excess water. You can add colloidal oatmeal to the water to help reduce itching. For severe itching in a small area, apply an ice pack wrapped in a thin towel. Do this for 20 minutes 3 to 4 times a day. You can also try wet dressings. One way to do this is to wear a wet piece of clothing under a dry one. Wear a damp shirt under a dry shirt if your upper body is affected. This can relieve itching and prevent you from scratching the affected area. You can also help relieve large areas of itching by taking a lukewarm bath with colloidal oatmeal added to the water. Use hydrocortisone cream for redness and irritation, unless another medicine was prescribed. You can also use benzocaine anesthetic cream or spray. Calamine lotion can also relieve mild symptoms. Use oral diphenhydramine to help reduce itching. You can buy this antihistamine at drug and grocery stores. It can make you sleepy, so use lower doses during the daytime. Or you can use loratadine. This is an antihistamine that will not make you sleepy. Do not use diphenhydramine if you have glaucoma or have trouble urinating due to an enlarged prostate. If a plant causes your rash, make sure to wash your skin and the clothes you were wearing when you came into contact with the plant. This is to wash away the plant oils that gave you the rash and prevent more or worse symptoms. Stay away from the substance or object that causes your symptoms. If you can t avoid it, wear gloves or some other type of protection. Follow-up care Follow up with your healthcare provider, or as advised. When to seek medical advice Call your healthcare provider right away if any of these occur: Spreading of the rash to other parts of your body Severe swelling of your face, eyelids, mouth, throat or tongue Trouble urinating due to swelling in the genital area Fever of 100.4 F (38 C) or higher Redness or swelling that gets worse Pain that gets worse Foul-smelling fluid leaking from the skin Yellow-brown crusts on the open blisters [phone] [employer]. [address] [place] [address]87. All rights reserved. This information is not intended as a substitute for professional medical care. Always follow your healthcare professional's instructions. Follow Up Care 08/31/2025 17:05:56 With:Go to emergency room if symptoms worsen Address:Unknown When:2-4 days With:REBA MOLINA MD Address: [address] [phone] [phone] When:2-4 days [facility] 08-31-2025 Emergency department Discharge summary Discharge Instructions Thank you for allowing [facility] to assist you with your healthcare needs. The following is important discharge information regarding your hospital visit. Diagnosis from Today's Visit Rash What to Do Next Instructions from Your Care Team Take prednisone in the possibility of allergic reaction and hard to say otherwise may take Benadryl. Follow-up with your primary care provider. Return emergency department if experience worsening symptoms or any other care concern. No qualifying data available. Post Acute Orders No qualifying data available. You Need to Schedule the Following Appointments Follow Up with Go to emergency room if symptoms worsen When:Within 2-4 days Follow Up with REBA MOLINA MD When:Within 2-4 days Where:[address] [place] [address] [phone] Allergies Dilaudid SOB, difficulty moving, hematuria erythromycin anaphylaxis Medications Please ask your primary doctor or pharmacist before taking any other medication not listed, including over the counter drugs, herbal medications, vitamins and or supplements as they may interact with your home medications. What How Much When Why Instructions Last Dose New predniSONE (predniSONE 50 mg oral tablet) 1 tab(s) by mouth Once a day Duration: 5 Days Take with food Printed Prescription Unchanged albuterol (Albuterol (Eqv-Proventil HFA) 90 mcg/ inh inhalation aerosol) INHALE 2 PUFFS 4 TIMES A DAY NEEDED FOR COUGH Unchanged clobetasol topical (Clobetasol (Eqv-Temovate) 0.05% topical cream) See instructions Lichen sclerosus apply a thin film twice a week. Unchanged clobetasol topical (Temovate 0.05% topical cream) 1 application Topical Once a day Well woman exam Screening for breast cancer Lichen sclerosus BMI 45.0-49.9, adult apply a thin film daily for a week then 2x/ week Unchanged estradiol (Divigel 1 mg/ packet (0.1%) transdermal gel) 1 Packet(s) Transdermal Once a day Menopausal symptoms apply to clean, dry, intact skin on right or left upper thigh. rotate thighs daily Unchanged estradiol topical (Estrace Vaginal 0.1 mg/ g vaginal cream) 1 Applicatorful Vaginal Twice a week Well woman exam Screening for breast cancer Unchanged herbal/ nutritional product (turmeric 500 mg oral capsule) Unchanged hydroCHLOROthiazide (hydroCHLOROthiazide 25 mg oral tablet) 1 tab(s) by mouth Once a day Unchanged Misc Medication (PPQ mitochondrial supple) Unchanged progesterone (progesterone 100 mg oral capsule) 1 cap by mouth Once a day Please take this list to your next doctor s visit. Bring all medications you take, including over the counter medications, herbals and other supplements with you to your doctor s visit. Patients and families are reminded to discard old lists and to update any records with all medication providers or retail pharmacies. Education Materials Contact Dermatitis Contact dermatitis is a skin rash caused by something that touches the skin and makes it irritated and inflamed. Your skin may be red, swollen, dry, and may be cracked. Blisters may form and ooze. The rash will itch. Contact dermatitis can form on the face and neck, backs of hands, forearms, genitals, and lower legs. People can get contact dermatitis from lots of sources. These include: Plants such as poison agueda, oak, or sumac Chemicals in hair dyes and rinses, soaps, solvents, waxes, fingernail guatemalan, and deodorants Jewelry or watchbands made of nickel Contact dermatitis is not passed from person to person. Talk with your healthcare provider about what may have caused the rash. A type of allergy testing called patch testing may be used to discover what you are allergic to. You will need to avoid the source of your rash in the future to prevent it from coming back. Treatment is done to relieve itching and prevent the rash from coming back. The rash should go away in a few days to a few weeks. Home care Your healthcare provider may prescribe medicine to relieve swelling and itching. Follow all instructions when using these medicines. General care: Avoid anything that heats up your skin, such as hot showers or baths, or direct sunlight. This can make itching worse. Apply cold compresses to soothe your sores to help relieve your symptoms. Do this for 30 minutes 3 to 4 times a day. You can make a cold compress by soaking a cloth in cold water. Squeeze out excess water. You can add colloidal oatmeal to the water to help reduce itching. For severe itching in a small area, apply an ice pack wrapped in a thin towel. Do this for 20 minutes 3 to 4 times a day. You can also try wet dressings. One way to do this is to wear a wet piece of clothing under a dry one. Wear a damp shirt under a dry shirt if your upper body is affected. This can relieve itching and prevent you from scratching the affected area. You can also help relieve large areas of itching by taking a lukewarm bath with colloidal oatmeal added to the water. Use hydrocortisone cream for redness and irritation, unless another medicine was prescribed. You can also use benzocaine anesthetic cream or spray. Calamine lotion can also relieve mild symptoms. Use oral diphenhydramine to help reduce itching. You can buy this antihistamine at drug and grocery stores. It can make you sleepy, so use lower doses during the daytime. Or you can use loratadine. This is an antihistamine that will not make you sleepy. Do not use diphenhydramine if you have glaucoma or have trouble urinating due to an enlarged prostate. If a plant causes your rash, make sure to wash your skin and the clothes you were wearing when you came into contact with the plant. This is to wash away the plant oils that gave you the rash and prevent more or worse symptoms. Stay away from the substance or object that causes your symptoms. If you can t avoid it, wear gloves or some other type of protection. Follow-up care Follow up with your healthcare provider, or as advised. When to seek medical advice Call your healthcare provider right away if any of these occur: Spreading of the rash to other parts of your body Severe swelling of your face, eyelids, mouth, throat or tongue Trouble urinating due to swelling in the genital area Fever of 100.4 F (38 C) or higher Redness or swelling that gets worse Pain that gets worse Foul-smelling fluid leaking from the skin Yellow-brown crusts on the open blisters [phone] [employer]. [address] [place] [address], [place] [address]. All rights reserved. This information is not intended as a substitute for professional medical care. Always follow your healthcare professional's instructions. Additional Information VACCINATE! IT SAVES LIVES! Members of the community who have not yet received the COVID-19 vaccine and would like to receive it can visit one of [facility] vaccine clinics. There are many vaccine clinic locations within the State. For locations and available times, please visit [email or web address] It is important to note that some COVID mobile vaccine clinics are held outdoors and may be canceled in rainy or stormy conditions. To learn more about pediatric vaccinations (ages 5-11), we invite you to visit the [facility] webpage. [email or web address] To learn more about the COVID-19 vaccine, we invite you to visit the CDC website for a list of frequently asked questions. https://www.cdc.gov/coronavirus/2 019-ncov/vaccines/faq.html [email or web address] Patient Portal Access Instructions: Stay connected with your healthcare team and access your personal medical information anytime with the [email or web address] Patient Portal. If you would like a full copy of your medical records please contact the [facility] Medical Records Department Monday through Monday between 8a.m. and 4:30p.m. Please follow the directions below to access the portal: 1.Access the email account you provided upon registration to the hospital.2.Look for an invitation email from [facility].3.Open the email and access the invitation link: Accept Invitation to [email or web address].Fill in the required martinez to create your account. To access your account, visit [email or web address] or scan the QR code above. Click the blue button labeled Access Patient Portal and then log in with the username and password that you created in the steps above. You can then view a summary of results, a summary of your visits, and the ability to download your summaries to your computer or send the information securely to a physician. Remember that your healthcare information is confidential, so carefully consider who you will allow to register on the [email or web address] Patient Portal for access to your information. You can also access the [email or web address] Patient Portal on the Last.fm. Simply click on Health Records under Health Data and then click on the [employer] logo. HOW TO SAFELY DISPOSE OF PRESCRIPTION MEDICATIONS Please use one of the following methods to safely dispose of your unused medications. 1.Use a drug disposal kit: the drug disposal pouch allows you to safely discard your old and unused drugs. Ask your nurse to give you one when you are discharged.2.Visit a local take-back location: Many local pharmacies and police departments have programs that collect old and unwanted prescription drugs. Call your local pharmacy or go to http://[employer].NeuroVista/8N9Zz8h to find one close to you.3.Make use of household items: Use cat litter or old coffee grounds to dispose medications if other options are not available. Mix your drugs with these household products, seal them in an airtight container and throw it into the garbage. Call [facility]: [phone] to be sure your drugs can be disposed of in this way. Some medicines may require a different approach.4.Never flush your medications down the toilet. IF YOU HAVE BEEN PRESCRIBED AN OPIOIDS FOR PAIN If you have been prescribed an opioid (such as hydrocodone, oxycodone or morphine), it is critical to understand the possible side effects and risks of opioid pain medications. Even when taken as directed, opioids can have several side effects including: Tolerance, meaning you might need to take more of a medication for the same pain relief. Nausea, vomiting and/or constipation. Sleepiness, dizziness, dry mouth, confusion, depression or itching. Physical dependence, meaning you have withdrawal symptoms when a medication is stopped ? this can develop within a few days. KNOW YOUR RESPONSIBILITIES It is important to know exactly how much and how often to take the opioid pain medications you are prescribed. Never take opioids in higher amounts or more often than prescribed. Do not combine opioids with alcohol or other drugs that cause drowsiness, such as benzodiazepines, also known as benzos, including diazepam and alprazolam, muscle relaxants or sleep aids. Never sell or share prescription opioids. This is illegal. Store opioids in a secure place and out of reach of others (including children, family, friends and visitors). The last page(s) of this document has been signed and retained as a CHART COPY Signatures Patient Education Materials Contact Dermatitis Medication Leaflets My discharge plan and instructions have been reviewed and explained to me and IJEWELL BEVERLY A understand my current condition and have read and understand these discharge instructions. I have received a written copy of the plan/instructions. If I have questions, I am aware that I should contact my doctor. Patient/Roll Bucker Signature: Date/Time: Relationship to Patient: ____ Witness Name/Signature: Date/Time: [facility] 07-08-2025 Radiology Diagnostic study note [facility] Imaging Services [address] [place] [place], [place] [address] Abdomen/Pelvis WITH Contrast MR#: [id number] Acct: [id number] Name: CLIFF MEIER Rep #: [id number] : 1960 F 65 From: Dwight Armstrong MD PCP: Dr. Reba Molina MD Status: REG CLI Study:Abdomen/Pelvis WITH Contrast Date of Ex am: 07/08/25 Exam# [id number] Ordering Dr: Adriana Molina MD PROCEDURE: ABDOMEN/PELVIS WITH CONTRAST 07/08/2025 REASON FOR EXAM: COLITIS Hematuria. Right flank pain. History of prior colectomy. TECHNIQUE: ABDOMEN/PELVIS WITH CONTRAST Coronal and Sagittal reconstruction series were provided. CONTRAST: Isovue-300 VOLUME: 100 mL One or more dose reduction techniques were used (e.g., Automated exposure control, adjustment of the mA and/or kV according to patient size, use of iterative reconstruction technique. RADIATION DOSE SUMMARY: CTDlvol: 17.09 mGy DLP: 1170.75 mGycm COMPARISON: None FINDINGS: Lung bases: Lung bases are clear. Liver: Diffuse fatty infiltration. Gallbladder: Surgically absent. Spleen: Normal size. Pancreas: Normal size without evidence of mass surrounding inflammation or ductal dilation. Adrenals: There is a 26.8 mm hypodense nodule in the right adrenal glands suggestive of either an adenoma or myelolipoma. Kidneys: Normal renal sizes. No hydronephrosis. Bladder: Unremarkable Reproductive Organs: Unremarkable Bowel: Nonspecific bowel gas pattern. Appendix: Unremarkable Lymph nodes: Unremarkable. Vasculature: Mild diffuse atherosclerotic calcifications are noted. Peritoneum / Retroperitoneum: Unremarkable Bones: Degenerative changes of the spine. Dextroscoliosis. CT/Abdomen/Pelvis WITH Contrast IMPRESSION: Fatty infiltration of the liver. Status post cholecystectomy. 26.8 mm hypodense nodule in the right adrenal gland suggestive of either an adenoma or myelolipoma. Reading Location: [facility] CC: Dr. Reba Molina MD ~ Optical Manufacturing Technician: Signed [facility] 06-25-2024 Note HNO ID: [id number] Author: EMMANUEL ROBB MD Service: ? Author Type: Physician Type: Progress Notes Filed: 07/24/2024 09:21 Note Text: Emmanuel Robb MD Department of Orthopaedics Orthopaedics [address] [place] [address] Dept: [phone] June 25, 2024 CHIEF COMPLAINT: New and Knee Pain of the Left Knee and Left knee meniscus tear HPI Patient here for evaluation left knee pain. Patient states in December she hired a personal carer and had her press 190 pounds and felt a pop in her knee. Klondike like knifes going through her knee. She went to her PCP and thought it was her back. She had done PT and made her knee pain worse. Seen her chiropractor and ordered an MRI that was done at [facility] in [place] on 04/11/24. Patient hand carried a copy of the MRI. She had x-rays also done at [facility]. She was unable to get a [...] and continue her light therapy. OBJECTIVE: Ms. 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 [id number] RPR INGUN HERNIA SLIDING ANY AGE 0111/27/1994 [...] use: No Medic (more content not included)... [facility] 06-25-2024 History of Present illness Narrative Emmanuel Robb MD Department of Orthopaedics Orthopaedics [address] [place], [place] [id number] Dept: [phone] June 25, 2024 CHIEF COMPLAINT: New and Knee Pain of the Left Knee and Left knee meniscus tear HPI Patient here for evaluation left knee pain. Patient states in December she hired a personal carer and had her press 190 pounds and felt a pop in her knee. Klondike like knifes going through her knee. She went to her PCP and thought it was her back. She had done PT and made her knee pain worse. Seen her chiropractor and ordered an MRI that was done at [facility] in [place] on 04/11/24. Patient hand carried a copy of the MRI. She had x-rays also done at [facility]. She was unable to get a [...] and continue her light therapy. OBJECTIVE: Ms. 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 [id number] RPR INGUN HERNIA SLIDING ANY AGE 0111/27/1994 [...] Musculoskeletal (see HPI) Psych (no depression, anxiety) Emmanuel Robb MD documented in this encounter [facility] 02-21-2024 Evaluation + Plan note Future Scheduled TestsMA Mammo Screening Bilateral w/ Tin 02/21/24BD Bone Density DEXA Axial Skeleton Adult (21 yrs or older) 09/24/24 [facility] 09-19-2022 Evaluation + Plan note Future Scheduled TestsPathology Rest Room Attendant Request 09/19/22 [facility] 09-19-2022 Evaluation + Plan note Diagnostic Tests PendingHPV Screen, DNA Probe 09/19/22 Future Scheduled TestsPathology Rest Room Attendant Request 09/19/22 [facility] Evaluation + Plan note No data available for this section [facility] Evaluation + Plan note Future Appointments Appointment Date:07/07/2025 08:30:00 AM Scheduled Provider:ROSETTA OCHOA MD Location:[facility] Appointment Type:[facility] Future Scheduled TestsBD Bone Density DEXA Axial Skeleton Adult (21 yrs or older) 09/24/24 [facility] Evaluation + Plan note Future Appointments Appointment Date:09/16/2025 03:30:00 PM Scheduled Provider:ROESTTA OCHOA MD Location:[facility] Appointment Type: OV Future Scheduled TestsEstradiol Level 08/18/25BD Bone Density DEXA Axial Skeleton Adult (21 yrs or older) 09/24/24US Pelvis Non-OB W/Transvaginal 07/23/25 [facility] Evaluation note No assessment inform ation available [facility] Work Phone: Evaluation note Diagnosis Routine medical exam- Primary Routine general medical examination at a health care facility MARCELINO on CPAP Obstructive sleep apnea (adult) (pediatric) Bursitis Other bursitis disorders Hirsutism Weight gain Abnormal weight gain Acute pain of left knee- Primary Radiculopathy, lumbar region Thoracic or lumbosacral neuritis or radiculitis, unspecified [facility] Encounter for gynecological examination without abnormal finding- Primary Screening for human papillomavirus Special screening examination for human papillomavirus (HPV) Encounter for screening mammogram for breast cancer Screening for colon cancer Special screening for malignant neoplasms, colon Symptoms, such as flushing, sleeplessness, headache, lack of concentration, associated with the menopause Vaginal dryness, menopausal [facility] No data available for this section [facility] Progress note No data available for this section [facility] Reason for referral (narrative)No reason for referral information availableWKettering [facility] Work Phone: Chief Complaint and Reason for Visit Chief Complaint SPRAIN AND CONTUSION Chief Complaint POST CHELY LEFT LEG PAIN Chief Complaint Admit Date colitis July 08, 2025 6: 33am Summary Purpose Family History No Family History Records FoundNo Family History Records Found No data available for this section No data available for this section No Family History Records Found No data available [...] ion and content) Care Team Personnel Name: WANYE, DANIEL LEAD SHIPPER-COMMERCIAL ATTACHE Position: P4 PLAY BACK OPERATOR Provider Member Role: Primary Care Physician Address: Address: [address] [place] [address] [address] [place] [address]- Care Team Related Persons Name: TOM MARADIAGA Name: DANNY MEIER Address: [address] [place], [place] [id number] [place] Name: DANNY MEIER Address: [address] [place], [place] [id number] Care Team Personnel Name: DANIEL WAYNE LEAD SHIPPER-COMMERCIAL ATTACHE Position: P4 PLAY BACK OPERATOR Provider Member Role: Primary Care Physician Address: Address: [address] [place] [address]- Care Team Related Persons Name: TOM MARADIAGA Name: DANNY MEIER Address: [address] [place], [place] [id number] [place] Name: DANNY MEIER Address: [address] [place], [place] [id number] [place] INFORMATION SOURCE (unrecogn ized section and content) DATE CREATED AUTHOR 10/14/2022 [facility] DATE CREATED AUTHOR AUTHOR'S ORGANIZ ATION 07/26/2024 [facility] DATE CREATED AUTHOR AUTHOR'S ORGANIZ ATION 07/19/2025 [facility] DATE CREATED AUTHOR AUTHOR'S ORGANIZ ATION 09/06/2025 [facility] DATE CREATED AUTHOR AUTHOR'S ORGANIZ ATION 10/03/2025 [facility] EPIC Care Teams (unrecognized sec tion and content) [...] June 17, 2025 End: June 17, 2025 Team Status: Inactive Member Role/Relationship Status Dates Dr. Reba Molina MD Primary Care Provider Acti ve Start: July 08, 2025 End: July 08, 2025 Dr. Reba Molina MD Attending Provider Active Start: July 08, 2025 End: July 08, 2025 Dr. Reba oMlina MD Referring Provider Active Start: July 08, 2025 End: July 08, 2025 Team Status: Active Member Role/Relationship Status Dates Dr. Reba Molina MD Primary Care Provider Acti ve Start: July 09, 2025 Dr. Reba Molina MD Attending Provider Active Start: July 09, 2025 Team Status: Active Member Role/Relationship Status Dates Dr. Reba Molina MD Primary Care Provider Acti ve Start: July 10, 2025 Dr. Reba Molina MD Attending Provider Active Start: July 10, 2025 Team Status: Inactive Member Role/Relationship Status Dates Dr. Reba Molina MD Primary Care Provider Acti ve Start: July 09, 2025 End: July 09, 2025 Dr. Reba Molina MD Attending Provider Active Start: July 09, 2025 End: July 09, 2025 Chemical Plant Operator Supervisor Relationship Specialty Start Date End Date Reba Molina MD [address] [facility] [address] [place] [phone] PCP - General Family Medicine 10/01/25 Chemical Plant Operator Supervisor Relationship Specialty Start Date End Date Reba Molina MD [address] [facility] [address] [place] [phone] PCP - General Family Medicine 10/01/25 Source Comments (unrecognize d section and content) In the event this informatio n is protected by the Federal Confidentiality of Alcohol and Drug Abuse Patient Records regulations: The Federal rules restrict any use of the information to criminally investigate or prosecute any alcohol or drug abuse patient.[facility] Reason for Visit (unrecogniz ed section and content) Reason Comments New Knee Pain Left knee meniscus tear Reason Comments Annual Exam VC for AI note, no c haperone FOR RECORDS PERTAINING TO PATIENTS WHO ARE [...] BE BASED ON THE PRIMARY CLINICAL RECORDS. [facility]. provides no warranty or guarantee of the accuracy or completeness of information in this document.
--- NOTE | 2025-11-08 08:06 | MRI_ITS ---
PROCEDURE: UPPER EXT JOINT ONLY(ROUTINE) 11/08/2025 REASON FOR EXAM: SHOULDER PAIN TECHNIQUE: Procedure Code: MRIUEJ Modality: MR Procedure: UPPER EXT JOINT ONLY(ROUTINE) Multiplanar and multisequence images were obtained without IV contrast administration. COMPARISON: none FINDINGS: Advanced glenohumeral degenerative arthropathic changes evident by exuberant marginal osteophytic lipping of its opposing articular surfaces with cortical irregularities, subcortical marrow edema and pseudocystic changes. Associated narrowed glenohumeral joint space. Moderate glenohumeral joint effusion showing synovial hypertrophy/edema. Diffuse high signal of the glenoid labrum most evidently involving the anterior and anteroinferior aspects. Degenerative arthropathic changes of the acromioclavicular joint evident by marginal osteophytic lipping, cortical irregularities and subcortical marrow edema of its opposing articular surfaces with hypertrophied edematous joint capsule inducing subacromial impingement. Thickening and high signal of the supraspinatus tendon reaching its articular surface with no evidence of complete fibers interruption. Thickening of the subscapularis tendon showing high signal with interstitial fluid signal abutting its articular surface. No evidence of complete fibers interruption. Interstitial high signal of the infraspinatus tendon with partial fibers interruption. Diffuse fatty changes of the teres minor muscle with increased signal of its tendon. The distal extra as well as the intra-articular segment of the long head of the biceps tendon shows high signal. Fluid signal distensing its sheath Fluid signal seen along the subcoracoid recess. Subcortical pseudocystic changes of the posterolateral aspect of the humeral head. No marrow infiltrative lesions. The neurovascular bundles appear unremarkable. MRI/Upper Ext Joint Only(Routine) IMPRESSION: Advanced degenerative arthropathy of the glenohumeral joint with degenerative s ignal of the glenoid labrum. Moderate glenohumeral joint effusion showing synovial hypertrophy/edema. Degenerative arthropathic changes of the acromioclavicular joint with subacromi al impingement. Supraspinatus tendonitis with partial thickness tear. Subscapularis tendonitis with partial thickness tear. Infraspinatus tendonitis with partial thickness tear. Teres minor tendinosis with fatty changes of its muscle belly. Tendonitis and tenosynovitis of the long head of biceps tendon. Reading [facility]
== END | disposition home or self-care (01) ==
LOC: MRI 08:00
PROVIDERS: PCP Family Medicine; Referring Provider Family Medicine; Visit Provider Family Medicine
DX: M25.511 Pain in right shoulder (principal)
CPT/HCPCS: 73221